=== PATIENT | male | born 1945 | race Caucasian/White ===

== ENCOUNTER 2024-06-13 14:41 | Inpatient (IN) | payer MEDICARE, SELFPAY ==
--- NOTE | ~2024-06-13 | CT_ITS ---
CTA brain carotid Ordering provider: Winnie Becerra APRN History: . seizure . Comparison: 06/13/2024 Technique: CT angiogram head and neck was performed following timed intravenous injection of contrast . Thin slice axial images and reformatted coronal images were obtained. Three dimensional reformatted images of the brain were also obtained using a [employer] workstation. Radiation reduction technique ut ilized. DLP is 1884.42 mGy-cm. 100 mL Omnipaque 350 was given IV. FINDINGS: HEAD: --ANTERIOR AND MIDDLE CEREBRAL ARTERIES AND BRANCHES: Normal caliber and contour. --INTERNAL CAROTID ARTERIES: Mild atheromatous disease but no significant stenosis. No occlusion. --BASILAR ARTERY AND BRANCHES: Mild atheromatous disease but no stenosis or occlusion. --POSTERIOR CEREBRAL ARTERIES: Normal caliber and contour --POSTERIOR COMMUNICATING ARTERIES: Not visualized which is probably related to congenital absence or small size. --ANEURYSM: None visualized. --BRAIN: Brain atrophy with deep white matter ischemic changes. Old lacunar infarct in the right basa l ganglia. Mild ventricular dilatation. --BONES AND SUPERFICIAL SOFT TISSUES: Normal. --PARANASAL SINUSES AND MASTOIDS: Normal. NECK: --RIGHT CERVICAL CAROTID SYSTEM: No significant atherosclerotic changes. Narrowing at the origin of t he right internal carotid artery is seen. Percent stenosis per NASCET criteria is 50%. No carotid dis section. Otherwise, no significant atheromatous disease or stenosis of the cervical carotid system. --LEFT CERVICAL CAROTID SYSTEM: Tortuosity in the left internal carotid artery with severe angulation . Mild atheromatous disease of the carotid bulb and proximal internal carotid artery without signific ant stenosis. Percent stenosis per NASCET criteria is 50%. No carotid dissection. Otherwise, no significant atheromatous disease or stenosis of the cervical carotid system. --VERTEBRAL ARTERIES: Dominant left vertebral artery. The right is very small in caliber. --VISUALIZED AORTIC ARCH AND BRANCHING VESSELS: Normal caliber and contour. No significant atheromato us disease. --SOFT TISSUES: Normal. --CERVICAL SPINE: Age appropriate degenerative changes. IMPRESSION: 1. CTA head and neck. Percent stenosis per NASCET criteria is 50% on the right most likely due to n oncalcified plaques and 50% on the left side due to significant kinking. 2. Tiny caliber of the right vertebral artery with nonvisualization of the intracranial portion. . Reviewed, dictated and finalized at location A. IMPRESSION: 1. CTA head and neck. Percent stenosis per NASCET criteria is 50% on the righ t most likely due to noncalcified plaques and 50% on the left side due to signi ficant kinking. 2. Tiny caliber of the right vertebral artery with nonvisualization of the int racranial portion. .
--- NOTE | ~2024-06-13 | XR_ITS ---
EXAMINATION: XR lumbar puncture diagnostic DATE: 06/16/2024 13:39 INDICATION: Meningitis. TECHNIQUE: The procedure including the risks, benefits, and alternatives was discussed with the patie nt. Risks discussed included spinal headache, cerebrospinal fluid leak, bleeding, and infection. The patient understood the risks and agreed to proceed. A timeout was performed to verify the patient' s name, date of , and procedure to be performed. The skin overlying the L3-L4 level was prepped and draped in usual sterile fashion. Subcutaneous 1% lidocaine was used for local anesthesia. A 20 gauge spinal needle was advanced under fluoroscopic guidance. The needle was removed and the entry s ite was cleaned and dressed. There were no immediate complications. Fluoroscopy exposure time was 0. 1 minutes. The total number of images was 2. FINDINGS: Real-time fluoroscopy demonstrates the needle at the L3-L4 level. The opening pressure was 13 cm water (Normal range is variably defined as 6-20 cm water and up to 25 cm water in obese patient s. Pressure >25 cm water is one of the modified Dandy criteria for idiopathic intracranial hypertensi on). 13 mL of orange fluid was collected in 4 tubes. IMPRESSION: 1. Successful fluoro-guided lumbar puncture. Reviewed, dictated and finalized at location A.
--- NOTE | ~2024-06-13 | CT_ITS ---
EXAMINATION: CT brain wo con DATE: 06/13/2024 15:44 INDICATION: Seizure TECHNIQUE: Computed tomography (CT) of the head was performed without intravenous contrast. Sagittal and coronal reconstructions were performed. The mA was adjusted according to patient size. Iterative reconstruction technique was employed. The dose-length product was 756.67 mGy-cm. COMPARISON: None FINDINGS: Chronic infarct at the anterior right basal ganglia. No acute intracranial hemorrhage, acute infarcti on or abnormal extra axial fluid collection. There is mild scattered white matter hypoattenuation con sistent with chronic small vessel ischemic disease. Symmetric prominence of the sulci and ventricles consistent with moderate to severe age-appropriate diffuse cerebral volume loss. No mass/mass effect . Small left mastoid effusion. The orbits and paranasal sinuses are normal. IMPRESSION: 1. Old infarct at the right basal ganglia. No acute intracranial process. 2. Age-related changes including moderate to severe diffuse volume loss and mild scattered white ravi er hypoattenuation consistent with chronic small vessel ischemic disease. Reviewed, dictated and finalized at location A. IMPRESSION: 1. Old infarct at the right basal ganglia. No acute intracranial process. 2. Age-related changes including moderate to severe diffuse volume loss and mil d scattered white matter hypoattenuation consistent with chronic small vessel i schemic disease.
--- NOTE | ~2024-06-13 | MR_ITS ---
EXAMINATION: MR brain/brain stem wo/w con DATE: 06/16/2024 14:48 INDICATION: Seizure disorder. TECHNIQUE: Magnetic resonance imaging (MRI) of the brain and brainstem was performed without and with 16 mL MultiHance intravenous contrast. COMPARISON: Head CT 06/16/2024 FINDINGS: There is an old infarct in the right basal ganglia. There are scattered areas of nonspecifi c increased T2-weighted signal intensity in the cerebral white matter and gen. There is no intracran ial hemorrhage, acute infarction, or abnormal intracranial mass lesion. There is ex vacuo dilatation of body of right lateral ventricle. There is a small left mastoid effusion. The orbits are normal. Th ere is mild mucosal thickening in the ethmoid sinuses. IMPRESSION: 1. Old infarct in the right basal ganglia. 2. Mild nonspecific cerebral white matter disease and pontine disease, which likely represents chroni c small vessel ischemic disease. Reviewed, dictated and finalized at location A. IMPRESSION: 1. Old infarct in the right basal ganglia. 2. Mild nonspecific cerebral white matter disease and pontine disease, which dwight killian represents chronic small vessel ischemic disease.
[2024-06-13 14:56] VITALS: BP 130/66; PULSE 68; RESP 18; TEMP 36.6; O2SAT 96
--- NOTE | 2024-06-13 14:59 | ECG_ITS ---
Test Date: 2024-06-13 15:10:22 Measurements Intervals [place] Rate: 64 P: 12 ME: 149 QRS: 12 QRSD: 88 T: 82 QT: 425 QTc: 439 Interpretive Statements SINUS RHYTHM NONSPECIFIC ST & T-WAVE ABNORMALITY BORDERLINE ECG No previous ECG available for comparison Electronically Signed On 06-13-2024 18:21:07 CDT by Benjie Elliott M.D.
--- NOTE | 2024-06-13 15:00 | ED.GENADULT ---
HPI - General Adult General Chief complaint: Skin/Abscess/Foreign Body <Arvind Leyva APRN - Last Filed: 06/13/24 15:02> Stated complaint: rash <Arvind Leyva APRN - Last Filed: 06/13/24 15:02> Time Seen by Provider: 06/13/24 15:00 <Arvind Leyva APRN - Last Filed: 06/13/24 15:02> Patient was waiting for triage and had a witness seizure by nursing staffing coordinator. patient is A&Ox1. patient states he does not have a hx of seizures. patient initial complaint was for a rash to BUE. patient is from [place] PE: A&OX1, BS CTA, HR RRR with no murmur, BUE erythema <Arvind Leyva APRN - Last Filed: 06/13/24 15:02> Patient was waiting for triage and had a witness seizure by nursing staffing coordinator. patient is A&Ox1. patient states he does not have a hx of seizures. patient initial complaint was for a rash to BUE. patient is from [place] PE: A&OX1, BS CTA, HR RRR with no murmur, BUE erythema This is a 78-year-old male with dementia presenting for a rash in itching in his hands. This symptoms started yesterday. He does not have any difficulty breathing throat swelling abdominal pain nausea vomiting or diarrhea. No history of allergic reactions. No known allergen triggers. While the patient was sitting in our lobby there was concern that he had a seizure. Per the triage nurse he flexed his arms, turned his head to the right and had either tremors and/or tonic clonic movement. He was then brought back to a room. No tongue biting, no loss of urinary continence. No history of seizures. Patient did not have any postictal period. Patient does not have any chest pain difficulty breathing or history of cardiac dysrhythmia. Patient himself does not remember the event at all. <Pablo Sparks MD - Last Filed: 06/13/24 20:29> Related Data Home medications: Home Medications Medication Instructions Recorded Confirmed fluoxetine 20 mg capsule mg 06/13/24 rosuvastatin 10 mg tablet mg 06/13/24 <Arvind Leyva APRN - Last Filed: 06/13/24 15:02> Allergies/adverse reactions: Allergies Allergy/AdvReac Type Severity Reaction Status Date / Time No Known Allergies Allergy Verified 06/13/24 15:48 <Arvind Leyva APRN - Last Filed: 06/13/24 15:02> Exam Narrative: APPEARANCE: No apparent distress. A&O x2 Head: atraumatic. EYES: EOMI, NOSE: Atraumatic NECK: Trachea midline RESPIRATORY: No increased rate of breathing, clear to auscultation CARDIOVASCULAR: RRR, ABDOMINAL: Non-distended MUSCULOSKELETAl: No obvious deformities NEURO: Alert. Cranial nerves 2-12 grossly intact. Sensation light touch, motor function cerebellar function intact for 4 extremities. Gait exam was deferred SKIN:: Margarita erythematous rash over the patient's hands and forearms. No warmth to touch does not appear infectious, mild edema of the hands PSYCHIATRIC: Normal affect <Pablo Sparks MD - Last Filed: 06/13/24 20:29> Course Vital Signs Vital signs: Vital Signs Temperature 97.8 F 06/13/24 14:56 Pulse Rate 68 06/13/24 14:56 Respiratory Rate 18 06/13/24 14:56 Blood Pressure 130/66 06/13/24 14:56 Pulse Oximetry 96 06/13/24 14:56 Temperature 97.8 F 06/13/24 14:56 Pulse Rate 85 06/13/24 18:59 Respiratory Rate 18 06/13/24 18:59 Blood Pressure 130/73 06/13/24 18:59 Pulse Oximetry 97 06/13/24 18:59 <Arvind Leyva APRN - Last Filed: 06/13/24 15:02> Vital Signs Temperature 97.8 F 06/13/24 14:56 Pulse Rate 68 06/13/24 14:56 Respiratory Rate 18 06/13/24 14:56 Blood Pressure 130/66 06/13/24 14:56 Pulse Oximetry 96 06/13/24 14:56 Temperature 97.8 F 06/13/24 14:56 Pulse Rate 85 06/13/24 18:59 Respiratory Rate 18 06/13/24 18:59 Blood Pressure 130/73 06/13/24 18:59 Pulse Oximetry 97 06/13/24 18:59 <Pablo Sparks MD - Last Filed: 06/13/24 20:29> Medical Decision Making MDM Narrative Medical decision making narrative: -Course: 78-year-old mal
[2024-06-13 15:11] LABS: Basophils Percent Auto 0.2 % (0.2-1.2); Eosinophils Absolute Auto 0.1 K/mm3 (0-0.3); Hematocrit 40.8 % (42.0-52.0); Hemoglobin 13.7 g/dL (14.0-18.0); Immature Granulocyte Absolute 0.05 K/mm3 (0.00-0.031); Immature Granulocyte Percent A 0.4 % (0-0.5); Lymphocytes Absolute Auto 2.57 K/mm3 (0.9-3.2); Lymphocytes Percent Auto 19.6 % (18.3-44.2); Mean Corpuscular HGB Conc 33.6 g/dl (32-36); Mean Corpuscular Hemoglobin 31.5 pg (26-34); Mean Corpuscular Volume 93.8 fl (80-100); Mean Platelet Volume 10.6 fl (7.4-10.4); Monocytes Absolute Auto 0.8 K/mm3 (0.1-0.6); Monocytes Percent Auto 6.2 % (2.6-8.5); Neutrophils Absolute Auto 9.6 K/mm3 (1.3-6.7); Neutrophils Percent Auto 72.6 % (45.5-73.1); Platelet Count Result 258 k/mm3 (150-375); Red Blood Count 4.35 M/mm3 (4.6-6.20); Red Cell Distribution Width 13.4 % (11.5-14.5); White Blood Count 13.1 K/mm3 (4.5-10.0)
[2024-06-13 15:16] LABS: Glucose Point of Care 110 mg/dl (65-105)
[2024-06-13 15:26] LABS: Lactic Acid Reflex 2.7 mmol/L (0.7-2.0)
[2024-06-13 15:27] LABS: Alanine Aminotransferase 21 U/L (6-50); Albumin Level 4.4 g/dL (3.5-5.1); Alkaline Phosphatase 47 U/L (38-126); Anion Gap 13 mmol/L (4-12); Aspartate Amino Transferase 30 U/L (17-59); Bilirubin,Total 1.1 mg/dL (0.2-1.3); Blood Urea Nitrogen 8 mg/dL (9-20); Calcium 9.2 mg/dL (8.4-10.2); Carbon Dioxide 24 mmol/L (22-30); Chloride 94 mmol/L (98-107); Estimated CRCL calculation 51 ml/min; Estimated Glomerular Filt Rate > 60; Glucose 116 mg/dL (65-110); Potassium 4.1 mmol/L (3.4-5.0); Sodium 131 mmol/L (137-145)
[2024-06-13 15:32] LABS: Partial Thromboplastin Time 28.1 Seconds (22.3-36.8); Prothrombin Time 13.9 Seconds (11.1-14.7)
[2024-06-13 15:39] LABS: Troponin I < 0.012 ng/mL (0.000-0.034)
--- NOTE | 2024-06-13 15:44 | PC.NURSE ---
Patient in cat scan
[2024-06-13] MEDS: dexAMETHasone SOD PHOS INJ 10 MG/ML 1 ML VIAL IV PUSH (15:48)
[2024-06-13] MEDS: SODIUM CHLORIDE 0.9% IV 1,000 ML 999 ML IV CONT (15:48)
[2024-06-13] MEDS: diphenhydrAMINE HCl INJ 50 MG/ML VIAL 25 MG IV PUSH (15:49)
[2024-06-13] MEDS: FAMOTIDINE 20 MG/2 ML VIAL 40 MG IV PUSH (15:49)
[2024-06-13 15:57] VITALS: BP 133/83; PULSE 78; RESP 20; O2SAT 96
--- NOTE | 2024-06-13 17:32 | PC.NURSE ---
Patient assisted in using urinal Provider at bedside for update
[2024-06-13 17:59] LABS: Add Urine Microscopic? NO; Appearance Urine Clear (Clear); Bilirubin Urine Negative (Negative); Blood Urine Negative (Negative); Color Urine Yellow (Yellow); Glucose Urine UA Negative (Negative); Ketones Urine Negative (Negative); Leukocyte Esterase Ur Negative LEU/UL (Negative); Nitrate Urine Negative (Negative); Protein Urine Negative (Negative); Specific Grav Ur 1.009 (1.001-1.035); Urobilinogen Urine 0.2 mg/dL (<2.0)
[2024-06-13 18:08] LABS: Reflex Lactic Acid Yes or No Add Lactic
[2024-06-13] MEDS: levETIRAcetam 1500MG/NACL100ML 1,500 MG/100 ML BAG 400 MG IVPB (18:10)
[2024-06-13 18:16] LABS: Amphetamine Screen Urine Negative (Negative); Barbiturate Screen Urine Negative (Negative); Benzodiazepines Screen Urine Negative (Negative); Cannabinoid Screen Urine Negative (Negative); Cocaine Screen Urine Negative (Negative); Methadone Screen Urine Negative (Negative); Opiate Screen Urine Negative (Negative); Phencyclidine Screen Urine Negative (Negative)
[2024-06-13 18:32] LABS: Lactic Acid 1.7 mmol/L (0.7-2.0)
[2024-06-13 18:59] VITALS: BP 130/73; PULSE 85; RESP 18; O2SAT 97
[2024-06-13 19:10] LABS: Influenza A QL RT-PCR Negative (Negative); Influenza B QL RT-PCR Negative (Negative); RSV RNA, RT-PCR Negative (Negative); SARS-CoV-2 RNA PCR Negative (Negative)
[2024-06-13 20:30] VITALS: BP 138/80; PULSE 79; RESP 18; O2SAT 97
--- NOTE | 2024-06-13 22:24 | ADMGEN ---
This patient, Zander Rodriguez, was admitted to Medical Room 341-01. Patient/family oriented to hospital policies and general routines including ID bracelet, bed and alarms, visiting hours, pain management, procedures, bathroom and other care routines, personal items, smoking policy, room service/diet, and visiting hours. Information on how to activate the Rapid Response Team has been discussed. Patient/Family are encouraged to report perceived risks to care and to ask questions if they do not understand what they are told or what they should do.
[2024-06-13 22:41] VITALS: BMI 28.3
[2024-06-13 22:56] VITALS: PULSE 72
[2024-06-13 23:01] VITALS: BP 105/53; PULSE 82; RESP 18; TEMP 36.4; O2SAT 96
--- NOTE | 2024-06-13 23:40 | PM.IMHP ---
H&P: HPI History of Present Illness Date/Time: 06/13/24 23:10 Chief Complaint: Rash Narrative: 78-year-old male with past medical history of dementia, depression and COPD who presented to the ER from [facility] due to rash. The day prior to presentation patient developed rash to his medial right wrist at an extended up his arms to his elbows and across his torso and trunk. The rash was pruritic in nature. He denies any known eliciting symptoms. It is unknown if is facility may have changed detergents. He it does have. Patient was started on fluoxetine last month but otherwise no other known medication changes. The patient is alert orient x3 currently but tends to have disproportionate recall of prior events. He states that he was just discharged from [facility] last week in his daughter actually reports that he has not been hospitalized since September of last year. Patient did receive Decadron and Benadryl in the ER was significant improvement in his rash. However while patient was in the waiting room awaiting triage patient did turn his head to the right and flexed his arms. It is unclear if he had tremors or tonic clonic movement. Patient did not have any mouth trauma loss of bladder or bowel control. He did not have a postictal period and was back to his baseline immediately. Patient did not recall the event and is frustrated that staff keeps asking him about possibly having a seizure. His only concern was his recent rash. He denies any chest pain. He was not noted have any arrhythmia but was not placed on the monitor in still after he event had occurred. CT scan was performed in the ER demonstrated no acute intercranial process. Patient did receive a dose of Keppra in the ER. Patient was admitted for observation and evaluation by Neurology. Review of Systems Review of Systems: Review of systems was attempted but limited due to patient's dementia [facility] Past Medical History Medical History (Updated 06/13/24 @ 23:50 by Raven Francis DO) COPD (chronic obstructive pulmonary disease) Dementia Depression Hyperlipidemia Surgical History Surgical History (Updated 06/13/24 @ 23:48 by Raven Francis DO) History of two vessel coronary artery bypass graft Status post full thickness skin graft Left forearm Family History Family History Mother Heart disease Father Heart disease Social History Social History (Updated 06/14/24 @ 02:22 by Raven Francis, DO) Social History: Patient reports that 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 He reports that he used to smoke a pack of cigarettes per day for ?a few years? but quit when he was quite young. He used to drink alcohol episodically but quit doing so many years ago. He denies any illicit substance use. Code status: DNR/DNI Surrogate decision maker: Edward Nice (Daughter) Smoking packs per day: 1 Smoking cigarettes per day: 20.0 Smoking status: Former smoker Alcohol intake: former Substance use: never Do You Feel Safe in your Home?: Yes Lack of Transportation: No Lack of Food: Never True Current Housing: I Have Housing Concerned About Future Housing: No Difficulty Paying Gas/Electric Bills: No Difficulty Paying for Meds: No Currently Unemployed: No Education: High School Diploma/GED Difficulty w/ Childcare or Family Care: No Spiritual care concerns: No Meds Home Medications and Allergies Home Medications Medication Instructions Recorded Confirmed Type Antacid 650 mg PO Q8-10H PRN Indigestion 06/13/24 06/13/24 History acetaminophen 650 mg 650 mg PO Q6-8H PRN Pain 06/13/24 06/13/24 History tablet,extended release albuterol sulfate 90 mcg/actuation 2 inh inhalation Q6-8H PRN Wheezing 06/13/24 06/13/24 History aerosol inhaler aspirin 81 mg capsule 81 mg PO DAILY 06/13/24 06/13/24 History fluoxetine 20 mg capsule
[2024-06-14] VITALS (14 sets, daily range): BP systolic 107–141; BP diastolic 62–73; PULSE 71–83; RESP 18; TEMP 36.3–36.5; O2SAT 94–97
[2024-06-14] MEDS: MULTIVITAMINS /C LUTEIN (CENTRUM SILVER) TABLET *BKC 1 TAB PO (09:13)
[2024-06-14] MEDS: ENOXAPARIN 40 MG/0.4 ML SYRINGE SUB-Q (09:13)
[2024-06-14] MEDS: guaiFENesin 12 HR 600 MG TABCR PO ×2 (09:14→20:53)
[2024-06-14] MEDS: ASPIRIN 81 MG ENTERIC TABLET PO (09:14)
[2024-06-14] MEDS: FOLIC ACID 1 MG TABLET PO (09:14)
[2024-06-14] MEDS: ROSUVASTATIN 10 MG TABLET PO (09:14)
[2024-06-14 10:01] LABS: Hematocrit 35.5 % (42.0-52.0); Mean Corpuscular HGB Conc 33.8 g/dl (32-36); Mean Corpuscular Hemoglobin 31.3 pg (26-34); Mean Corpuscular Volume 92.7 fl (80-100); Mean Platelet Volume 11.3 fl (7.4-10.4); Platelet Count Result 227 k/mm3 (150-375); Red Blood Count 3.83 M/mm3 (4.6-6.20); Red Cell Distribution Width 13.5 % (11.5-14.5); White Blood Count 10.7 K/mm3 (4.5-10.0)
[2024-06-14 10:13] LABS: Alanine Aminotransferase 18 U/L (6-50); Albumin Level 3.9 g/dL (3.5-5.1); Alkaline Phosphatase 42 U/L (38-126); Anion Gap 10 mmol/L (4-12); Aspartate Amino Transferase 25 U/L (17-59); Bilirubin,Total 0.7 mg/dL (0.2-1.3); Blood Urea Nitrogen 12 mg/dL (9-20); Calcium 9.1 mg/dL (8.4-10.2); Carbon Dioxide 23 mmol/L (22-30); Chloride 100 mmol/L (98-107); Estimated CRCL calculation 63 ml/min; Estimated Glomerular Filt Rate > 60; Glucose 109 mg/dL (65-110); Magnesium 1.9 mg/dL (1.6-2.3); Potassium 3.9 mmol/L (3.4-5.0); Sodium 133 mmol/L (137-145)
--- NOTE | 2024-06-14 17:05 | WPDPN ---
Progress Note: A&P Assessment and Plan (1) Allergic reaction: Qualifiers: Encounter type: subsequent encounter Qualified Code(s): T78.40XD - Allergy, unspecified, subsequent encounter Code(s): T78.40XA - Allergy, unspecified, initial encounter Status: Acute (2) Consciousness loss, transient: Code(s): R55 - Syncope and collapse Status: Acute (3) Dementia: Qualifiers: Dementia type: unspecified type Dementia severity: mild Dementia behavioral or psychological symptom: with mood disturbance Qualified Code(s): F03.A3 - Unspecified dementia, mild, with mood disturbance Code(s): F03.90 - Unspecified dementia, unspecified severity, without behavioral disturbance, psychotic disturbance, mood disturbance, and anxiety Status: Acute (4) Hyponatremia: Code(s): E87.1 - Hypo-osmolality and hyponatremia Status: Acute (5) Leukocytosis: Qualifiers: Leukocytosis type: unspecified Qualified Code(s): D72.829 - Elevated white blood cell count, unspecified Code(s): D72.829 - Elevated white blood cell count, unspecified Status: Acute (6) Lactic acidosis: Code(s): E87.20 - Acidosis, unspecified Status: Acute Plan 06/14/2024 interval history: patient has not had seizures like activities while on the floor, patient was loaded with levetiracetam 1500mg IV x1. and this morning his rash on his hand nearly resolved, unclear if the rash was allergic or infectious however patient was given one time dose of dexamethasone, Famotidine, and diphenhydramine. he his eating his breakfast and has no complaints, however patient has dementia and poor historian. to further evaluate patient will be seen by a neurologist on Sunday, will have PT/OT. Later patient daughter arrived and gave updates, will wait until Sunday for recommendation from the neurologist Subjective Date/time seen: 06/14/24 17:05 Interval history: Chief Complaint: Rash H&H-JNA-Cyewdgqgd: 78-year-old male with past medical history of dementia, depression and COPD who presented to the ER from [facility] due to rash. The day prior to presentation patient developed rash to his medial right wrist at an extended up his arms to his elbows and across his torso and trunk. The rash was pruritic in nature. He denies any known eliciting symptoms. It is unknown if is facility may have changed detergents. He it does have. Patient was started on fluoxetine last month but otherwise no other known medication changes. The patient is alert orient x3 currently but tends to have disproportionate recall of prior events. He states that he was just discharged from [facility] last week in his daughter actually reports that he has not been hospitalized since September of last year. Patient did receive Decadron and Benadryl in the ER was significant improvement in his rash. However while patient was in the waiting room awaiting triage patient did turn his head to the right and flexed his arms. It is unclear if he had tremors or tonic clonic movement. Patient did not have any mouth trauma loss of bladder or bowel control. He did not have a postictal period and was back to his baseline immediately. Patient did not recall the event and is frustrated that staff keeps asking him about possibly having a seizure. His only concern was his recent rash. He denies any chest pain. He was not noted have any arrhythmia but was not placed on the monitor in still after he event had occurred. CT scan was performed in the ER demonstrated no acute intercranial process. Patient did receive a dose of Keppra in the ER. Patient was admitted for observation and evaluation by Neurology. 06/14/2024 interval history: patient has not had seizures like activities while on the floor, patient was loaded with levetiracetam 1500mg IV x1. and this morning his rash on his hand nearly resolved, unclear if the rash was allergic or i
[2024-06-15] VITALS (10 sets, daily range): BP systolic 95–155; BP diastolic 51–77; PULSE 62–94; RESP 16–18; TEMP 36–36.4; O2SAT 93–96
[2024-06-15 05:24] LABS: Hematocrit 34.6 % (42.0-52.0); Hemoglobin 11.6 g/dL (14.0-18.0); Mean Corpuscular HGB Conc 33.5 g/dl (32-36); Mean Corpuscular Hemoglobin 31.4 pg (26-34); Mean Corpuscular Volume 93.5 fl (80-100); Mean Platelet Volume 10.5 fl (7.4-10.4); Platelet Count Result 215 k/mm3 (150-375); Red Cell Distribution Width 13.5 % (11.5-14.5); White Blood Count 11.1 K/mm3 (4.5-10.0)
[2024-06-15 05:38] LABS: Anion Gap 9 mmol/L (4-12); Blood Urea Nitrogen 15 mg/dL (9-20); Calcium 8.8 mg/dL (8.4-10.2); Carbon Dioxide 25 mmol/L (22-30); Chloride 100 mmol/L (98-107); Estimated CRCL calculation 63 ml/min; Estimated Glomerular Filt Rate > 60; Glucose 93 mg/dL (65-110); Magnesium 1.8 mg/dL (1.6-2.3); Potassium 4.2 mmol/L (3.4-5.0); Sodium 134 mmol/L (137-145)
[2024-06-15] MEDS: ENOXAPARIN 40 MG/0.4 ML SYRINGE SUB-Q (09:00)
[2024-06-15] MEDS: MULTIVITAMINS /C LUTEIN (CENTRUM SILVER) TABLET *BKC 1 TAB PO (09:00)
[2024-06-15] MEDS: guaiFENesin 12 HR 600 MG TABCR PO ×2 (09:00→20:42)
[2024-06-15] MEDS: ROSUVASTATIN 10 MG TABLET PO (09:01)
[2024-06-15] MEDS: FOLIC ACID 1 MG TABLET PO (09:01)
[2024-06-15] MEDS: ASPIRIN 81 MG ENTERIC TABLET PO (09:02)
--- NOTE | 2024-06-15 14:05 | WPDPN ---
Progress Note: A&P Assessment and Plan (1) Allergic reaction: Qualifiers: Encounter type: subsequent encounter Qualified Code(s): T78.40XD - Allergy, unspecified, subsequent encounter Code(s): T78.40XA - Allergy, unspecified, initial encounter Status: Acute (2) Consciousness loss, transient: Code(s): R55 - Syncope and collapse Status: Acute (3) Dementia: Qualifiers: Dementia type: unspecified type Dementia severity: mild Dementia behavioral or psychological symptom: with mood disturbance Qualified Code(s): F03.A3 - Unspecified dementia, mild, with mood disturbance Code(s): F03.90 - Unspecified dementia, unspecified severity, without behavioral disturbance, psychotic disturbance, mood disturbance, and anxiety Status: Acute (4) Hyponatremia: Code(s): E87.1 - Hypo-osmolality and hyponatremia Status: Acute (5) Leukocytosis: Qualifiers: Leukocytosis type: unspecified Qualified Code(s): D72.829 - Elevated white blood cell count, unspecified Code(s): D72.829 - Elevated white blood cell count, unspecified Status: Acute (6) Lactic acidosis: Code(s): E87.20 - Acidosis, unspecified Status: Acute Plan 06/15/2024 interval history: patient has not had seizures like activities while on the floor, patient was loaded with levetiracetam 1500mg IV x1. upon arrival in ER and this morning his rash on his hand nearly resolved, unclear if the rash was allergic or infectious however patient was given one time dose of dexamethasone, Famotidine, and diphenhydramine. patient has dementia and poor historian. to further evaluate patient will be seen by a neurologist on Sunday, will have PT/OT. on 06/14 patient daughter arrived and gave updates, will wait until Sunday for recommendation from the neurologist. Subjective Date/time seen: 06/15/24 14:05 Interval history: Chief Complaint: Rash H&E-UMI-Hsdqogbhy: 78-year-old male with past medical history of dementia, depression and COPD who presented to the ER from [facility] due to rash. The day prior to presentation patient developed rash to his medial right wrist at an extended up his arms to his elbows and across his torso and trunk. The rash was pruritic in nature. He denies any known eliciting symptoms. It is unknown if is facility may have changed detergents. He it does have. Patient was started on fluoxetine last month but otherwise no other known medication changes. The patient is alert orient x3 currently but tends to have disproportionate recall of prior events. He states that he was just discharged from [facility] last week in his daughter actually reports that he has not been hospitalized since September of last year. Patient did receive Decadron and Benadryl in the ER was significant improvement in his rash. However while patient was in the waiting room awaiting triage patient did turn his head to the right and flexed his arms. It is unclear if he had tremors or tonic clonic movement. Patient did not have any mouth trauma loss of bladder or bowel control. He did not have a postictal period and was back to his baseline immediately. Patient did not recall the event and is frustrated that staff keeps asking him about possibly having a seizure. His only concern was his recent rash. He denies any chest pain. He was not noted have any arrhythmia but was not placed on the monitor in still after he event had occurred. CT scan was performed in the ER demonstrated no acute intercranial process. Patient did receive a dose of Keppra in the ER. Patient was admitted for observation and evaluation by Neurology. 06/15/2024 interval history: patient has not had seizures like activities while on the floor, patient was loaded with levetiracetam 1500mg IV x1. upon arrival in ER and this morning his rash on his hand nearly resolved, unclear if the rash was allergic or infectious however
[2024-06-15] MEDS: diphenhydrAMINE HCl CAP 25 MG CAPSULE PO (20:42)
[2024-06-15] MEDS: HYDROCORTISONE 1% 30 GM CREAM 1 APPLIC TOPICAL (20:42)
[2024-06-16] VITALS (13 sets, daily range): BP systolic 133–152; BP diastolic 61–84; PULSE 56–76; RESP 16–20; TEMP 36.3–36.4; O2SAT 94–96
--- NOTE | 2024-06-16 | ECHO_ITS ---
Patient Info Name: Zander Rodriguez Age: 78 years : 1945 Gender: Male Ht: 67 in Wt: 181 lbs BSA: 1.99 m2 HR: 69 bpm BP: 152 / 70 mmHg Heart Rhythm: Sinus Rhythm Technical Quality: Good Exam Date: 06/16/2024 3:59 PM Exam Location: Echo Lab Patient Status: Inpatient Admit Date: 06/15/2024 Staff Ordering Physician: Winnie Becerra APRN Director Biology: Salome Miller RDCS Attending Provider: Winnie Becerra APRN Referring Physician: Mariam DANIELS; Exam Type: CA echo doppler w bubble study Study Info Indications - seizure/TIA Complete two-dimensional, color flow and Doppler transthoracic echocardiogram is performed with agitated saline. Summary 1. Left ventricular chamber dimension is normal. 2. Left ventricular systolic function is normal, estimated at 50-55%. 3. There is mildly increased left ventricular wall thickness. 4. The left ventricular diastolic function is grade I diastolic dysfunction. 5. Right ventricular systolic function is normal. 6. Left atrial chamber dimension is mildly enlarged. 7. Intact interatrial septum visualized by color flow and agitated saline imaging. Negative bubble study. 8. There is mild to moderate mitral valve regurgitation. Left Ventricle Left ventricular chamber dimension is normal. Left ventricular systolic function is normal, estimated at 50-55%. There is mildly increased left ventricular wall thickness. The left ventricular diastolic function is grade I diastolic dysfunction. Right Ventricle Right ventricular chamber dimension is normal. Right ventricular systolic function is normal. Left Atria Left atrial chamber dimension is mildly enlarged. Right Atria Right atrial chamber dimension is normal. Atrial Septum Intact interatrial septum visualized by color flow and agitated saline imaging. Negative bubble study. Aortic Valve The aortic valve is not well visualized. There is no aortic valve stenosis. There is trace aortic valve regurgitation. Pulmonic Valve The pulmonic valve is not well visualized. Mitral Valve There is mild to moderate mitral valve regurgitation. The mitral valve annulus is moderately calcified. Tricuspid Valve There is trace tricuspid valve regurgitation. Pericardium/Pleural The pericardium appears epicardial fat pad. There is no pericardial effusion. Inferior Vena Cava Inferior vena cava is not well visualized. Aorta The aortic root size at the sinus of Valsalva is normal. Left Ventricular Outflow Tract Name Value Normal LVOT 2D LVOT Diameter 2.1 cm LVOT Doppler LVOT Peak Gradient 3 mmHg LVOT Mean Gradient 2 mmHg LVOT VTI 22 cm LVOT VTI/AV VTI Ratio 0.9 LVOT Stroke Volume 78 ml LVOT CO 4.3 l/min LVOT CI 2.2 l/min/m2 Pulmonic Valve Name Value Normal PV Doppler
[2024-06-16 05:37] LABS: Hematocrit 36.9 % (42.0-52.0); Hemoglobin 12.5 g/dL (14.0-18.0); Mean Corpuscular HGB Conc 33.9 g/dl (32-36); Mean Corpuscular Hemoglobin 31.1 pg (26-34); Mean Corpuscular Volume 91.8 fl (80-100); Mean Platelet Volume 10.3 fl (7.4-10.4); Platelet Count Result 233 k/mm3 (150-375); Red Blood Count 4.02 M/mm3 (4.6-6.20); Red Cell Distribution Width 13.2 % (11.5-14.5); White Blood Count 8.6 K/mm3 (4.5-10.0)
[2024-06-16 05:49] LABS: Anion Gap 9 mmol/L (4-12); Blood Urea Nitrogen 11 mg/dL (9-20); Calcium 9.4 mg/dL (8.4-10.2); Carbon Dioxide 25 mmol/L (22-30); Chloride 97 mmol/L (98-107); Estimated CRCL calculation 63 ml/min; Estimated Glomerular Filt Rate > 60; Glucose 93 mg/dL (65-110); Magnesium 1.7 mg/dL (1.6-2.3); Potassium 3.8 mmol/L (3.4-5.0); Sodium 131 mmol/L (137-145)
--- NOTE | 2024-06-16 08:38 | PM.IMPN ---
Progress Note: A&P Assessment and Plan (1) Consciousness loss, transient: Code(s): R55 - Syncope and collapse Status: Acute Assessment and Plan: 06/16/24: While in the ED patient had witnessed seizure-like activity without postictal state Patient was given a loading dose of Keppra 1500 mg IV x1 Continue Keppra for now Neurology was consulted Neurochecks q.4 hour Continue cardiac monitoring Spinal tap ordered Will get MRI of brain/brainstem today as well as CTA of Brain and carotid EEG ordered PT and OT ordered (2) Allergic reaction: Qualifiers: Encounter type: subsequent encounter Qualified Code(s): T78.40XD - Allergy, unspecified, subsequent encounter Code(s): T78.40XA - Allergy, unspecified, initial encounter Status: Acute Assessment and Plan: 06/16/24: Continue hydrocortisone cream Patient was given Benadryl while in the ED (3) Dementia: Qualifiers: Dementia behavioral or psychological symptom: with mood disturbance Dementia severity: mild Dementia type: unspecified type Qualified Code(s): F03.A3 - Unspecified dementia, mild, with mood disturbance Code(s): F03.90 - Unspecified dementia, unspecified severity, without behavioral disturbance, psychotic disturbance, mood disturbance, and anxiety Status: Chronic Assessment and Plan: 06/16/24: Not currently on any home medications (4) Hyponatremia: Code(s): E87.1 - Hypo-osmolality and hyponatremia Status: Acute Assessment and Plan: 06/16/24: Sodium 131 today (5) Leukocytosis: Qualifiers: Leukocytosis type: unspecified Qualified Code(s): D72.829 - Elevated white blood cell count, unspecified Code(s): D72.829 - Elevated white blood cell count, unspecified Status: Acute Assessment and Plan: 06/16/24: White blood cell count down to 8.6 today Elevation of white blood cell count likely due to drug reaction/rash, inflammatory change Will get spinal tap today (6) Lactic acidosis: Code(s): E87.20 - Acidosis, unspecified Status: Acute Assessment and Plan: 06/16/24: Initial lactate was 2.7, now down to 1.7 Time Spent With Patient Time with patient: Greater than 35 minutes Subjective Date/time seen: 06/16/24 08:38 Interval history: Interval history: This is a 78-year-old male presented to the hospital on 06/13/[address] [facility] for evaluation of a rash. While in the ER waiting room patient had seizure-like activity that was witnessed, however no postictal state as he returned back to his baseline. 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 Initial labs showed a white blood cell count of 13.1, hemoglobin 13.7, sodium 131, lactic acid 2.7> 1.7 troponin was negative. UA was obtained and was negative. Urine drug screen was negative. Respiratory panel was negative for influenza a and B, RSV, COVID. Patient was started on hydrocortisone cream. 06/16/24: Patient denies any fever, chills, nausea, vomiting, diarrhea, abdominal pain, chest pain, shortness a breath. Labs and test results reviewed. Review of Systems Review of Systems: All systems reviewed & are unremarkable except as noted in HPI and below Constitutional: Constitutional: Reports as per HPI and Reports no additional constitutional complaints Eyes: Eyes: Reports as per HPI and Reports no additional eye complaints ENT: Reports system reviewed and no additional complaints, except as documented and Reports as per HPI Cardiovascular: Cardiovascular: Reports as per HPI and Reports no additional cardiovascular complaints Respiratory: Respiratory: Reports as per HPI and Reports no additional respiratory complaints Gastrointestinal: Gastrointestinal: Reports as per HPI and Reports no additional gastrointestinal complaints Genitourinary: Genitourinary: Reports no
[2024-06-16] MEDS: ENOXAPARIN 40 MG/0.4 ML SYRINGE SUB-Q (08:49)
[2024-06-16] MEDS: guaiFENesin 12 HR 600 MG TABCR PO ×2 (08:49→20:52)
[2024-06-16] MEDS: FOLIC ACID 1 MG TABLET PO (08:49)
[2024-06-16] MEDS: MULTIVITAMINS /C LUTEIN (CENTRUM SILVER) TABLET *BKC 1 TAB PO (08:49)
[2024-06-16] MEDS: ASPIRIN 81 MG ENTERIC TABLET PO (08:49)
[2024-06-16] MEDS: ROSUVASTATIN 10 MG TABLET PO (08:50)
[2024-06-16] MEDS: ACETAMINOPHEN 325 MG TABLET 650 MG PO (08:54)
[2024-06-16] MEDS: diphenhydrAMINE HCl CAP 25 MG CAPSULE PO (08:54)
[2024-06-16] MEDS: levETIRAcetam Tablet 250 MG, levETIRAcetam Tablet 500 MG 750 MG PO ×2 (10:20→20:51)
--- NOTE | 2024-06-16 10:40 | WPDNEURCNPN ---
Assessment and Plan Assessment and plan (1) Seizure: Code(s): R56.9 - Unspecified convulsions Status: Acute (2) Rash: Code(s): R21 - Rash and other nonspecific skin eruption Status: Acute (3) Dementia: Qualifiers: Dementia type: unspecified type Dementia severity: mild Dementia behavioral or psychological symptom: with mood disturbance Qualified Code(s): F03.A3 - Unspecified dementia, mild, with mood disturbance Code(s): F03.90 - Unspecified dementia, unspecified severity, without behavioral disturbance, psychotic disturbance, mood disturbance, and anxiety Status: Chronic Plan Single episode of seizure was witnessed in the emergency room by the raised her nurse. Daughter found him confused 2 hours after he was here although there was no postictal state described by the nurse who saw him at the spell. The rash in fact is getting better. He does not have the appearance of meningeal call infection however that should be considered in the differential diagnosis given the time of the year with a rash and single spell of seizure and hence a spinal tap would be recommended. Thereafter MRI of the brain an EEG would also be recommended. I should follow-up with results of these. In the meanwhile should keep him anticonvulsants. Fifty precautions should be maintained. I spoke to the nursing staff and also with the nurse practitioner on the case Winnie made her aware of these and I shall get follow-up. Consult date: 06/16/24 HPI: Zander Rodriguez is a 78 year old male presented to the hospital with a rash which started about 24 hours prior to presentation. While he was in the waiting area he had a seizure witnessed by a registered nurse. Apparently he had jerking of the body and he did not have any postictal state. However his daughter states that she came here about 2 hours or so after he was in the emergency room and found him to be confused. The patient has history of dementia and he used to drink alcohol until September 2023 and after that he apparently does not drink heavy however via not sure whether he is still trying some at times. The patient did not have any history of seizures or any head trauma. He has not been sick recently. No nausea vomiting or headache or photophobia described. He is in fact getting better in terms of rash as mental status is also stable. He is currently not on antibiotics. 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 Review of Systems Review of Systems: Patient denies any nausea vomiting. The rash started from the hand the left side than he also has a rash on the right side. He has some redness around the waistline no rash on the trunk or in the legs. No lesions in the mouth reported. No fever or chills or any other illness in the recent time. He denies any head trauma. No other symptoms reported. All systems reviewed & are unremarkable except as noted in HPI and below PMFSH Past Medical History Medical History (Updated 06/16/24 @ 10:44 by Rosette Jeter MD) COPD (chronic obstructive pulmonary disease) Dementia Depression Hyperlipidemia Rash Seizure Surgical History Surgical History History of two vessel coronary artery bypass graft Status post full thickness skin graft Left forearm Family History Family History Mother Heart disease Father Heart disease Social History Social History Social History: Patient reports that he used to work for [employer] and for the [employer]. He reports that he used to smoke a pack of cigarettes per day for ?a few years? but quit when he was quite young. He used to drink alcohol episodically but quit doing so many years ago. He denies any illicit substance use. Code status: DNR/DNI Surrogate deci
--- NOTE | 2024-06-16 12:47 | WPDNEUROLOGY ---
Neurology EEG Report General Information Date of Study: 06/16/24 TEST 21 channel electroencephalogram DIAGNOSIS Dizziness and collapse CONDITION OF RECORDING 21 channel EEG recording done by the patient's bedside using 10-20 system electrode placement. EEG NUMBER [id number] CLINICAL HISTORY episode of confusion and unresponsiveness and seizure disorder EEG DESCRIPTION At the beginning of the recording the background activity consists of posterior dominant alpha rhythm at 8 hertz with an amplitude of 15-30 microvolts. This appears moderately formed and reactive drive knee. Anteriorly low amplitude mixed frequency activity was seen. There is a mild anteroposterior gradient. Hyperventilation was not performed. During drowsiness attenuation of background activity and intermittent rhythmic delta activity and diffuse slowing was noted however patient did not progress to stage 2 sleep. Photic stimulation was not performed. IMPRESSION This is a normal EEG obtained during awake and drowsy states.
[2024-06-16 13:44] LABS: Glucose CSF 51 mg/dL (40-70); Total Protein CSF 116 mg/dL (12-60)
[2024-06-16 14:03] LABS: Lymphocytes CSF 37 % (40-80); Monocytes CSF 5 % (15-45); Neutrophils CSF 56 % (0-6)
[2024-06-16 14:04] LABS: Appearance CSF Cloudy (Clear); CSF source CSF
[2024-06-16 14:05] LABS: Color CSF Red (Colorless); Nucleated Cell CSF 15 /uL (0-5); Red Blood Cell CSF 3525 (0-2)
[2024-06-16] MEDS: dexAMETHasone SOD PHOS INJ 10 MG/ML 1 ML VIAL 12.5 MG IV PUSH ×2 (18:41→23:44)
[2024-06-16] MEDS: cefTRIAXone 2 GM/NS 100 ML 2 GM/100 ML BAG IVPB (19:37)
[2024-06-16] MEDS: VANCOMYCIN 2,000 MG/NS 500 ML 2,000 MG/500 ML BAG 250 MG IVPB (20:49)
[2024-06-16 21:30] LABS: Glucose Point of Care 125 mg/dl (65-105)
[2024-06-17] VITALS (10 sets, daily range): BP systolic 117–144; BP diastolic 60–81; PULSE 65–86; RESP 16–20; TEMP 36.1–37.1; O2SAT 92–96
[2024-06-17] MEDS: dexAMETHasone SOD PHOS INJ 10 MG/ML 1 ML VIAL 12.5 MG IV PUSH ×4 (05:28→23:32)
[2024-06-17] MEDS: cefTRIAXone 2 GM/NS 100 ML 2 GM/100 ML BAG IVPB ×2 (05:29→19:17)
[2024-06-17 05:53] LABS: Hemoglobin 13.2 g/dL (14.0-18.0); Mean Corpuscular HGB Conc 33.8 g/dl (32-36); Mean Corpuscular Hemoglobin 31.4 pg (26-34); Mean Corpuscular Volume 92.9 fl (80-100); Mean Platelet Volume 10.9 fl (7.4-10.4); Platelet Count Result 267 k/mm3 (150-375); Red Cell Distribution Width 13.2 % (11.5-14.5); White Blood Count 5.2 K/mm3 (4.5-10.0)
[2024-06-17 06:03] LABS: Anion Gap 11 mmol/L (4-12); Blood Urea Nitrogen 14 mg/dL (9-20); Calcium 9.4 mg/dL (8.4-10.2); Carbon Dioxide 23 mmol/L (22-30); Chloride 98 mmol/L (98-107); Estimated CRCL calculation 63 ml/min; Estimated Glomerular Filt Rate > 60; Glucose 153 mg/dL (65-110); Potassium 4.3 mmol/L (3.4-5.0); Sodium 132 mmol/L (137-145)
[2024-06-17 08:20] LABS: Glucose Point of Care 142 mg/dl (65-105)
[2024-06-17] MEDS: levETIRAcetam Tablet 250 MG, levETIRAcetam Tablet 500 MG 750 MG PO ×2 (09:16→20:31)
[2024-06-17] MEDS: guaiFENesin 12 HR 600 MG TABCR PO ×2 (09:16→20:31)
[2024-06-17] MEDS: ASPIRIN 81 MG ENTERIC TABLET PO (09:16)
[2024-06-17] MEDS: MULTIVITAMINS /C LUTEIN (CENTRUM SILVER) TABLET *BKC 1 TAB PO (09:16)
[2024-06-17] MEDS: ENOXAPARIN 40 MG/0.4 ML SYRINGE SUB-Q (09:16)
[2024-06-17] MEDS: FOLIC ACID 1 MG TABLET PO (09:16)
[2024-06-17] MEDS: ROSUVASTATIN 10 MG TABLET PO (09:19)
--- NOTE | 2024-06-17 10:49 | P.PNIM_ITS ---
Progress Note: A&P Assessment and Plan (1) Consciousness loss, transient: Code(s): R55 - Syncope and collapse Status: Acute Assessment and Plan: 06/16/24: * While in the ED patient had witnessed seizure-like activity without postictal state * Patient was given a loading dose of Keppra 1500 mg IV x1 * Continue Keppra for now * Neurology was consulted * Neurochecks q.4 hour * Continue cardiac monitoring * Spinal tap ordered * Will get MRI of brain/brainstem today as well as CTA of Brain and carotid * EEG ordered * PT and OT ordered 06/17/24: * Spinal tap showing 3525 RBC, 56 neutrophil, 37 lymphocytes, 5 monocytes, total protein 116 * Culture is pending * Neurology following * EEG was normal * 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, age-related changes * Patient was started on 2 g of Rocephin, vancomycin, and dexamethasone 12.5 mg IV push q.6 hours * Echo results are pending * PT and OT (2) Allergic reaction: Qualifiers: Encounter type: subsequent encounter Qualified Code(s): T78.40XD - Allergy, unspecified, subsequent encounter Code(s): T78.40XA - Allergy, unspecified, initial encounter Status: Acute Assessment and Plan: 06/16/24: * Continue hydrocortisone cream * Patient was given Benadryl while in the ED 06/17/24: * No change to current treatment plan (3) Hyponatremia: Code(s): E87.1 - Hypo-osmolality and hyponatremia Status: Acute Assessment and Plan: 06/16/24: * Sodium 131 today * Continue to trend 06/17/24: * Sodium 132 * Continue to trend (4) Leukocytosis: Qualifiers: Leukocytosis type: unspecified Qualified Code(s): D72.829 - Elevated white blood cell count, unspecified Code(s): D72.829 - Elevated white blood cell count, unspecified Status: Acute Assessment and Plan: 06/16/24: * White blood cell count down to 8.6 today * Elevation of white blood cell count likely due to drug reaction/rash, inflammatory change * Will get spinal tap today 06/17/24: * Spinal tap showing 3525 RBC, 56 neutrophil, 37 lymphocytes, 5 monocytes, total protein 116 * CSF culture is pending * Patient started on Rocephin 2 g, vancomycin, dexamethasone (5) Lactic acidosis: Code(s): E87.20 - Acidosis, unspecified Status: Acute Assessment and Plan: 06/16/24: * Initial lactate was 2.7, now down to 1.7 06/17/24: * Patient currently on Rocephin 2 g, vancomycin, dexamethasone for meningitis coverage Time Spent With Patient Time with patient: Greater than 35 minutes Subjective Date/time seen: 06/17/24 10:49 Interval history: Interval history: This is a 78-year-old male presented to the hospital on 06/13/2024 from [facility] for evaluation of a rash. While in the ER waiting room patient had seizure-like activity that was witnessed, however no postictal state as he returned back to his baseline. 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 Initial labs showed a white blood cell count of 13.1, hemoglobin 13.7, sodium 131, lactic acid 2.7> 1.7 troponin was negative. UA was obtained and was negative. Urine drug screen was negative. Respiratory panel was negative for influenza a and B, RSV, COVID. Patient was started on hydrocortisone cream. Patient had spinal tap done 06/16/24 and CSF is showing 3525 RBC, 56 neutrophil, 37 lymphocytes, 116 total protein. He also had an EEG which was normal. Brain MRI on 06/16/2024 sh
--- NOTE | 2024-06-17 10:49 | PM.IMPN ---
Progress Note: A&P Assessment and Plan (1) Consciousness loss, transient: Code(s): R55 - Syncope and collapse Status: Acute Assessment and Plan: 06/16/24: While in the ED patient had witnessed seizure-like activity without postictal state Patient was given a loading dose of Keppra 1500 mg IV x1 Continue Keppra for now Neurology was consulted Neurochecks q.4 hour Continue cardiac monitoring Spinal tap ordered Will get MRI of brain/brainstem today as well as CTA of Brain and carotid EEG ordered PT and OT ordered 06/17/24: Spinal tap showing 3525 RBC, 56 neutrophil, 37 lymphocytes, 5 monocytes, total protein 116 Culture is pending Neurology following EEG was normal 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, age-related changes Patient was started on 2 g of Rocephin, vancomycin, and dexamethasone 12.5 mg IV push q.6 hours Echo results are pending PT and OT (2) Allergic reaction: Qualifiers: Encounter type: subsequent encounter Qualified Code(s): T78.40XD - Allergy, unspecified, subsequent encounter Code(s): T78.40XA - Allergy, unspecified, initial encounter Status: Acute Assessment and Plan: 06/16/24: Continue hydrocortisone cream Patient was given Benadryl while in the ED 06/17/24: No change to current treatment plan (3) Hyponatremia: Code(s): E87.1 - Hypo-osmolality and hyponatremia Status: Acute Assessment and Plan: 06/16/24: Sodium 131 today Continue to trend 06/17/24: Sodium 132 Continue to trend (4) Leukocytosis: Qualifiers: Leukocytosis type: unspecified Qualified Code(s): D72.829 - Elevated white blood cell count, unspecified Code(s): D72.829 - Elevated white blood cell count, unspecified Status: Acute Assessment and Plan: 06/16/24: White blood cell count down to 8.6 today Elevation of white blood cell count likely due to drug reaction/rash, inflammatory change Will get spinal tap today 06/17/24: Spinal tap showing 3525 RBC, 56 neutrophil, 37 lymphocytes, 5 monocytes, total protein 116 CSF culture is pending Patient started on Rocephin 2 g, vancomycin, dexamethasone (5) Lactic acidosis: Code(s): E87.20 - Acidosis, unspecified Status: Acute Assessment and Plan: 06/16/24: Initial lactate was 2.7, now down to 1.7 06/17/24: Patient currently on Rocephin 2 g, vancomycin, dexamethasone for meningitis coverage Time Spent With Patient Time with patient: Greater than 35 minutes Subjective Date/time seen: 06/17/24 10:49 Interval history: Interval history: This is a 78-year-old male presented to the hospital on 06/13/2024 from [facility] for evaluation of a rash. While in the ER waiting room patient had seizure-like activity that was witnessed, however no postictal state as he returned back to his baseline. 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 Initial labs showed a white blood cell count of 13.1, hemoglobin 13.7, sodium 131, lactic acid 2.7> 1.7 troponin was negative. UA was obtained and was negative. Urine drug screen was negative. Respiratory panel was negative for influenza a and B, RSV, COVID. Patient was started on hydrocortisone cream. Patient had spinal tap done 06/16/24 and CSF is showing 3525 RBC, 56 neutrophil, 37 lymphocytes, 116 total protein. He also had an EEG which was normal. Brain MRI on 06/16/2024 showed old infarct in the right basal ganglia, age-related changes. Patient was started on 2 g of Rocephin, vancomycin, and dexamethasone per neurology recommendation. 06/17/24: Patient denies any new complaints today. Labs and test results reviewed. Review of Systems Review of Systems: Review of systems was attempted but limited due to patient's dementia All systems reviewed & are unremarkable except as noted in HPI and below ROS unobtaina
[2024-06-17 11:59] LABS: Glucose Point of Care 218 mg/dl (65-105)
[2024-06-17] MEDS: VANCOMYCIN 1,500 MG/NS 500 ML 1,500 MG/500 ML BAG 250 MG IVPB (15:50)
[2024-06-18] VITALS (9 sets, daily range): BP systolic 116–136; BP diastolic 67–81; PULSE 63–97; RESP 17–20; TEMP 36.2–36.8; O2SAT 94–98
[2024-06-18] MEDS: cefTRIAXone 2 GM/NS 100 ML 2 GM/100 ML BAG IVPB ×2 (05:41→17:27)
[2024-06-18] MEDS: dexAMETHasone SOD PHOS INJ 10 MG/ML 1 ML VIAL 12.5 MG IV PUSH (05:41)
[2024-06-18] MEDS: ENOXAPARIN 40 MG/0.4 ML SYRINGE SUB-Q (08:18)
[2024-06-18 08:19] LABS: Basophils Percent Auto 0.1 % (0.2-1.2); Hematocrit 34.7 % (42.0-52.0); Hemoglobin 11.9 g/dL (14.0-18.0); Immature Granulocyte Percent A 0.6 % (0-0.5); Lymphocytes Absolute Auto 1.13 K/mm3 (0.9-3.2); Lymphocytes Percent Auto 6.9 % (18.3-44.2); Mean Corpuscular HGB Conc 34.3 g/dl (32-36); Mean Corpuscular Hemoglobin 31.7 pg (26-34); Mean Corpuscular Volume 92.5 fl (80-100); Mean Platelet Volume 10.7 fl (7.4-10.4); Monocytes Absolute Auto 0.4 K/mm3 (0.1-0.6); Monocytes Percent Auto 2.3 % (2.6-8.5); Neutrophils Absolute Auto 14.8 K/mm3 (1.3-6.7); Neutrophils Percent Auto 90.1 % (45.5-73.1); Platelet Count Result 279 k/mm3 (150-375); Red Blood Count 3.75 M/mm3 (4.6-6.20); White Blood Count 16.5 K/mm3 (4.5-10.0)
[2024-06-18] MEDS: guaiFENesin 12 HR 600 MG TABCR PO ×2 (08:19→20:10)
[2024-06-18] MEDS: FOLIC ACID 1 MG TABLET PO (08:19)
[2024-06-18] MEDS: ASPIRIN 81 MG ENTERIC TABLET PO (08:19)
[2024-06-18] MEDS: ROSUVASTATIN 10 MG TABLET PO (08:19)
[2024-06-18] MEDS: MULTIVITAMINS /C LUTEIN (CENTRUM SILVER) TABLET *BKC 1 TAB PO (08:19)
[2024-06-18] MEDS: levETIRAcetam Tablet 250 MG, levETIRAcetam Tablet 500 MG 750 MG PO ×2 (08:19→20:11)
[2024-06-18 08:29] LABS: Alanine Aminotransferase 31 U/L (6-50); Albumin Level 3.8 g/dL (3.5-5.1); Alkaline Phosphatase 41 U/L (38-126); Anion Gap 12 mmol/L (4-12); Aspartate Amino Transferase 29 U/L (17-59); Bilirubin,Total 0.2 mg/dL (0.2-1.3); Blood Urea Nitrogen 16 mg/dL (9-20); Calcium 9.2 mg/dL (8.4-10.2); Carbon Dioxide 23 mmol/L (22-30); Chloride 99 mmol/L (98-107); Estimated CRCL calculation 71 ml/min; Estimated Glomerular Filt Rate > 60; Glucose 149 mg/dL (65-110); Magnesium 1.9 mg/dL (1.6-2.3); Potassium 3.7 mmol/L (3.4-5.0); Sodium 134 mmol/L (137-145)
[2024-06-18 09:41] LABS: Vancomycin Trough 8.5 ug/mL (10.0-20.0)
[2024-06-18] MEDS: VANCOMYCIN 1,750 MG/NS 500 ML 1,750 MG/500 ML BAG 250 MG IVPB (10:00)
--- NOTE | 2024-06-18 11:06 | P.PNIM_ITS ---
Progress Note: A&P Assessment and Plan (1) Consciousness loss, transient: Code(s): R55 - Syncope and collapse Status: Acute Assessment and Plan: 06/16/24: * While in the ED patient had witnessed seizure-like activity without postictal state * Patient was given a loading dose of Keppra 1500 mg IV x1 * Continue Keppra for now * Neurology was consulted * Neurochecks q.4 hour * Continue cardiac monitoring * Spinal tap ordered * Will get MRI of brain/brainstem today as well as CTA of Brain and carotid * EEG ordered * PT and OT ordered 06/17/24: * Spinal tap showing 3525 RBC, 56 neutrophil, 37 lymphocytes, 5 monocytes, total protein 116 * Culture is pending * Neurology following * EEG was normal * 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, age-related changes * Patient was started on 2 g of Rocephin, vancomycin, and dexamethasone 12.5 mg IV push q.6 hours * Echo results are pending * PT and OT 06/18/24: * HISTOPATHOLOGY TECHNICIAN culture is still pending * Neurology following * Continue PT and OT * Continue IV antibiotics * Will decrease dexamethasone down to 6 mg q.6 hour (2) Allergic reaction: Qualifiers: Encounter type: subsequent encounter Qualified Code(s): T78.40XD - Allergy, unspecified, subsequent encounter Code(s): T78.40XA - Allergy, unspecified, initial encounter Status: Acute Assessment and Plan: 06/16/24: * Continue hydrocortisone cream * Patient was given Benadryl while in the ED 06/17/24: * No change to current treatment plan (3) Hyponatremia: Code(s): E87.1 - Hypo-osmolality and hyponatremia Status: Acute Assessment and Plan: 06/16/24: * Sodium 131 today * Continue to trend 06/17/24: * Sodium 132 * Continue to trend 06/18/24: * Sodium 134 * Continue to trend (4) Leukocytosis: Qualifiers: Leukocytosis type: unspecified Qualified Code(s): D72.829 - Elevated white blood cell count, unspecified Code(s): D72.829 - Elevated white blood cell count, unspecified Status: Acute Assessment and Plan: 06/16/24: * White blood cell count down to 8.6 today * Elevation of white blood cell count likely due to drug reaction/rash, inflammatory change * Will get spinal tap today * 06/17/24: * Spinal tap showing 3525 RBC, 56 neutrophil, 37 lymphocytes, 5 monocytes, total protein 116 * CSF culture is pending * Patient started on Rocephin 2 g, vancomycin, dexamethasone 06/18/24: * Will transition to oral antibiotics tomorrow * Decrease dexamethasone * CSF culture is still pending * White blood cell count 16.5 today likely reactive to the dexamethasone (5) Lactic acidosis: Code(s): E87.20 - Acidosis, unspecified Status: Acute Assessment and Plan: 06/16/24: * Initial lactate was 2.7, now down to 1.7 06/17/24: * Patient currently on Rocephin 2 g, vancomycin, dexamethasone for meningitis coverage 06/18/24: * Continue IV antibiotics Time Spent With Patient Time with patient: Greater than 35 minutes Subjective Date/time seen: 06/18/24 11:06 Interval history: Interval history: This is a 78-year-old male presented to the hospital on 06/13/2024 from [facility] for evaluation of a rash. While in the ER waiting room patient had seizure-like activity that was witnessed, however no postictal state as he returned back to his baseline. Workup in the hospital included CT of the head which showed an old infarct at the right ba
--- NOTE | 2024-06-18 11:06 | PM.IMPN ---
Progress Note: A&P Assessment and Plan (1) Consciousness loss, transient: Code(s): R55 - Syncope and collapse Status: Acute Assessment and Plan: 06/16/24: While in the ED patient had witnessed seizure-like activity without postictal state Patient was given a loading dose of Keppra 1500 mg IV x1 Continue Keppra for now Neurology was consulted Neurochecks q.4 hour Continue cardiac monitoring Spinal tap ordered Will get MRI of brain/brainstem today as well as CTA of Brain and carotid EEG ordered PT and OT ordered 06/17/24: Spinal tap showing 3525 RBC, 56 neutrophil, 37 lymphocytes, 5 monocytes, total protein 116 Culture is pending Neurology following EEG was normal 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, age-related changes Patient was started on 2 g of Rocephin, vancomycin, and dexamethasone 12.5 mg IV push q.6 hours Echo results are pending PT and OT 06/18/24: SOFTWARE SUPPORT TECHNICIAN culture is still pending Neurology following Continue PT and OT Continue IV antibiotics Will decrease dexamethasone down to 6 mg q.6 hour (2) Allergic reaction: Qualifiers: Encounter type: subsequent encounter Qualified Code(s): T78.40XD - Allergy, unspecified, subsequent encounter Code(s): T78.40XA - Allergy, unspecified, initial encounter Status: Acute Assessment and Plan: 06/16/24: Continue hydrocortisone cream Patient was given Benadryl while in the ED 06/17/24: No change to current treatment plan (3) Hyponatremia: Code(s): E87.1 - Hypo-osmolality and hyponatremia Status: Acute Assessment and Plan: 06/16/24: Sodium 131 today Continue to trend 06/17/24: Sodium 132 Continue to trend 06/18/24: Sodium 134 Continue to trend (4) Leukocytosis: Qualifiers: Leukocytosis type: unspecified Qualified Code(s): D72.829 - Elevated white blood cell count, unspecified Code(s): D72.829 - Elevated white blood cell count, unspecified Status: Acute Assessment and Plan: 06/16/24: White blood cell count down to 8.6 today Elevation of white blood cell count likely due to drug reaction/rash, inflammatory change Will get spinal tap today 06/17/24: Spinal tap showing 3525 RBC, 56 neutrophil, 37 lymphocytes, 5 monocytes, total protein 116 CSF culture is pending Patient started on Rocephin 2 g, vancomycin, dexamethasone 06/18/24: Will transition to oral antibiotics tomorrow Decrease dexamethasone CSF culture is still pending White blood cell count 16.5 today likely reactive to the dexamethasone (5) Lactic acidosis: Code(s): E87.20 - Acidosis, unspecified Status: Acute Assessment and Plan: 06/16/24: Initial lactate was 2.7, now down to 1.7 06/17/24: Patient currently on Rocephin 2 g, vancomycin, dexamethasone for meningitis coverage 06/18/24: Continue IV antibiotics Time Spent With Patient Time with patient: Greater than 35 minutes Subjective Date/time seen: 06/18/24 11:06 Interval history: Interval history: This is a 78-year-old male presented to the hospital on 06/13/2024 from [facility] for evaluation of a rash. While in the ER waiting room patient had seizure-like activity that was witnessed, however no postictal state as he returned back to his baseline. 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 Initial labs showed a white blood cell count of 13.1, hemoglobin 13.7, sodium 131, lactic acid 2.7> 1.7 troponin was negative. UA was obtained and was negative. Urine drug screen was negative. Respiratory panel was negative for influenza a and B, RSV, COVID. Patient was started on hydrocortisone cream. Patient had spinal tap done 06/16/24 and CSF is showing 3525 RBC, 56 neutrophil, 37 lymphocytes, 116 total protein. He also had an EEG which was normal. Brain MRI on 06/16/2024 showed old infarct in the
[2024-06-18] MEDS: dexAMETHasone SOD PHOS INJ 10 MG/ML 1 ML VIAL 6 MG IV PUSH ×3 (12:35→23:59)
[2024-06-18] MEDS: MIRTAZAPINE 7.5 MG TABLET PO (20:10)
[2024-06-19 04:00] VITALS: BP 137/77; PULSE 57; RESP 20; TEMP 36.6; O2SAT 97
[2024-06-19] MEDS: cefTRIAXone 2 GM/NS 100 ML 2 GM/100 ML BAG IVPB (05:30)
[2024-06-19] MEDS: dexAMETHasone SOD PHOS INJ 10 MG/ML 1 ML VIAL 6 MG IV PUSH (05:30)
[2024-06-19 05:43] LABS: Hematocrit 33.8 % (42.0-52.0); Hemoglobin 11.4 g/dL (14.0-18.0); Mean Corpuscular HGB Conc 33.7 g/dl (32-36); Mean Corpuscular Hemoglobin 31.6 pg (26-34); Mean Corpuscular Volume 93.6 fl (80-100); Mean Platelet Volume 10.4 fl (7.4-10.4); Platelet Count Result 273 k/mm3 (150-375); Red Blood Count 3.61 M/mm3 (4.6-6.20); Red Cell Distribution Width 13.3 % (11.5-14.5); White Blood Count 13.3 K/mm3 (4.5-10.0)
[2024-06-19 05:55] LABS: Anion Gap 8 mmol/L (4-12); Blood Urea Nitrogen 19 mg/dL (9-20); Calcium 9.2 mg/dL (8.4-10.2); Carbon Dioxide 27 mmol/L (22-30); Chloride 102 mmol/L (98-107); Estimated CRCL calculation 63 ml/min; Estimated Glomerular Filt Rate > 60; Glucose 118 mg/dL (65-110); Magnesium 2.2 mg/dL (1.6-2.3); Potassium 4.2 mmol/L (3.4-5.0); Sodium 137 mmol/L (137-145)
[2024-06-19] MEDS: levETIRAcetam Tablet 250 MG, levETIRAcetam Tablet 500 MG 750 MG PO (08:48)
[2024-06-19] MEDS: MULTIVITAMINS /C LUTEIN (CENTRUM SILVER) TABLET *BKC 1 TAB PO (08:48)
[2024-06-19] MEDS: ROSUVASTATIN 10 MG TABLET PO (08:49)
[2024-06-19] MEDS: guaiFENesin 12 HR 600 MG TABCR PO (08:49)
[2024-06-19] MEDS: ASPIRIN 81 MG ENTERIC TABLET PO (08:49)
[2024-06-19] MEDS: FOLIC ACID 1 MG TABLET PO (08:49)
[2024-06-19] MEDS: ENOXAPARIN 40 MG/0.4 ML SYRINGE SUB-Q (08:49)
[2024-06-19 09:19] VITALS: BP 142/82; PULSE 59; RESP 16; TEMP 36.5; O2SAT 93
--- NOTE | 2024-06-19 11:35 | P.PNIM_ITS ---
Progress Note: A&P Assessment and Plan (1) Consciousness loss, transient: Code(s): R55 - Syncope and collapse Status: Acute Assessment and Plan: 06/16/24: * While in the ED patient had witnessed seizure-like activity without postictal state * Patient was given a loading dose of Keppra 1500 mg IV x1 * Continue Keppra for now * Neurology was consulted * Neurochecks q.4 hour * Continue cardiac monitoring * Spinal tap ordered * Will get MRI of brain/brainstem today as well as CTA of Brain and carotid * EEG ordered * PT and OT ordered 06/17/24: * Spinal tap showing 3525 RBC, 56 neutrophil, 37 lymphocytes, 5 monocytes, total protein 116 * Culture is pending * Neurology following * EEG was normal * 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 (2) Allergic reaction: Qualifiers: Encounter type: subsequent encounter Qualified Code(s): T78.40XD - Allergy, unspecified, subsequent encounter Code(s): T78.40XA - Allergy, unspecified, initial encounter Status: Acute Assessment and Plan: 06/16/24: * Continue hydrocortisone cream * Patient was given Benadryl while in the ED 06/17/24: * No change to current treatment plan (3) Hyponatremia: Code(s): E87.1 - Hypo-osmolality and hyponatremia Status: Acute Assessment and Plan: 06/16/24: * Sodium 131 today * Continue to trend 06/17/24: * Sodium 132 * Continue to trend 06/18/24: * Sodium 134 * Continue to trend 06/19/24: * Sodium 137 * Resolved (4) Leukocytosis: Qualifiers: Leukocytosis type: unspecified Qualified Code(s): D72.829 - Elevated white blood cell count, unspecified Code(s): D72.829 - Elevated white blood cell count, unspecified Status: Acute Assessment and Plan: 06/16/24: * White blood cell count down to 8.6 today * Elevation of white blood cell count likely due to drug reaction/rash, inflammatory change * Will get spinal tap today * 06/17/24: * Spinal tap showing 3525 RBC, 56 neutrophil, 37 lymphocytes, 5 monocytes, total protein 116 * CSF culture is pending * Patient started on Rocephin 2 g, vancomycin, dexamethasone 06/18/24: * Will transition to oral antibiotics tomorrow * Decrease dexamethasone * CSF culture is still pending * White blood cell count 16.5 today likely reactive to the dexamethasone 06/19/24: * Transition to oral doxycycline and will need duration of 14 days * Decrease dexamethasone to 6 mg b.i.d. * CSF cultures still pending * Tick-borne panel still pending * White blood cell count down to 13.3 today Time Spent With Patient Time with patient: 25 - 35 minutes Subjective Date/time seen: 06/19/24 11:35 Interval history: Interval history: This is a 78-year-old male presented to the hospital on 06/13/2024 from [facility] for evaluation of a rash. While in the ER waiting room patient had seizure-like acti
--- NOTE | 2024-06-19 11:35 | PM.IMPN ---
Progress Note: A&P Assessment and Plan (1) Consciousness loss, transient: Code(s): R55 - Syncope and collapse Status: Acute Assessment and Plan: 06/16/24: While in the ED patient had witnessed seizure-like activity without postictal state Patient was given a loading dose of Keppra 1500 mg IV x1 Continue Keppra for now Neurology was consulted Neurochecks q.4 hour Continue cardiac monitoring Spinal tap ordered Will get MRI of brain/brainstem today as well as CTA of Brain and carotid EEG ordered PT and OT ordered 06/17/24: Spinal tap showing 3525 RBC, 56 neutrophil, 37 lymphocytes, 5 monocytes, total protein 116 Culture is pending Neurology following EEG was normal 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 (2) Allergic reaction: Qualifiers: Encounter type: subsequent encounter Qualified Code(s): T78.40XD - Allergy, unspecified, subsequent encounter Code(s): T78.40XA - Allergy, unspecified, initial encounter Status: Acute Assessment and Plan: 06/16/24: Continue hydrocortisone cream Patient was given Benadryl while in the ED 06/17/24: No change to current treatment plan (3) Hyponatremia: Code(s): E87.1 - Hypo-osmolality and hyponatremia Status: Acute Assessment and Plan: 06/16/24: Sodium 131 today Continue to trend 06/17/24: Sodium 132 Continue to trend 06/18/24: Sodium 134 Continue to trend 06/19/24: Sodium 137 Resolved (4) Leukocytosis: Qualifiers: Leukocytosis type: unspecified Qualified Code(s): D72.829 - Elevated white blood cell count, unspecified Code(s): D72.829 - Elevated white blood cell count, unspecified Status: Acute Assessment and Plan: 06/16/24: White blood cell count down to 8.6 today Elevation of white blood cell count likely due to drug reaction/rash, inflammatory change Will get spinal tap today 06/17/24: Spinal tap showing 3525 RBC, 56 neutrophil, 37 lymphocytes, 5 monocytes, total protein 116 CSF culture is pending Patient started on Rocephin 2 g, vancomycin, dexamethasone 06/18/24: Will transition to oral antibiotics tomorrow Decrease dexamethasone CSF culture is still pending White blood cell count 16.5 today likely reactive to the dexamethasone 06/19/24: Transition to oral doxycycline and will need duration of 14 days Decrease dexamethasone to 6 mg b.i.d. CSF cultures still pending Tick-borne panel still pending White blood cell count down to 13.3 today Time Spent With Patient Time with patient: 25 - 35 minutes Subjective Date/time seen: 06/19/24 11:35 Interval history: Interval history: This is a 78-year-old male presented to the hospital on 06/13/2024 from [facility] for evaluation of a rash. While in the ER waiting room patient had seizure-like activity that was witnessed, however no postictal state as he returned back to his baseline. 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 Initial labs showed a white blood cell count of 13.1, hemoglobin 13.7, sodium 131, lactic acid 2.7> 1.7 troponin was negative. UA was obtained and was negative. Urine drug screen was negative. Respiratory panel was negative for influenza a and B, RSV, COVID. Patient was started on hydrocortisone cream. Patient had spinal tap done 06/16/24 and
[2024-06-19 12:00] VITALS: BP 107/62; PULSE 65; RESP 18; TEMP 36.6; O2SAT 95
--- NOTE | 2024-06-19 12:12 | PM.DS ---
DS: Admitting Diagnosis Discharge Date 06/19/24 Admitting Diagnosis Allergic reaction Consciousness loss, transient Dementia hyponatremia Leukocytosis Lactic acidosis DS: Discharge Diagnosis Discharge Diagnosis (1) Consciousness loss, transient: Code(s): R55 - Syncope and collapse Status: Acute (2) Allergic reaction: Qualifiers: Encounter type: subsequent encounter Qualified Code(s): T78.40XD - Allergy, unspecified, subsequent encounter Code(s): T78.40XA - Allergy, unspecified, initial encounter Status: Acute (3) Hyponatremia: Code(s): E87.1 - Hypo-osmolality and hyponatremia Status: Acute (4) Leukocytosis: Qualifiers: Leukocytosis type: unspecified Qualified Code(s): D72.829 - Elevated white blood cell count, unspecified Code(s): D72.829 - Elevated white blood cell count, unspecified Status: Acute DS: Summary Hospital Course Reason for hospitalization: Allergic reaction Consciousness loss, transient Dementia hyponatremia Leukocytosis Lactic acidosis Hospital Course: This is a 78-year-old male presented to the hospital on 06/13/2024 from [facility] for evaluation of a rash. While in the ER waiting room patient had seizure-like activity that was witnessed, however no postictal state as he returned back to his baseline. 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 Initial labs showed a white blood cell count of 13.1, hemoglobin 13.7, sodium 131, lactic acid 2.7> 1.7 troponin was negative. UA was obtained and was negative. Urine drug screen was negative. Respiratory panel was negative for influenza a and B, RSV, COVID. Patient was started on hydrocortisone cream. Patient had spinal tap done 06/16/24 and CSF is showing 3525 RBC, 56 neutrophil, 37 lymphocytes, 116 total protein. He also had an EEG which was normal. Brain MRI on 06/16/2024 showed old infarct in the right basal ganglia, age-related changes. Patient was started on 2 g of Rocephin, vancomycin, and dexamethasone per neurology recommendation. Today 06/19/2024 Rocephin and vancomycin was discontinued and patient was continued on doxycycline and dexamethasone was decreased. Cultures are coming back negative for meningitis. Tick-borne panel is still pending. We will continue to watch for these labs to come back. He is stable for discharge at this time. Rash is improved. He will stay on Keppra per neurology recommendation and can follow up with his primary care physician in 1 week. Final diagnosis: Seizure, rash unknown origin Status at Discharge Cognitive/behavioral status at discharge: Alert and oriented x3 Functional status at discharge: uses cane/walker Overall status at discharge: patient is progressing back to baseline Time Spent with Patient Time attestation: Total time spent providing and/or coordinating discharge services: Time spent: Greater than 30 minutes Exam Narrative: General: In no acute distress, well nourished Cardiac: Normal S1 and S2. No murmur, gallops or friction rubs, peripheral pulses intact. Respiratory: Lungs clear to auscultation, no adventitious lung sounds, currently on room air Gastrointestinal: soft, non-distended, non-tender, normoactive bowel sounds. : voiding without difficulty. Neuro: Alert and oriented x3 DS: Data Data Completed and Pending Completed studies during hospitalization: Head CT Head/neck CTA Jean MRI Lumbar puncture fluoroscopy Pending studies at discharge: 06/16/24 10:36 Cytology [PTH] Routine Serology labs Labs on day of discharge: Labs from last 24 hours 06/19/24 05:25 WBC 13.3 H RBC 3.61 L Hgb 11.4 L Hct 33.8 L MCV 93.6 MCH 31.6 MCHC 33.7 RDW 13.3 Plt Count 273 MPV 10.4 Sodium 137 Potassium 4.2 Chloride 102 Carbon Dioxide 27 Anion Gap 8 BUN 19 Creatinine 0.80 Estim Creat Clear
[2024-06-19 13:41] LABS: SARS-CoV-2 RNA PCR Negative (Negative)
[2024-06-19 14:14] LABS: CMV DNA Quant PCR IU/mL NOT DETECTED; Cytomegalovirus DNA Quant PCR NOT DETECTED Log IU/mL; Cytomegalovirus DNA Source BLOOD
--- NOTE | 2024-06-19 15:50 | WPDNEUROPN ---
Progress Note: A&P Assessment and Plan (1) Rash: Code(s): R21 - Rash and other nonspecific skin eruption Status: Acute (2) Seizure: Code(s): R56.9 - Unspecified convulsions Status: Acute (3) Dementia: Qualifiers: Dementia type: unspecified type Dementia severity: mild Dementia behavioral or psychological symptom: with mood disturbance Qualified Code(s): F03.A3 - Unspecified dementia, mild, with mood disturbance Code(s): F03.90 - Unspecified dementia, unspecified severity, without behavioral disturbance, psychotic disturbance, mood disturbance, and anxiety Status: Chronic Plan Since the rash is gone and patient has not had any growth in the CSF or blood cultures I suspect that he did not have any evidence for meningitis and we can discontinue antibiotics. The Lyme titer may take some time to come back and hence I shall leave this up to your discretion to keep him on doxycycline for a while. Thereafter the discussion took place regarding anticonvulsants. He had single spell. 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 The age and history of dementia I suggested initially that we should keep him on the medication at least for now until further determination. Thereafter he daughter called me and had a very lengthy arguments since he wants me to put on the record that the patient may have Parkinson disease. I told her that I did not see any evidence for that at least by the bedside examination. Of course a detailed examination including gait except try in the office may sometimes help elucidate that further but she is adamant that he has service related issues that may lead to Parkinson disease. Upon that I do advised that she should seek help from a tertiary care center. At this time however the we keep him on the anti seizure medications also a question. The daughter states that she got anti that he does not drink and based upon that if she wants to stop anticonvulsant I do not have any objection to that since the spell was was single spell described by a nurse in the emergency room. His MRI and EEG did not show any significant abnormalities. The daughter thought that I was being rude in not accepting Parkinson disease and some of the views that she has about it I was being rude and I told her will best her to seek help from another neurologist in view of this lack of agreement. I am afraid I may not be of much help in this situation. The patient should be followed up by primary care provider and can be sent or referred to a tertiary care center or another neurologist for opinion regarding Parkinson disease that her daughter is so much worried about. I also told her that that is definitely not an emergency issue and can be followed up in the clinic by any neurologist that she chooses to go to. Subjective Date/time seen: 06/19/24 15:50 Interval history: The patient is feeling fair and denies any headache nausea vomiting or photophobia. His the CSF and blood cultures are so far negative. His rash is all gone. Antibiotics and steroids and anticonvulsant medications were reviewed and discussed with the hospitalist in charge. Review of Systems Review of Systems: All systems reviewed & are unremarkable except as noted in HPI and below Exam Const: General: comfortable and no acute distress Eyes: General: appearance normal, both eyes and all related structures Neck: Neck: supple Resp: Effort & Inspection: normal respiratory effort Skin: General skin exam: normal color Neuro: Speech: normal speech Motor exam (neuro): 5/5 motor strength present throughout Other: No involuntary movements seen. Gait was not tested at this time. Objective Data Vital Signs Vital Signs: Vital Signs - 24 hr 06/18/24 17:26 06/18/24 19:42 06/18/24 20:00
[2024-06-19 18:19] LABS: West Nile Virus, IgM <0.90 index
[2024-06-20 10:08] LABS: Herpes Simplex Type 1 DNA PCR NOT DETECTED; Herpes Simplex Type 2 DNA PCR NOT DETECTED
[2024-06-21 03:18] LABS: Epstein Barr Virus DNA PCR NOT DETECTED; Source Epstein Barr Virus CEREBROSPINAL FLUID
[2024-06-21 17:59] LABS: Source CEREBROSPINAL FLUID
[2024-06-24 03:19] LABS: Varicella IgM Antibody 0.27
[2024-07-06 20:54] LABS: Cryptococcus Antigen NOT DETECTED; Cryptococcus Specimen Source CEREBROSPINAL FLUID
[2024-07-06 22:50] LABS: Lyme AB IgG, Immunoblot NO BANDS DETECTED; Lyme AB IgM, Immunoblot NO BANDS DETECTED
[2024-07-07 10:00] LABS: Cryptococcus Additional Testin Not Indicated
== END 2024-06-19 14:36 | DRG 101 ==
LOC: ANHED 17:59 → ANH3MED 21:04
PROVIDERS: Family Medicine; Nurse Practitioner Family; Psychiatry & Neurology Neurology; Admitting Provider Internal Medicine; Emergency Provider Emergency Medicine; Visit Provider Nurse Practitioner Acute Care
DX: R56.9 Unspecified convulsions (principal); E87.1 Hypo-osmolality and hyponatremia; E87.20 Acidosis, unspecified; R55 Syncope and collapse; D72.829 Elevated white blood cell count, unspecified; J44.9 Chronic obstructive pulmonary disease, unspecified; E78.5 Hyperlipidemia, unspecified; L29.9 Pruritus, unspecified; T78.40XA Allergy, unspecified, initial encounter; F03.90 Unspecified dementia, unspecified severity, without behavioral disturbance, psychotic disturbance, mood disturbance, and anxiety; F32.A Depression, unspecified; Z20.822 Contact with and (suspected) exposure to COVID-19; Z86.73 Personal history of transient ischemic attack (TIA), and cerebral infarction without residual deficits; Z87.891 Personal history of nicotine dependence; Z79.82 Long term (current) use of aspirin; Z11.52 Encounter for screening for COVID-19
CPT/HCPCS: 36415; 62328; 70450; 70496; 70498; 70553; 80048; 80053; 80202; 80307; 81003; 82945; 82948; 83605; 83735; 84157; 84484; 85025; 85027; 85610; 85730; 86403; 86617; 86787; 86788; 87040; 87070; 87102; 87205; 87206; 87497; 87529; 87635; 87637; 87798; 88108; 89051; 93005; 93306; 95816; 96361; 96365; 96372; 96375; 97161; 97165; 97530; 97535; 99285; A9270; A9577; G0378; J0696; J1100; J1200; J1650; J1953; J3370; J7030; Q9967

== ENCOUNTER 2025-03-26 08:14 | Emergency (ER) | payer MEDICARE, SELFPAY ==
--- NOTE | ~2025-03-26 | XR_ITS ---
Portable chest x-ray Comparison: None Clinical History: Weakness Findings: Lungs are clear, without focal consolidation or pleural effusion. Cardiomediastinal silho uette is unremarkable, status post prior cardiac surgery. Bones and soft tissues are unremarkable. Impression: Clear lungs. Reviewed, dictated and finalized at [facility]. Impression: Clear lungs.
--- NOTE | ~2025-03-26 | XR_ITS ---
AP view of the pelvis and AP and lateral views of the left hip Clinical history: Pain Findings: No acute fracture or dislocation is seen. Osseous alignment is anatomic. There is severe le ft hip joint osteoarthritis with joint space narrowing, sclerosis, and osteophyte formation. Right hi p joint intact. Soft tissues are unremarkable. Impression: Severe left hip joint osteoarthritis. Reviewed, dictated and finalized at location . Impression: Severe left hip joint osteoarthritis.
--- NOTE | ~2025-03-26 | CT_ITS ---
EXAMINATION: CT cervical spine wo con DATE: 03/26/2025 09:23 INDICATION: Fall from bed TECHNIQUE: Computed tomography (CT) of the cervical spine was performed without intravenous contrast. Automated exposure control and iterative reconstruction technique were employed. The dose-length pro duct was 541.97 mGy-cm. COMPARISON: None FINDINGS: Severe osteoarthritis at the atlantoaxial articulation with cystic change at the base of the dens and small amount surrounding calcified pannus. 10 degrees cervical dextrocurvature. 2 mm anterolisthesis C5 on C6. Vertebral body heights are normal. No acute fracture. There is severe disc height loss wit h developing ankylosis across peripheral endplate margins and left uncovertebral joint at C4-C5. Ther e is also fusion across the bilateral C4-C5 and C5-C6 facet joints. Additional severe disc height los s and degenerative endplate changes at C3-C4 and C6-C7. Moderate disc height loss at C7-T1 and T1-T2 and mild disc height loss at C2-C3 and C5-C6. Posterior disc osteophyte complexes resulting in mild c entral canal stenosis most prominent at C3-C4 and to lesser degree at C5-C6 and C6-C7. Mild hypertrop hic bridging posterior endplate osteophytes at C4-C5 also result in mild central canal stenosis at th is level. There is multilevel moderate to severe cervical facet and uncovertebral osteoarthritis. Thi s contributes to multilevel neural foraminal stenosis, severe on the left at C3-C4, moderate to sever e on the left at C4-C5, mild bilaterally at C2-C3 and on the left at C6-C7 and moderate severity at t he remaining cervical and bilateral upper thoracic neural foramina. Visualized apices of lungs are cl ear. Postoperative change of prior median sternotomy and surgical clips and the superior mediastinum consistent with prior coronary artery bypass grafting. Small collection of gas in the prevertebral so ft tissues Posterior to the cricoid suggesting a Zenker's diverticulum. Cervical soft tissues are otherwise unre markable. IMPRESSION: 1. Severe cervical spondylosis. No acute osseous abnormality. 2. Possible Zenker's diverticulum. Reviewed, dictated and finalized at location A.
[2025-03-26 08:16] VITALS: BP 137/78; PULSE 52; RESP 11; TEMP 36.5; O2SAT 93
--- NOTE | 2025-03-26 08:23 | ECG_ITS ---
Test Date: 2025-03-26 08:25:15 Measurements Intervals Benson Rate: 52 P: 33 TX: 165 QRS: 9 QRSD: 97 T: 85 QT: 443 QTc: 414 Interpretive Statements SINUS BRADYCARDIA LOW QRS VOLTAGE IN PRECORDIAL LEADS [QRS DEFLECTION < 1.0 mV IN CHEST LEADS] NONSPECIFIC ST & T-WAVE ABNORMALITY ABNORMAL ECG Electronically Signed On 03-27-2025 09:34:09 CDT by Mayo Galvez M.D.
--- OUTSIDE RECORDS SUMMARY | 2025-03-26 08:31 | XMS_ITS | Continuity of Care Document ---
Author Name [facility] Organization [facility] Care Team Providers Care Email Marketing Executive Name Role Phone [facility] Unavailable Unavailable Problems Combined list of problems from [facility] and [facility] facilities. It does not include entries that were removed or entered in error. 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 facilities. It does not include entries that were removed or entered in error. Substance Category Reaction Severity Reaction type Status Date Reported Comments Source ATORVASTATIN Propensity to adverse reactions to drug (finding) Muscle pain active 5 [facility] LIPITOR Propensity to adverse reactions to drug (finding) Cramp active 7 [facility] RAMIPRIL Propensity to adverse reactions to drug (finding) Swelling active 2 [facility] ZOCOR Propensity to adverse reactions to drug (finding) Cramp active 7 [facility] Immunizations Combined list of available immunizations from the Department of Defense and Veterans Affairs facilities. Immunization Series Date Given Administered By Site Reaction Lot Number CVX Code Drug Cdl A Driver Status Comments Source ZOSTER RECOMBINANT 2 2021 187 complet ed [facility] INFLUENZA, INJECTABLE, QUADRIVALENT, PRESERVATIVE FREE 2018 150 complet ed [facility] ZOSTER RECOMBINANT 1 2018 187 complet ed [facility] INFLUENZA, UNSPECIFIED FORMULATION 2017 88 complet [facility] N INFLUENZA, UNSPECIFIED FORMULATION 2016 88 complet [facility] INFLUENZA, SEASONAL, INJECTABLE, PRESERVATIVE FREE 2015 140 complet ed [facility] INFLUENZA, SEASONAL, INJECTABLE, PRESERVATIVE FREE 2015 140 complet ed [facility] PNEUMOCOCCAL CONJUGATE PCV 13 2014 133 complet ed [facility] TDAP 2014 115 complet ed Left Deltoid [facility] INFLUENZA, SEASONAL, INJECTABLE, PRESERVATIVE FREE 2013 140 complet ed [facility] INFLUENZA, UNSPECIFIED FORMULATION 2012 88 complet ed [facility] ZOSTER LIVE 2012 121 complet ed [facility] INFLUENZA, UNSPECIFIED FORMULATION 2011 88 complet ed [facility] INFLUENZA, UNSPECIFIED FORMULATION 2011 88 complet ed [facility] PNEUMOCOCCAL, UNSPECIFIED FORMULATION 2011 109 complet ed [facility] Results Combined list of recent chemistry, hematology and other laboratory results from Department of Defense and Veterans Affairs, ranging from 15 months to all on record, depending upon the facility. Order Name Results Value Reference Range Date Interpretation Specimen Comments Source PROST. SPECIFIC AG.(PB-ST L) PROSTATE SPECIFIC AG [MASS/VOL UME] IN SERUM OR PLASMA 4.369 ng/mL 0 - 4 01/19 [facility] Specimen Type: SERUM Comment: The listed sex of this patient may not be a typical indication for this test. Therefore, reference ranges or interpretive criteria listed may not be valid. Clinical correlation suggested. Ordering Provider: ELIEZER JACOME Report Released Date/Time: Jan 19, 2025 03:35 PM Reporting Lab: [facility] [address] [facility] [id number] Performing Lab: [facility] [address] [facility] [id number] [facility] Vital Signs Combined list of inpatient and outpatient Vital Signs from Department of Defense and Veterans Affairs, ranging from 12 months to all on record, depending upon the facility. Vital Sign Value Date Comments Source SYSTOLIC BLOOD PRESSURE 123 01/19/2025 14:32:15 [facility] DIASTOLIC BLOOD PRESSURE 72 01/19/2025 14:32:15 [facility] PULSE OXIMETRY 94 01/19/2025 14:32:15 [facility] WEIGHT 172.4 01/19/2025 14:32:15 [facility] BMI 28 kg/m2 01/19/2025 14:32:15 [facility] PAIN 0 01/19/2025 14:32:15 [facility] TEMPERATURE 97.6 01/19/2025 14:32:15 [facility] PULSE 59 01/19/2025 14:32:15 [facility] RESPIRATION 16 01/19/2025 14:32:15 [facility] SYSTOLIC BLOOD PRESSURE 115 12/15/2024 14:32:59 [facility] DIASTOLIC BLOOD PRESSURE 71 12/15/2024 14:32:59 [facility] PULSE OXIMETRY 95 12/15/2024 14:32:59 [facility] WEIGHT 173.5 12/15/2024 14:32:59 [facility] BMI 28 kg/m2 12/15/2024 14:32:59 [facility] PAIN 0 12/15/2024 14:32:59 [facility] TEMPERATURE 97.7 12/15/2024 14:32:59 [facility] PULSE 64 12/15/2024 14:32:59 [facility] RESPIRATION 18 12/15/2024 14:32:59 [facility] Encounters Combined list of: 1) Encounters from Department of [facility] Affairs facilities going backup to the last 18 months, not all [facility] inpatient encounters are included; 2) Encounters from the Department of [place] facilities going backup to 280 months. Location Location Details Encounter Type Encounter Number Reason For Visit Attending Provider ADM Date DC Date Status Disposition Source [facility] Outpatient Encounter [id number] 10/19 [facility] Outpatient Encounter [id number] 10/24 [facility] Outpatient Encounter [id number] TREV NEWSOME A 10/27 [facility] Outpatient Encounter [id number] 11/16 [facility] Outpatient Encounter [id number] 11/17 [facility] Outpatient Encounter [id number] TREV NEWSOME A 11/20 [facility] Outpatient Encounter [id number] Zenaida JACOME 12/11 [facility] N [facility] OFFICE O/P EST MOD 30 MIN [id number] Diagnos is: ICD-10- CM R41.3 Other amnesia Kevin MONTEIRO A 12/15 [facility] N [facility] PH1 ASSMT&MGMT NQHP 21-30 [id number] Diagnos is: ICD-10- CM Z71.0 Prsn encntr hlth serv to consult on behalf of another person RAHAT,TOM ASHTON 01/19 [facility] N [facility] OFFICE O/P EST LOW 20 MIN [id number] Diagnos is: ICD-10- CM I25.10 Athscl heart disease of tribal coronar y artery w/o ang pctrs BECCA RESTREPO A 01/19 [facility] OFF/OP CONSLTJ NEW/[place] HI 55 [id number] Diagnos is: ICD-10- CM G30.1 Alzheim er's disease with late onset Ana Paula BAHENA 02/12 [facility] N [facility] Outpatient Encounter [id number] 02/18 [facility] N [facility] Outpatient Encounter [id number] 02/20 [facility] N [facility] Outpatient Encounter [id number] 03/11 [facility] Social History Combined list of available smoking, tobacco, and other social history from Department of Defense and Veterans Affairs facilities. Social History Type Response Date Comment Sour e Tobacco smoking status NHIS VA-TOBACCO QUIT 15 YRS OR MORE 01/26/2022 [facility] History of tobacco use VA-TOBACCO FORMER USER 01/26/2022 [facility] History of tobacco use MS-TOBACCO QUIT 1 5 YRS OR MORE 02/05/2020 [facility] History of tobacco use MS-TOBACCO NEVER USED 07/11/2018 [facility] History of tobacco use QUIT TOBACCO >7 Y EARS AGO 04/26/2016 [facility] History of tobacco use QUIT TOBACCO >7 Y EARS AGO 04/28/2015 [facility] History of tobacco use QUIT TOBACCO >7 Y EARS AGO 07/22/2014 [facility] History of tobacco use QUIT TOBACCO >7 Y EARS AGO 05/07/2013 [facility] History of tobacco use QUIT TOBACCO >7 Y EARS AGO 02/14/2007 [facility] Plan of Care List of future care activities from [facility] facilities. Additional future care activities may be listed in the Assessment and Plan section. Date/Time Care Activity Care Activity Detail Facili ty 05/06/2025 AMBULATORY - MEDICINE AMBULATORY - MEDICI NE [facility] Advance Directives List of completed, amended, or rescinded Advance Directives on record at [facility] facilities. An actual copy of the Directive is not included. Date Advance Directive Provider Source 02/18/2025 [facility]
--- OUTSIDE RECORDS SUMMARY | 2025-03-26 08:31 | XMS_ITS | Encounter Summary ---
Author Name [facility] [place] Organization [place] Address [address] [facility] [place] [address] Support Name Relationship Address Phone JALEESA PEREZ Next of Kin [address] [place], [place] [id number] LINOJESIKA Gtz Emergency Contact [phone] , [place] [phone] JENNIFER UGARTE Next of Kin Unknown Insurance Providers: All historical and current Section Date Range: From patient's date of to the date document was created. This section includes the names of all active insurance providers for the patient. Insurance Provider Type of Coverage Plan Name Start of Policy Coverage End of Policy Coverage Group Number Member ID Insurance Provider's Telephone Number Policy Cooper's Name Patient's Relationship to Policy Cooper AETNA [facility] (WNR) MEDICARE ADVANTAGE [facility] (WNR) Nov 12, 2019 [id number] [id number] Devang RODRIGUEZ PATIENT Selected Encounter This section includes the information on record at [place] for the Encounter. Date/Time Encounter Type Encounter Description Reason Provider Source Feb 12, 2025 10:00 AM OFF/OP CONSLTJ NEW/EST HI 55 NEUROLOGY ICD-10-CM G30.1 Alzheimer's disease with late onset TWYLA BAHENA Encounter Template Text not used by [place] Assessments - Encounter Diagnoses This section includes the primary and secondary diagnoses documented for the Encounter. Date/Time Primary/Secondary Diagnosis Diagnosis Name Provider Source Feb 12, 2025 01:10 PM PRIMARY Alzheimer's disease with late onset TWYLA BAHENA [facility] Feb 12, 2025 01:10 PM SECONDARY Parkinsonism, unspecified TWYLA BAHENA [facility] Plan of Treatment: Future Appointments (+ 6 months) and Future Tests (+/- 45 days) The Plan of Treatment section includes future care activities for the patient from all [place] [facility] This section includes future appointments and future orders which are active, pending or scheduled. Future Appointments This section includes appointments that were scheduled to occur 6 months from the date of the Encounter, up to a maximum of 20 appointments. The data comes from all [facility]. Appointment Date/Time Appointment Type Appointme nt Facility Name Mar 11, 2025 12:30 PM AMBULATORY - NONE [facility] May 06, 2025 10:00 AM AMBULATORY - MEDICINE [facility] Active, Pending, and Scheduled Orders This section includes a listing of several types of active, pending, and scheduled orders, including clinic medications orders, diagnostic test orders, procedure orders and consult orders; where the start date of the order is 45 days before the date of the Encounter or 45 days after the date of theEncounter. The data comes from all [facility]. Test Date/Time Test Type Test Details Facility Name Feb 12, 2025 12:00 AM Laboratory - Chemi stry Order B12 GOLD/RED SST SERUM [facility] Feb 12, 2025 12:00 AM Laboratory - Chemi stry Order FOLATE (STL-MA) GOLD/RED SST [facility] Feb 12, 2025 12:00 AM Laboratory - Chemi stry Order HGA1C BLOOD [facility] Feb 12, 2025 12:00 AM Laboratory - Chemi stry Order TSH (MA-PB) GOLD/RED SST [facility] Lab Results: +/- 30 days of the encounter This section includes the Chemistry and Hematology Lab Results on record with [place] for the patient. Radiology Reports and Pathology Reports are provided separately, in subsequent sections. Lab Results This section contains the Chemistry/Hematology Results that were resulted 30 days before or 30 daysafter the date of the Encounter. Date/Time Source Result Type Result - Unit Interpretation Reference Range Specimen Type Comment Jan 19, 2025 03:45 PM [facility] PROST. SPECIFIC AG.(PB-STL) SERUM Specimen Ty pe: SERUM Comment: The listed sex of this patient may not be a typical indication for this test. Therefore, reference ranges or interpretive criteria listed may not be valid. Clinical correlation suggested. Ordering Provider: ZARI JACOME Report Released Date/Time: Jan 19, 2025 03:35 PM Reporting Lab: [facility] [address] [facility] [id number] Performing Lab: [facility] [address] [facility] [id number] PROST. SPECIFIC AG.(PB-STL) 4.369 ng/mL HH 0-4 Social History: Smoking Status (Most current) and Tobacco Use (All prior to encounter date) This section includes the most current, and the historical, smoking and tobacco- related health factors from the [place] facility where the Encounter took place. Current Smoking Status This section includes the most current smoking, or tobacco-related health factor, from the [place] facility where the Encounter took place. Date/Time Current Smoking Status Comment Alex joe Jan 26, 2022 03:15 PM [place]-TOBACCO QUIT 15 YRS OR MORE [facility] Tobacco Use History This section includes a history of the smoking, or tobacco-related health factors, that were collected on or before the date of the Encounter. The data comes from the [place] facility where the Encounter took place. Date/Time Smoking Status/Tobacco Use Comment F acchago Jan 26, 2022 03:15 PM VA-TOBACCO QUIT 15 YRS OR MORE [facility] Feb 05, 2020 12:27 PM VA-TOBACCO FORMER USER [facility] Feb 05, 2020 12:27 PM VA-TOBACCO QUIT 15 YRS OR MORE [facility] Jul 11, 2018 09:27 AM VA-TOBACCO NEVER USED [facility] Apr 26, 2016 12:48 PM QUIT TOBACCO >7 YEARS AGO [facility] Apr 28, 2015 01:17 PM QUIT TOBACCO >7 YEARS AGO [facility] Jul 22, 2014 01:15 PM QUIT TOBACCO >7 YEARS AGO [facility] May 07, 2013 01:37 PM QUIT TOBACCO >7 YEARS AGO [facility] Feb 14, 2007 09:05 AM QUIT TOBACCO >7 YEARS AGO [facility] Advance Directives: All historical and current Section Date Range: From patient's date of to the date document was created. This section includes ALL of a patient's completed or amended [place] Advance and Rescinded Directives. The entries below indicate that a directive exists for the patient, but an actual copy is not included with this document. The data comes from all [place] facilities. Date Advance Directives Provider Source Feb 18, 2025 ADVANCE DIRECTIVE GOYO GIANG [facility] Radiology Reports: +/- 30 days of the encounter Radiology Reports For cases when an order for radiology services may have been completed prior to the date of the Encounter, the report list includes the Radiology Reports that were completed up to 30 days before dateof the Encounter. For cases when an order for radiology services may have been completed after the date of the Encounter, the report list also includes the Radiology Reports that were completed up to30 days after date of the Encounter. The data comes from all [place] treatment facilities. Date/Time Radiology Report Provider Source Mar 11, 2025 11:57 AM MRI BRAIN W/O CONT : SUZANNE RODRIGUEZ Ilana [id number] -[id number] M Exm Date: MAR 11, 2025@11:57 Req Phys: WICHO LANGE Loc: [facility] A (Req'g Img Loc: [facility] Service: [address] [address] (Case [id number] COMPLETE) MRI BRAIN W/O CONT (MRI Detailed) CPT:77082 Reason for Study: dementia Clinical History: Responsible Attending: Romero Attending Contact Number: n/a Resident Contact Number: [phone] Does your patient have an implanted device or hardware? (Any prosthesis, implant, shrapnel or bullet fragments) No Does your patient have any of the following (Please check all that apply) [ ] Pacemaker [ ] AICD [ ] Neuro-stimulator [ ] Bone Growth Stimulator [ ] Pain Pump [ ] Insulin Pump [ ] Cochlear Implant [ ] Ocular Implant [ ] Aneurysm Clip [ ] Vascular Clip Any other type of implant, please explain Does your patient have a Coronary Stent: No Does your patient have a an artificial Heart Valve: No Were any of the following intravascular implanted devices inserted less than 6 weeks ago: Stent No IVC Filter No Embolization Coils No Is your patient's weight >350lbs or abdominal and shoulder width >60cm? No Does your patient have Renal Failure, Chronic or Acute Renal Disease? No If ordering a contrasted enhanced MRI, you will be required to complete the order for creatine eGFR which is located at the bottom of the MRI ordering screen. If your patient is 60 years or older, the patient will need a recent eGFR within 30 days prior to the exam. NOTE: Incorrectly answering these questions may result in a delay in the procedure. A patient with a device or implant does not automatically mean the patient cannot receive an MRI. If your patient will have difficulty with a confined space, the provider will be responsible for ordering a sedation prior to the procedure, or to order an alternative procedure. In the event this patient needs referred to Community Care: Does this patient have mobility issues that will require additional assistance at the imaging center? No If yes, please provide specifics: Does this patient require an open bore MRI due to claustrophobia? No Has a close bore MRI with oral sedation been tried? No This order requests: Without Contrast Report Status: Verified Date Reported: MAR 11, 2025 Date Verified: MAR 11, 2025 Ice House Supervisor E-Sig:/ES/GINI OSWALD MD Report: Multiplanar, multisequence images of the brain were performed without gadolinium Comparison: none Findings: No space-occupying lesion, midline shift, or other mass-effect is present. No intracranial hemorrhage or extra-axial fluid collection is present. The ventricles and pattern of cortical sulci and gyri are prominent consistent with central and cortical atrophy. More prominent atrophy of the temporal lobes is noted Areas of increased T2 and FLAIR signal intensity are present in the periventricular white matter tracts bilaterally. Statistically, this is most frequently seen in small vessel disease, and the pattern of distribution is most typical of that condition. While other demyelinating disorders, including multiple sclerosis may demonstrate areas of increased T2 and FLAIR signal in the white matter, the distribution pattern is usually different. No cortical infarcts. Impression: Generalized atrophy with the temporal lobes most affected Primary Interpreting Staff: GINI OSWALD MD, Radiologist (Ice House Supervisor) /GINI MARTINEZ [facility] Encounter Notes: All associated encounter notes This section contains the clinical notes associated to the Encounter. Date/Time Encounter Note(s) Provider Source Feb 12, 2025 09:57 AM NEUROLOGY CONSULT: LOCAL TITLE: NEUROLOGY OUTPATIENT CONSULT ST STANDARD TITLE: NEUROLOGY CONSULT DATE OF NOTE: FEB 12, 2025@09:57 ENTRY DATE: FEB 12, 2025@09:58:13 AUTHOR: WICHO LANGE COSIGNER: TWYLA BAHENA URGENCY: STATUS: COMPLETED NEUROLOGY OUTPATIENT CONSULT ST Has ADDENDA Neurology Consult Follow up Note Date of Visit: 02/12/25 10:00 Mr. Rodriguez is a 79 YO M who presents for concern for potential dementia, particularly a concern for parkinson's. He comes in with his daughter who is POA. Over the last few years he has been more forgetful and has been falling more frequently. Furthermore, he has gotten delirium while hospitalized for infection which left his daugher concerned. He subsequently was diagnosed in 2023 with epilepsy and was started on keppra 750mg BID as well as divalproex 250mg TID. Concerns for dementia include: - difficulty sleeping for years with dream enactment behavior and sleep walking - many years of constipation, on metameusel - difficulty reading and loss of interest in things that used to interest him - frequent dizziness - smaller handwriting compared to previous - poor balance and coordination which often improves with PT but gets worse again when he stops - frequent stiff muscles - shuffling feet when walking - loss of ability to manage own iADLs such as paying bills and cleaning the house His daughter also mentions that he has been told that he has a history of stroke as seen on previous MRI, but she does not have the record of this and we cannot see it in [facility]S. PAST MEDICAL HISTORY: 1) Coronary artery disease (SNOMED CT 30428665) 2) Hyperlipidemia (SNOMED CT 05389076) 3) Allergic Rhinitis 4) Coronary Artery Bypass * (ICD-9-CM V45.81) 5) Hypertension (SNOMED CT 70959527) REVIEW OF SYSTEMS: CONSTITUTIONAL: No fever. No chills. No dizziness. No weakness. EYES: No pain, erythema, or discharge. No blurring of vision. ENT: No sore throat, URI symptoms. No epistaxis. No tinnitus. CARDIOVASCULAR: No chest pain. No palpitations. No lower extremity edema. RESPIRATORY: No shortness of breath, cough, pain with respiration, pleuritic chest pain. No hemoptysis. No dyspnea. No paroxysmal nocturnal dyspnea. GASTROINTESTINAL: Normal appetite. No nausea, vomiting, diarrhea. No pain. No bloating. No melena. GENITOURINARY: No frequency, urgency, nocturia. No hematuria or dysuria. MUSCULOSKELETAL: No arthralgias or myalgias. INTEGUMENTARY: No swelling. No bruising. No contusions. No abrasions. No lymphangitis. NEUROLOGIC: No headache. No neck pain. No numbness or tingling of the extremities. No weakness. PSYCHIATRIC: No confusion. ENDOCRINE: No fatigue. No weakness. No history of thyroid, diabetes or adrenal problems. HEMATOLOGICAL: No bleeding. No petechiae. No bruising. PHYSICAL EXAM: Temperature: 97.6 F [36.4 C] (01/19/2025 14:32) Blood Pressure: 123/72 (01/19/2025 14:32) Pulse: 59 (01/19/2025 14:32) Respirations: 16 (01/19/2025 14:32) Height: 66 in [167.6 cm] (08/07/2019 14:58) Weight: 172.4 lb [78.20 kg] (01/19/2025 14:32) Gen: NAD, appropriate affect, normal built Resp: Normal effort, lungs CTA bilaterally CV: S1 S2 normal, RRR, no murmurs, no carotid bruit Abdo: Soft, NT/ND, +bowel sounds Neurologic: - 79 YO M sitting in clinic, often allows daughter to speak for him but will answer questions when asked - CN's grossly intact - strength 5/5 in all extremities proximally and distally - sensation normal to light touch in all extremities - reflexes 2+ in bilateral brachioradialis, bicep, and patellar - positive palmomental reflex Movement exam: - small amplitude, slow resting tremor which is not seen as strongly with hands outstretched and with FNF. Tremor is predominantly seen as repeated thumb adduction - finger taps are equally bilaterally small and slow - toe taps are slow and uncoordinated on the R and only a minor shuffling without lifting the foot on the left - gait shows bradykinesia of the left arm and leg with shuffling gait, worse on the left - small tremor and uncoordinated movement seen while drawing archimede's spiral - no rigidity noted but with small amount of bilateral spasticity Mental status exam: - performed SLUMS exam. Patient has high school degree as highest education. Got a total of 14 points. ALLERGIES: LIPITOR, ZOCOR, RAMIPRIL, ATORVASTATIN IMPRESSION: Mr. Rodriguez is a 79 YO M who presents as a new evaluation for dementia and concern for parkinson's disease. His SLUMS exam and his history are consistent with dementia, as such he can be diagnosed with dementia as per this visit. This is also further supported by positive palmomental frontal release sign on exam. Will order labs for reversible causes of dementia. He already had a referral to neuropsychological testing before this visit, though, so will keep that referral for more detailed testing. Furthermore, he has some features of depression and the neuropsych testing can help distinguish one from the other. As for movement, his history of dream enactment behavior, constipation, more frequent falls, tremor that is predominantly at rest, and unilateral bradykinesia coupled with shuffling gait are all supportive of a diagnosis of parkinson's disease or parkinsonism. However, there is a confound of concern for previous stroke for which it is unclear if he has structural lesion affecting his gait and his exam lacks cogwheel rigidity, instead finding some spasticity. For these he warrants a new MRI. PLAN/RECS: - reversible causes of dementia labs: TSH, B12, folate, A1c - follow up with neuropsychological testing - MRI brain without contrast to evaluate for stroke and for generalized dementia related atrophy - RTC in 3 months to evaluate results of above tests Discussed and examined patient with attending physician: Dr. Bahena /kimmy/ Wicho Lange M.D. resident physician Signed: 02/12/2025 12:53 /kimmy/ TWYLA BAHENA MD NEUROLOGY STAFF PHYSICIAN Cosigned: 02/12/2025 13:10 02/12/2025 ADDENDUM STATUS: COMPLETED Patient seen and examined with resident physician Dr. Lange. Case discussed and chart reviewed. I agree with the assessment and recommendations as noted. Summary: Briefly, patient is a 79 y.o. gentleman referred for evaluation of possible Parkinson's. His history and findings showed dementia and soft parkinsonism Treatment plan: As outlined by Dr. Lange Follow-up care: 3 months Patient to go to ER if new symptoms develop. Patient call if any questions arise or if patient experiences side effects to any prescribed medication. Totalt time spent: 60 min /es/ TWYLA BAHENA MD NEUROLOGY STAFF PHYSICIAN Signed: 02/12/2025 13:14 [facility]
--- OUTSIDE RECORDS SUMMARY | 2025-03-26 08:31 | XMS_ITS | Encounter Summary ---
Author Name [place] Address [address] [place] [address] Support Name Relationship Address Phone JALEESA PEREZ Next of Kin [address] [place] [address] JESIKA HUYNH Emergency Contact [phone] , [place] [phone] DAYJENNIFER Next of Kin Unknown Insurance Providers: All [...] Name Patient's Relationship to Policy Cooper AETNA [facility] (WNR) MEDICARE ADVANTAGE [facility] (WNR) Nov 12, 2019 [id number] [phone] [employer] PATIENT Selected Encounter This section includes the information on record at [place] for the Encounter. Date/Time Encounter Type Encounter Description Reason Pro vider Source Feb 20, 2025 08:01 AM Outpatient Encounter [facility] Encounter Template Text not used by [place] Plan of Treatment: Future Appointments (+ 6 months) and Future Tests (+/- 45 days) The Plan of Treatment section includes future care activities for the patient from all [place] treatmentfacilities. This section includes future appointments and future orders which are active, pending or scheduled. Future Appointments This section includes appointments that were scheduled to occur 6 months from the date of the Encounter, up to a maximum of 20 appointments. The data comes from all [place] treatment facilities. Appointment Date/Time Appointment Type Appointme nt Facility Name Mar 11, 2025 12:30 PM AMBULATORY - NONE [facility] May 06, 2025 10:00 AM AMBULATORY - MEDICINE [facility] Active, Pending, and Scheduled Orders This section includes a listing of several types of active, pending, and scheduled orders, including clinic medications orders, diagnostic test orders, procedure orders and consult orders; where the start date of the order is 45 days before the date of the Encounter or 45 days after the date of theEncounter. The data comes from all [place] treatment facilities. Test Date/Time Test Type Test Details Facility Name Feb 12, 2025 12:00 AM Laboratory - Chemi stry Order B12 GOLD/RED SST [facility] Feb 12, 2025 12:00 AM Laboratory - Chemi stry Order FOLATE (STL-MA) GOLD/RED SST [facility] Feb 12, 2025 12:00 AM Laboratory - Chemi stry Order HGA1C BLOOD [facility] Feb 12, 2025 12:00 AM Laboratory - Chemi stry Order TSH (MA-PB) GOLD/RED SST [facility] Mar 11, 2025 12:39 PM Imaging - Magnetic Resonance Imaging (MRI) Order MRI BRAIN W/O CONT [facility] Social History: Smoking Status (Most current) and Tobacco Use (All prior to encounter date) This section includes the most current, and the historical, smoking and tobacco- related health factors from the [place] facility where the Encounter took place. Current Smoking Status This section includes the most current smoking, or tobacco-related health factor, from the [place] facility where the Encounter took place. Date/Time Current Smoking Status Comment Facil ity Jan 26, 2022 03:15 PM [place]-TO[place]AC[place] QUIT 15 YRS OR MORE [facility] Tobacco Use History This section includes a history of the smoking, or tobacco-related health factors, that were collected on or before the date of the Encounter. The data comes from the [place] facility where the Encounter took place. Date/Time Smoking Status/Tobacco Use Comment F acility Jan 26, 2022 03:15 PM [place]-TO[place]ACCO QUIT 15 YRS OR MORE [facility] Feb 05, 2020 12:27 PM VA-TOBACCO FORMER USER [facility] Feb 05, 2020 12:27 PM VA-TOBACCO QUIT 15 YRS OR MORE [facility] Jul 11, 2018 09:27 AM VA-TOBACCO NEVER USED [facility] Apr 26, 2016 12:48 PM QUIT TOBACCO >7 YEARS AGO [facility] Apr 28, 2015 01:17 PM QUIT TOBACCO >7 YEARS AGO [facility] Jul 22, 2014 01:15 PM QUIT TOBACCO >7 YEARS AGO [facility] May 07, 2013 01:37 PM QUIT TOBACCO >7 YEARS AGO [facility] Feb 14, 2007 09:05 AM QUIT TOBACCO >7 YEARS AGO [facility] Advance Directives: All historical and current Section Date Range: From patient's date of to the date document was created. This section includes ALL of a patient's completed or amended [place] Advance and Rescinded Directives. The entries below indicate that a directive exists for the patient, but an actual copy is not included with this document. The data comes from all [place] facilities. Date Advance Directives Provider Source Feb 18, 2025 ADVANCE DIRECTIVE RAHATGOYO Hector [facility] Encounter Notes: All associated encounter notes This section contains the clinical notes associated to the Encounter. Date/Time Encounter Note(s) Provider Source Feb 12, 2025 08:01 AM SCANNED NOTE: LOCAL TITLE: SCANNED [place] MEDICAL RECORD ST STANDARD TITLE: SCANNED NOTE DATE OF NOTE: FEB 12, 2025@08:01 ENTRY DATE: FEB 20, 2025@08:02:01 AUTHOR: STEPHANY SHEIKH EXP COSIGNER: URGENCY: STATUS: COMPLETED Attached to this note is a scanned copy of [place] medical record consisting of the following document(s): Progress Note DOS: 02/12/25 UMS EXAMINATION To view the scanned document: 1) You must be logged into [facility] 2) Click on Toolbar 3) Sign on to [facility] /es/ STEPHANY SHEIKH Registered Nurse Signed: 02/20/2025 08:05 STEPHANY SHEIKH [facility]
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
--- OUTSIDE RECORDS SUMMARY | 2025-03-26 08:31 | XMS_ITS | Encounter Summary ---
Author Name [facility] [place] Organization [facility] [place] Address [address], [place] [address] Support Name Relationship Address Phone JALEESA PEREZ Next of Kin [address] [place], [place] [id number] LINOJESIKA Emergency Contact [phone] , [...] Name Patient's Relationship to Policy Cooper [employer] [facility] (WNR) MEDICARE ADVANTAGE [facility] (WNR) Nov 12, 2019 [id number] Devang RODRIGUEZ PATIENT Selected Encounter This section includes the information on record at [place] for the Encounter. Date/Time Encounter Type Encounter Description Reason Provider Source Dec 15, 2024 02:20 PM OFFICE O/P EST MOD 30 MIN PRIMARY CARE/MEDICINE ICD-10-CM R41.3 Other amnesia REGGIE RODRIGUES Richard Encounter Template Text not used by [place] Assessments - Encounter Diagnoses This section includes the primary and secondary diagnoses documented for the Encounter. Date/Time Primary/Secondary Diagnosis Diagnosis Name Provider Source Jan 05, 2025 12:53 PM PRIMARY Other amnesia REGGIE RODRIGUES [facility] Plan of Treatment: Future Appointments (+ 6 months) and Future Tests (+/- 45 days) The Plan of Treatment section includes future care activities for the patient from [facility] This section includes future appointments and future orders which are active, pending or scheduled. Future Appointments This section includes appointments that were scheduled to occur 6 months from the date of the Encounter, up to a maximum of 20 appointments. The data comes from all NE treatment [facility]. Appointment Date/Time Appointment Type Appointme nt Facility Name Jan 19, 2025 02:15 PM AMBULATORY - MEDICINE [facility] Feb 12, 2025 10:00 AM AMBULATORY - MEDICINE [facility] Mar 11, 2025 12:30 PM AMBULATORY - NONE [facility] May 06, 2025 10:00 AM AMBULATORY - MEDICINE [facility] Vital Signs: All taken on the encounter date This section contains inpatient and outpatient Vital Signs collected on the date of the Encounter. Date/Time Temperature Pulse Blood Pressure Respiratory Rate SP02 Pain Height Weight Body Mass Index Source Dec 15, 2024 02:32 PM 97.7 64 115/71 18 95 0 173.5 28 [facility] Social History: Smoking Status (Most current) and Tobacco Use (All prior to encounter date) This section includes the most current, and the historical, smoking and tobacco- related health factors from the NE facility where the Encounter took place. Current Smoking Status This section includes the most current smoking, or tobacco-related health factor, from the NE facility where the Encounter took place. Date/Time Current Smoking Status Comment Alex ity Jan 26, 2022 03:15 PM VA-TOBACCO QUIT 15 YRS OR MORE [facility] Tobacco Use History This section includes a history of the smoking, or tobacco-related health factors, that were collected on or before the date of the Encounter. The data comes from the NE facility where the Encounter took place. Date/Time Smoking Status/Tobacco Use Comment F acility Jan 26, 2022 03:15 PM VA-TOBACCO QUIT 15 YRS OR MORE [facility] Feb 05, 2020 12:27 PM VA-TOBACCO FORMER USER [facility] Feb 05, 2020 12:27 PM VA-TOBACCO QUIT 15 YRS OR MORE [facility] Jul 11, 2018 09:27 AM VA-TOBACCO NEVER USED [facility] Apr 26, 2016 12:48 PM QUIT TOBACCO >7 YEARS AGO [facility] Apr 28, 2015 01:17 PM QUIT TOBACCO >7 YEARS AGO [facility] Jul 22, 2014 01:15 PM QUIT TOBACCO >7 YEARS AGO [facility] May 07, 2013 01:37 PM QUIT TOBACCO >7 YEARS AGO [facility] Feb 14, 2007 09:05 AM QUIT TOBACCO >7 YEARS AGO [facility] Advance Directives: All historical and current Section Date Range: From patient's date of to the date document was created. This section includes ALL of a patient's completed or amended [place] Advance and Rescinded Directives. The entries below indicate that a directive exists for the patient, but an actual copy is not included with this document. The data comes from all [place] facilities. Date Advance Directives Provider Source Feb 18, 2025 ADVANCE DIRECTIVE [address] [facility] Encounter Notes: All associated encounter notes This section contains the clinical notes associated to the Encounter. Date/Time Encounter Note(s) Provider Source Dec 15, 2024 04:02 PM PRIMARY CARE NOTE: LOCAL TITLE: PRIMARY CARE PROVIDER ESTABLISHED VISIT [facility] STANDARD TITLE: PRIMARY CARE NOTE DATE OF NOTE: DEC 15, 2024@16:02 ENTRY DATE: DEC 15, 2024@16:04:08 AUTHOR: RANCHO JOHNSON EXP COSIGNER: REGGIE RODRIGUES URGENCY: STATUS: COMPLETED PRIMARY CARE PROVIDER ESTABLISHED VISIT [facility] Has [facility] WALK[facility] NOTE DATE: 12/15/2024 HPI: Patient is a 79 year old male with a PMHx of HLD, CAD, and HTN, who presents to walk-in clinic with his daughter for evaluation for Parkinson's disease prior to neurology consult as well as 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 Per daughter, patient currently lives in an assisted living facility [place] living conditions. He currently requires assistance with doing his own laundry, and taking his medications. He can dress and bathe himself and is capable of getting out of bed on his own. However, he is sometimes confused in the morning, but this improves throughout the day. She believes that he also has Parkinson's disease since he occasionally has a tremor when reaching for objects and his movements are slower and more abrupt when he takes breaks from attending physical therapy. Daughter requests neurology referral in order to file a claim related to patient's service at [facility]. Per patient, his left hip pain and knee pain have improved since his fall in Jul 2022. MEDICAL HISTORY: 1. Hypertension 2. Coronary artery disease 3. Hyperlipidemia 4. Hx of stroke ACTIVE OUTPATIENT MEDS: 1. Rosuvastatin 10 mg PO twice daily 2. Fluoxetine 20 mg PO once daily 3. Memantine 5 mg PO once daily 4. Levetiracetam 750 mg PO twice daily 5. Oxybutynin 2.5 mg PO twice daily 6. Divalproex 250 mg PO three times a day REVIEW OF SYSTEMS: Negative except where noted above in HPI. Vital Signs: Pulse: 64 bpm BP: 115/71 RESP: 18 respirations per minute Pain: 0 Weight: 173.5 lb PHYSICAL EXAM: General: cooperative, well appearing, no acute distress HEENT: atraumatic, symmetric, sclera anicteric, no pharyngeal erythema/exudate Neck: no JVD, no LAD CV: RRR, normal S1/S2, no murmurs Lungs: CTAB, no rales Abd: nontender, nondistended, normal bowel sounds Skin: no rashes or lesions, warm, dry Neuro: follows commands, no focal deficits, CN II-XII grossly intact, no broad- based shuffling gait, unsteady heel-to-toe gait, fine tremor when hands are extended MSK: Pcat Instructor strength: 5 Shoulder abduction: 5 Arm flexion: 5 Arm extension: 5 Hip flexion: 4 Knee extension: 5 Knee flexion: 4 LAB DATA: No relevant lab data. 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 Given the lack of a tremor at rest, gait abnormalities, and cogwheel rigidity, we explained that Parkinson's disease is likely not the underlying cause of the patient's cognitive symptoms. We discussed the many number of causes of cognitive dysfunction and decline other than Parkinson's disease, including the history of stroke or other idiopathic causes. 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 Rodrigues. Darion Johnson, MS4 /es/ DARION JOHNSON Medical Student Primary Care [facility] Signed: 12/16/2024 08:15 /es/ REGGIE RODRIGUES MD Staff Physician Cosigned: 12/17/2024 08:39 12/17/2024 ADDENDUM STATUS: COMPLETED Chief Complaint: Neurology referral, completion of form for regular aid and attendance History of Present Illness: Mr. Suzanne Rodriguez is a 79 year old MALE with PMH of CAD, HTN, HLD, and left hip osteoarthritis who presents to [facility] with daughter for the following: - Neurology referral to evaluate for Parkinson's - Complete of Aid and Attendance form Pt originally scheduled to see PCP today, however, this appt was cancelled by the clinic unbeknowst to the Pt or daughter. Pt lives 4 hours away, thus was placed int the Same Day Clinc. Daughter states that Pt was exposed to the contaminated water in [place] they are working on filiming claims for disability through the [facility] and looking for Neurology referral for evaluation for Parkinson's. When asked what makes her think the Pt has Parkinson's she notes memory issues (reportedly diagnosed with dementia) and tremor. Daughter states that he was admitted to [facility] in 07/2024 for delirium, rash, and a seizure. Etiology of this is unknown but daughter states that a CT of his brain did show evidence of a stroke in the past. Daughter states that Pt was previously living by himself but was not taking care of himself or cleaing very well, thus he is currently living in an assisted living facility. Daughter requesting completion of Aid and Attendance form so that it could be used to help cover the costs of the assisted living. Pt walking unassisted in clinic today but has a wheeled walker that he uses due to hip pain and pain in other joints. Pt can perform all ADLs but daughter notes the he needs assistance with housekeeping, laundry, and medication management. Past Medical History: 1) Coronary artery disease (SNOMED CT 94426965) 2) Hyperlipidemia (SNOMED CT 18452655) 3) Allergic Rhinitis 4) Coronary Artery Bypass * (ICD-9-CM V45.81) 5) Hypertension (SNOMED CT 86938098) Medications: Active and Recently Outpatient Medications (including Supplies): No Medications Found Allergies: LIPITOR, ZOCOR, RAMIPRIL, ATORVASTATIN Family Medical History: Denies [facility] of Park[facility]'s Physical Exam: Today's Vitals: BP: P: R: WT: T: HT: Gen: Pt is a 79 year old MALE in no acute distress. Pt is well appearing and oriented to person, place, time, and situation. Skin: No skin scars, rashes, or bruises noted Heart: RRR, normal S1 and, S2. No murmur, rub, click, or gallop Lungs: CTAB, no crackles, wheezing, or rhonchi Abd: Soft, nontender, nondistended, no organomegaly, normal bowel sounds Ext: 5/5 strength of BUEs. 4/5 strength with hip flexion and extension at knee bilaterally. ROM of BUE and BLE intact. Neurology: No cogwheel rigidity of extremities. Normal gait slightly slower with mild instability, no shuffling. Unstable gait with heel-to-toe. Mild intention tremor of BUEs. No tremor at rest Assessment / Plan: #Memory issues Daughter reports Pt diagnosed with dementia. No available records Daughter interested in filing claim for Parkinson's given Pt's exposure to contaminated water in [place] - Neurology referral for evaluation of Parkinson's #Intention tremor - Neurology referral /es/ REGGIE RODRIGUES MD Staff Physician Signed: 01/05/2025 12:53 RANCHO JOHNSON [facility] Dec 15, 2024 02:33 PM NURSING NOTE: LOCAL TITLE: V15 PACT FACE TO FACE NOTE [facility] STANDARD TITLE: NURSING NOTE DATE OF NOTE: DEC 15, 2024@14:33 ENTRY DATE: DEC 15, 2024@14:33:43 AUTHOR: TAMMY EMERSON COSIGNER: URGENCY: STATUS: COMPLETED Provider Visit: Patient Identifiers : Full Name Date of Reason for visit: Other: Neurology consult, disability and aid and attendance paper filled out. [place] need and [employer] filled out. Will like an evaluation for Parkinson Mode of Arrival: Ambulatory Allergy Review: LIPITOR, ZOCOR, RAMIPRIL, ATORVASTATIN Allergy list reviewed and remains current. Recent Vital Signs: Temperature: 97.7 F [36.5 C] (12/15/2024 14:32) Pulse: 64 (12/15/2024 14:32) Respiration: 18 (12/15/2024 14:32) B/P: 115/71 (12/15/2024 14:32) Pain: 0 (12/15/2024 14:32) Wt: 173.5 lb [78.70 kg] (12/15/2024 14:32) Ht: 66 in [167.6 cm] (08/07/2019 14:58) BMI: 28.1 POX: 95% (12/15/2024 14:32) PERSONAL HEALTH INVENTORY Notes: No data available for PHI note titles PERSONAL HEALTH INVENTORY - MAP: No data available for PHI MAP What matters most to you in your life right now? --- 's Response: being with friends Would you like to discuss any personal problem, family problem, alcohol use, drug use, or a mental or emotional illness? No My [facility] ([facility]), please select appointment type: Face to face: No- Are you interested in getting this done? No Contact provided Primary Care phone number and encouraged to call if any questions or concerns. Review that after hours nurse line [phone] and emergency room are available 04/06 for patient use. Contact verbalized good understanding. Suicide Screen - V: C-SSRS Screening [place] Suicide Severity Rating Scale (C-SSRS) screener 1. Over the past month, have you wished you were or wished you could go to sleep and not wake up? No 2. Over the past month, have you had any actual thoughts of killing yourself? No 3. Over the past month, have you been thinking about how you might do this? Response not required due to responses to other questions. 4. Over the past month, have you had these thoughts and had some intention of acting on them? Response not required due to responses to other questions. 5. Over the past month, have you started to work out or worked out the details of how to kill yourself? Response not required due to responses to other questions. 6. If yes, at any time in the past month did you intend to carry out this plan? Response not required due to responses to other questions. 7. In your lifetime, have you ever done anything, started to do anything, or prepared to do anything to end your life (for example, collected pills, obtained a gun, gave away valuables, went to the roof but didn't jump)? No 8. If YES, was this within the past 3 months? Response not required due to responses to other questions. /kimmy/ TAMMY EMERSON LPN LICENSED PRACTICAL NURSE Signed: 12/15/2024 14:36 [facility]
--- OUTSIDE RECORDS SUMMARY | 2025-03-26 08:31 | XMS_ITS | Encounter Summary ---
Author Name [facility] [place] Organization [facility] [place] Address [address], [place] [address] Support Name Relationship Address Phone JALEESA PEREZ Next of Kin [address] [place], [place] [id number] LINOJESIKA Emergency Contact [phone] , [...] Name Patient's Relationship to Policy Cooper [employer] (WNR) MEDICARE ADVANTAGE [employer] (WNR) Nov 12, 2019 [id number] [id number] [address]ang ART PATIENT Selected Encounter This section includes the information on record at [place] for the Encounter. Date/Time Encounter Type Encounter Description Reason Provider Source Jan 19, 2025 02:15 PM OFFICE O/P EST LOW 20 MIN PRIMARY CARE/MEDICINE ICD-10-CM I25.10 [place] heart disease of [place] coronary artery w/o CON Jacques Encounter Template Text not used by [place] Assessments - Encounter Diagnoses This section includes the primary and secondary diagnoses documented for the Encounter. Date/Time Primary/Secondary Diagnosis Diagnosis Name Provider Source Jan 19, 2025 04:23 PM PRIMARY Athscl heart disease of [place] coronary artery w/o DEL James [facility] Plan of Treatment: Future Appointments (+ 6 months) and Future Tests (+/- 45 days) The Plan of Treatment section includes future care activities for the patient from [facility] [place] [facility] This section includes future appointments and future orders which are active, pending or scheduled. Future Appointments This section includes appointments that were scheduled to occur 6 months from the date of the Encounter, up to a maximum of 20 appointments. The data comes from all [facility]. Appointment Date/Time Appointment Type Appointme nt Facility Name Feb 12, 2025 10:00 AM AMBULATORY - MEDICINE [facility] Mar 11, 2025 12:30 PM AMBULATORY - [facility] May 06, 2025 10:00 AM AMBULATORY - MEDICINE [facility] Active, Pending, and Scheduled Orders This section includes a listing of several types of active, pending, and scheduled orders, including clinic medications orders, diagnostic test orders, procedure orders and consult orders; where the start date of the order is 45 days before the date of the Encounter or 45 days after the date of theEncounter. The data comes from all [facility]. Test Date/Time Test Type Test Details Facility Name Feb 12, 2025 12:00 AM Laboratory - Chemi stry Order B12 GOLD/RED SST SERUM [facility] Feb 12, 2025 12:00 AM Laboratory - Chemi stry Order HGA1C BLOOD [facility] Feb 12, 2025 12:00 AM Laboratory - Chemi stry Order FOLATE (STL-MA) GOLD/RED SST SERUM [facility] Feb 12, 2025 12:00 AM Laboratory - Chemi stry Order TSH (MA-PB) GOLD/RED SST SERUM [facility] Lab Results: +/- 30 days of the encounter This section includes the Chemistry and Hematology Lab Results on record with [place] for the patient. Radiology Reports and Pathology Reports are provided separately, in subsequent sections. Lab Results This section contains the Chemistry/Hematology Results that were resulted 30 days before or 30 daysafter the date of the Encounter. Date/Time Source Result Type Result - Unit Interpretation Reference Range Specimen Type Comment Jan 19, 2025 03:45 PM [facility] PROST. SPECIFIC AG.(PB-STL) SERUM Specimen Ty pe: SERUM Comment: The listed sex of this patient may not be a typical indication for this test. Therefore, reference ranges or interpretive criteria listed may not be valid. Clinical correlation suggested. Ordering Provider: ZARI BOOKER Report Released Date/Time: Jan 19, 2025 03:35 PM Reporting Lab: [place] [address] [address] Performing Lab: [place] [address] [facility] [address] PROST. SPECIFIC AG.(PB-STL) 4.369 ng/mL HH 0-4 Vital Signs: All taken on the encounter date This section contains inpatient and outpatient Vital Signs collected on the date of the Encounter. Date/Time Temperature Pulse Blood Pressure Respiratory Rate SP02 Pain Height Weight Body Mass Index Source Jan 19, 2025 02:46 PM 0 [facility] Jan 19, 2025 02:32 PM 97.6 59 123/72 16 94 0 172.4 28 [facility] Social History: Smoking Status (Most current) and Tobacco Use (All prior to encounter date) This section includes the most current, and the historical, smoking and tobacco- related health factors from the [place] facility where the Encounter took place. Current Smoking Status This section includes the most current smoking, or tobacco-related health factor, from the [place] facility where the Encounter took place. Date/Time Current Smoking Status Comment Alex joe Jan 26, 2022 03:15 PM VA-TOBACCO FORMER USER [facility] Tobacco Use History This section includes a history of the smoking, or tobacco-related health factors, that were collected on or before the date of the Encounter. The data comes from the [place] facility where the Encounter took place. Date/Time Smoking Status/Tobacco Use Comment F acchago Jan 26, 2022 03:15 PM VA-TOBACCO QUIT 15 YRS OR MORE [facility] Feb 05, 2020 12:27 PM VA-TOBACCO FORMER USER [facility] Feb 05, 2020 12:27 PM VA-TOBACCO QUIT 15 YRS OR MORE [facility] Jul 11, 2018 09:27 AM VA-TOBACCO NEVER USED [facility] Apr 26, 2016 12:48 PM QUIT TOBACCO >7 YEARS AGO [facility] Apr 28, 2015 01:17 PM QUIT TOBACCO >7 YEARS AGO [facility] Jul 22, 2014 01:15 PM QUIT TOBACCO >7 YEARS AGO [facility] May 07, 2013 01:37 PM QUIT TOBACCO >7 YEARS AGO [facility] Feb 14, 2007 09:05 AM QUIT TOBACCO >7 YEARS AGO [facility] Advance Directives: All historical and current Section Date Range: From patient's date of to the date document was created. This section includes ALL of a patient's completed or amended [place] Advance and Rescinded Directives. The entries below indicate that a directive exists for the patient, but an actual copy is not included with this document. The data comes from all [place] facilities. Date Advance Directives Provider Source Feb 18, [address] [facility] Encounter Notes: All associated encounter notes This section contains the clinical notes associated to the Encounter. Date/Time Encounter Note(s) Provider Source Jan 19, 2025 04:12 PM PRIMARY CARE NOTE: LOCAL TITLE: PRIMARY CARE PROVIDER ESTABLISHED VISIT [facility] STANDARD TITLE: PRIMARY CARE NOTE DATE OF NOTE: JAN 19, 2025@16:12 ENTRY DATE: JAN 19, 2025@16:12:31 AUTHOR: ZARI BOOKER COSIGNER: CON KOO URGENCY: STATUS: COMPLETED PRIMARY CARE PROVIDER ESTABLISHED VISIT [facility] Has ADDENDA PRIMARY CARE PROVIDER ESTABLISHED VISIT [facility] CLINIC NOTE ASSESSMENT/PLAN: SUZANNE ART is a 79 year old MALE with history of dementia, CAD s/p CABG in , seizure disorder who [facility]. Has PCP at assisted living facility as well. #CAD S/p CABG per report as well as multiple stent placements, no anginal symptoms Will continue ASA/statin/BB as prescribed by assisted living facility #Seizure disorder #Movement disorder #Tremor #Dementia Continue keppra and depakote as prescribed by assisted living; recently prescribed, also has concern for tremor for which he has neurology [facility]. Per daughter has had shuffling gait and tremors which have improved since starting seizure medications. #Mood disorder Takes fluoxetine as prescribed by assisted living #Social Also discussed with daughter and with patient some difficult Health Care Maintenance Screenings: --Colon Ca: N/A --AAA: N/A --Lung Cancer: N/A, not a smoker for > 20 years --PSA: not indicated, family requesting at this time even after discussing potential harm of carrying out test but they wish to check due to exposure at [facility] - will check today and follow up RTC in 6 months Return to clinic in 6 months. Patient seen and discussed with Dr. Koo. Dr. Yaw Booker Internal Medicine Resident Subjective Information SUZANNE ART is a 79 year old MALE with a PMHx of CAD, dementia, HLD, HTN who presents to clinic on JAN 19, 2025 [facility]. MEDICAL HISTORY: 1) Coronary artery disease (SNOMED CT 80262240) 2) Hyperlipidemia (SNOMED CT 52440479) 3) Allergic Rhinitis 4) Coronary Artery Bypass * (ICD-9-CM V45.81) 5) Hypertension (SNOMED CT 37191872) ALLERGIES: LIPITOR, ZOCOR, RAMIPRIL, ATORVASTATIN ACTIVE OUTPATIENT MEDS: Active Outpatient Medications (including Supplies): No Medications Found REVIEW OF SYSTEMS: 10 point ROS obtained and negative unless otherwise stated in HPI OBJECTIVE Vital Signs: Pulse: 59 (01/19/2025 14:32) BP: 123/72 (01/19/2025 14:32) RESP: 16 (01/19/2025 14:32) Pain: 0 (01/19/2025 14:46) Weight: 172.4 lb [78.20 kg] (01/19/2025 14:32) BMI: 27.9 PHYSICAL EXAM: General: cooperative, well appearing, no acute distress HEENT: atraumatic, symmetric, sclera anicteric, no pharyngeal erythema/exudate Neck: No JVD, no LAD CV: RRR, normal S1/S2, no murmurs Lungs: CTAB, no rales Abd: nontender, nondistended, nml bowel sounds Skin: no rashes or lesions, warm, dry Neuro: A&O x3, follows commands, no focal deficits, CN II-XII grossly intact Ext: 5/5 strength in all extremities, 2+ pulses, good sensation throughout LAB DATA: No COMPREHENSIVE METABOLIC PANEL EO data found No CBC EO data found IMAGING: No data available /kimmy/ Zari Booker MD Internal Medicine Resident Signed: 01/19/2025 16:23 /kimmy/ CON KOO MD, MD Cosigned: 01/27/2025 15:24 01/27/2025 ADDENDUM STATUS: COMPLETED CLINIC ATTENDING I have personally seen and evaluated patient, reviewed CPRS and discussed case with resident whom I supervised during this visit. Detailed history and findings as noted by resident. I agree with the plan as outlined in the resident note which I discussed with the patient. He was advised to contact us or RTC/ER for interim problems. /kimmy/ CON KOO MD, MD Signed: 01/27/2025 15:25 ZARI BOOKER [facility] Jan 19, 2025 02:37 PM NURSING NOTE: LOCAL TITLE: V15 PACT FACE TO FACE NOTE STL STANDARD TITLE: NURSING NOTE DATE OF NOTE: JAN 19, 2025@14:37 ENTRY DATE: JAN 19, 2025@14:37:10 AUTHOR: CIRA GATES EXP COSIGNER: URGENCY: STATUS: COMPLETED Provider Visit: Patient Identifiers : Full Name Date of Reason for visit: Daughter(POA) with , expressed concerns of patient mental status. Danielson currently [facility] in [facility], doesn't want to live there any longer. According to daughter is unable to care for himself. Danielson has Dementia present's well during day, confused at night. Former along with other family members are attempting to assist in seeking legal guidance regarding his ability to live on his own. Daughter feels there's ulterior motive. Established Follow-Up Establish care Mode of Arrival: Ambulatory Allergy Review: LIPITOR, ZOCOR, RAMIPRIL, ATORVASTATIN Allergy list reviewed and remains current. Recent Vital Signs: Temperature: 97.6 F [36.4 C] (01/19/2025 14:32) Pulse: 59 (01/19/2025 14:32) Respiration: 16 (01/19/2025 14:32) B/P: 123/72 (01/19/2025 14:32) Pain: 0 (01/19/2025 14:32) Wt: 172.4 lb [78.20 kg] (01/19/2025 14:32) Ht: 66 in [167.6 cm] (08/07/2019 14:58) BMI: 27.9 POX: 94% (01/19/2025 14:32) PERSONAL HEALTH INVENTORY Notes: No data available for PHI note titles PERSONAL HEALTH INVENTORY - MAP: 12/15/2024 Personal Health Plan [place], [place], [place] (MAP) being with friends What matters most to you in your life right now? --- Danielson's Response: family Would you like to discuss any personal problem, family problem, alcohol use, drug use, or a mental or emotional illness? No Pain Interview Verbal patient Pain Rating Score: 0 Plan of Care: Will inform physician/provider of patient's pain. Contact provided Primary Care phone number and encouraged to call if any questions or concerns. Review that after hours nurse line [phone] and emergency room are available 04/06 for patient use. Contact verbalized good understanding. /kimmy/ CIRA GATES LICENSED PRACTICAL NURSE Signed: 01/19/2025 14:55 CIRA GATES [facility]
--- OUTSIDE RECORDS SUMMARY | 2025-03-26 08:31 | XMS_ITS | Clinical Summary ---
Author Organization [facility] Address [address] [address] Phone Care Team Providers Care Group Program Manager Name Role Phone Kwasi Mustafa MD Primary Care Provider [phone] Allergies Active Allergy Reactions Criticality Noted Date Comments Kristian Inhibitors Swelling 07/23/2023 Angioedema Medications rosuvastatin (CRESTOR) 20 MG Tablet Take 10 mg by mouth daily. Take half of 20mg tab once daily. Active albuterol 108 (90 Base) MCG/ACT Aerosol Solution take 2 Puffs by inhalation every 6 hours as needed for Wheezing or Cough. 8 g 3 Active calcium carbonate (TUMS) 500 MG Chewable Tablet Take 2 Tablets by mouth every 8 hours as needed for Heartburn or Indigestion. 30 Tablet 3 Active folic acid (FOLVITE) 1 MG Tablet Take 1 Tablet by mouth daily. 30 Tablet 3 Active guaiFENesin (MUCINEX) 600 MG TABLET SR 12 HR Take 1 Tablet by mouth 2 times daily. 180 Tablet 3 Active Multivitamin-Mi nerals Tablet Take 1 Tablet by mouth daily. 90 Tablet 3 Active ondansetron (ZOFRAN-ODT) 4 MG TABLET DISPERSIBLE Take 1 Tablet by mouth every 6 hours as needed for Nausea - 1st line. 10 Tablet 3 Active polyethylene glycol (GLYCOLAX, MIRALAX) 17 g PackIndications :Constipation Take 1 Packet by mouth 2 times daily as needed for Constipation - 1st line. Dissolve in 4-8 oz of liquid. Indications: Constipation 90 Packet 3 Active senna (SENOKOT) 8.6 MG Tablet Take 1 Tablet by mouth 2 times daily as needed for Constipation - 2nd line. 30 Tablet 3 Active Active Problems Problem Noted Date Diagnosed Date Alzheimer's disease with late onset (CODE) 03/06 Other amnesia 03/06/2025 Allergic rhinitis 12/30/2024 Recurrent falls 10/13/2023 Chronic alcoholism 10/13/2023 COVID-19 10/11/2023 Hypertension, essential 11/27/2015 Mixed hyperlipidemia 11/27/2015 ASHD (arteriosclerotic heart disease) 11/27/2015 Resolved Problems Problem Noted Date Diagnosed Date Resolved Date History of coronary artery bypass surgery 12/30/2024 12/30/2024 Statin intolerance 11/27/2015 7 KRISTIAN inhibitor intolerance 11/27/2015 Angioedema 11/27/2015 07/23/2023 Encounters Date Type Department Care Team Description 03/06/2025 10:30 AM CDT Office Visit [facility] [address] [place] [address] Sheila Aguayo APRN, [place] Alzheimer's disease with late onset (CODE) (Primary Dx); Hypertension, essential; Mixed hyperlipidemia; ASHD (arteriosclerotic heart disease) Discharge Disposition: Discharged to home or Selfcare 03/06/[address] [facility] [address] [place] [address] Kwasi Mustafa MD 03/06/2025 Travel 01/08/2025 Telephone [facility] [address] [place] [address] Kwasi Mustafa MD Appointment 01/08/2025 Telephone [facility] [address] [place] [phone] Kwasi Mustafa MD Advice Only from Last 3 Months Immunizations Immunization Administration Dates Next Due Influenza Vaccine greater than 3 yrs 09/11/2019, 11/12/2010 Influenza Vaccine, Quadrivalent, PF 08/07/2019,1 Influenza Vaccine,unspecifie d Formulation 08/17/2017,10/02/2013,09/19/2012,2011 Influenza, High-dose, Quadrivalent 09/26/2022, Influenza, Quadrivalent, Adjuvanted 07/23/2023 Influenza, high-dose, trivalent, PF 08/11/2016 Influenza,Split Virus,Trivalent,Injectable,PF 08/30/2016,12/22/2015,10/22/2014 PUR PCV-13 12/12/2016 Pneumococcal Vaccine - 13 Valent 04/28/2015 Pneumococcal Vaccine Adult - 23 Valent 11/12/2011 Pneumococcal Vaccine, Unspec ified Formulation 11/14/2011 TD VACCINE 04/12/2006 TDAP Vaccine 04/28/2015 Zoster Vaccine Recombinant 01/26/2022,08/07/2019 Zoster Vaccine, live 01/29/2013 Family History Relation Name Status Comments Father Mother Social History Tobacco Use Types Packs/Day Years Used Date Smoking Tobacco: Never Smokeless Tobacco: Never Alcohol Use Standard Drinks/Week Comments No 0 (1 standard drink = 0.6 oz pur e alcohol) PHQ-2 Answer Date Recorded Total Score - Questions 1-9 0 02/11 Sexually Active Control Partners Comments Never Sex and Gender Information Value Date Recorded Sex Assigned at Not on file Legal Sex Male 7:22 PM CDT Gender Identity Not on file Sexual Orientation Not on file Last Filed Vital Signs Vital Sign Reading Time Taken Comments Blood Pressure 122/78 03/06/2025 10:32 AM CDT Pulse 69 03/06/2025 10:32 AM CDT Temperature 36.7 C (98.1 F) 03/06/2025 10:32 AM CDT Respiratory Rate 16 03/06/2025 10:32 AM CDT Oxygen Saturation 95% 03/06/2025 10:32 AM CDT Inhaled Oxygen Concentration - - Weight 79.4 kg (175 lb 1.6 oz) 03/06/2025 10:32 AM CDT Height 167.6 cm (5' 6 ) 03/06/2025 10:32 AM CDT Body Mass Index 28.26 03/06/2025 10:32 AM CDT Plan of Treatment Health Maintenance Due Date Last Done Comments Hepatitis C Virus (HCV) Screening 1945 Respiratory Syncytial Virus (RSV) Immunization (Adult) (1 - 1-dose 75+ series) 2021 SARS-COV-2 Immunization ( season) 2024 10/30/2022, 11/08/2021, 02/03/2021, Additional history exists Td Immunization Every 10 Years (Adults With 1 Tdap) 04/28/2025 04/28/2015, 04/12/2006 Influenza Immunization (Season Ended) 2025 07/23/2023, 09/26/2022, 08/25/2021, Additional history exists Colonoscopy High Risk Discontinued 08/29/2013 Colonoscopy Discontinued 08/29/2013 Colorectal Cancer Screening Discontinued TdaP Immunization Discontinued 04/28/2015 Pneumococcal Immunization (50+ years) Completed 12/12/2016, 04/28/2015, 11/14/2011, Additional history exists Pneumococcal Immunization Combined Discontinued 12/12/2016, 04/28/2015, 11/14/2011, Additional history exists Zoster Immunization Completed 01/26/2022, 08/07/2019, 01/29/2013 Cologuard Discontinued Hepatitis B Immunization Aged Out No longer eligible based on patient's age to complete this topic Immunochemical Fecal Occult Blood Discontinued Meningococcal Immunization (ACWY) Aged Out No longer eligible based on patient's age to complete this topic Rotavirus Immunization Aged Out No lo nger eligible based on patient's age to complete this topic Procedures Procedure Name Priority Date/Time Associated Diagnosis Comments COLONOSCOPY Routine 08/29/2013 from Last 3 Months or Most Recently Relevant to Health Maintenance Results * COLONOSCOPY (08/29/2013) Jaylon Vaughn Jr., MD PROCEDURE/MINOR ARSENIO GICAL ORDERABLES Final Result from Last 3 Months or Most Recently Relevant to Health Maintenance Insurance MEDICARE C [employer] Advance Directives Documents on File Type Date Recorded Patient Customer Project Manager Expl anation Power of Artistic Director for Health Care 03/05/2025 4:02 PM POA-HC, 02/24/2025 * Full Code (Latest Code Status on File) Date Activated Date Inactivated Comments 10/11/2023 5:45 PM 10/19/2023 4:19 PM CPR-Full Tr eatment: FULL ARREST: Attempt Resuscitation/CPR wit intubation and mechanical ventilation. PRE-ARREST: Use entire range of life support measures to stabilize the patient. Care Teams Group Program Manager Relationship Specialty Start Date End Date Kwasi uMstafa MD [address] [place] [address] PCP - General Internal Medicine 08/02/16
--- OUTSIDE RECORDS SUMMARY | 2025-03-26 08:31 | XMS_ITS | Clinical Summary ---
Author Organization [facility] Address [address] [place] [address] Phone Care Team Providers Care Transmission Superintendent Name Role Phone Unavailable Primary Care Provider Unavailabl e Social History Tobacco Use Types Packs/Day Years Used Date Smoking Tobacco: Never Assessed Sex and Gender Information Value Date Recorded Sex Assigned at Not on file Legal Sex Male 5:36 AM VACATION PLANNER Gender Identity Not on file Sexual Orientation Not on file Plan of Treatment Health Maintenance Due Date Last Done Comments DTAP/TDAP/TD VACCINES (1 - Tdap) 1964 PNEUMOCOCCAL VACCINE 50+ YEARS (1 of 1 - PCV) 11/10/19 96 ZOSTER VACCINE (1 of 2) 1996 RSV VACCINE (60+ or ) (1 - 1-dose 75+ series) 2021 INFLUENZA VACCINE (#1) 2024 Insurance E-Sign [facility] OPEN ACCESS
[2025-03-26 08:42] LABS: Basophils Absolute Auto 0.1 K/mm3 (0.0-0.1); Basophils Percent Auto 0.8 % (0.2-1.2); Eosinophils Absolute Auto 0.2 K/mm3 (0-0.3); Eosinophils Percent Auto 2.7 % (0-4.4); Hemoglobin 11.6 g/dL (14.0-18.0); Immature Granulocyte Absolute 0.02 K/mm3 (0.00-0.031); Immature Granulocyte Percent A 0.3 % (0-0.5); Lymphocytes Absolute Auto 2.89 K/mm3 (0.9-3.2); Mean Corpuscular HGB Conc 33.1 g/dl (32-36); Mean Corpuscular Hemoglobin 30.8 pg (26-34); Mean Corpuscular Volume 92.8 fl (80-100); Mean Platelet Volume 10.4 fl (7.4-10.4); Monocytes Absolute Auto 0.5 K/mm3 (0.1-0.6); Neutrophils Absolute Auto 2.3 K/mm3 (1.3-6.7); Neutrophils Percent Auto 38.2 % (45.5-73.1); Platelet Count Result 172 k/mm3 (150-375); Red Blood Count 3.77 M/mm3 (4.6-6.20); Red Cell Distribution Width 13.5 % (11.5-14.5); White Blood Count 5.9 K/mm3 (4.5-10.0)
[2025-03-26 08:47] LABS: Alanine Aminotransferase 30 U/L (6-50); Albumin Level 3.4 g/dL (3.5-5.1); Alkaline Phosphatase 45 U/L (38-126); Anion Gap 7 mmol/L (4-12); Aspartate Amino Transferase 36 U/L (17-59); Bilirubin,Total 0.6 mg/dL (0.2-1.3); Blood Urea Nitrogen 8 mg/dL (9-20); Calcium 8.6 mg/dL (8.4-10.2); Carbon Dioxide 24 mmol/L (22-30); Chloride 102 mmol/L (98-107); Estimated CRCL calculation 61 ml/min; Estimated Glomerular Filt Rate > 60; Glucose 83 mg/dL (65-110); Potassium 3.8 mmol/L (3.4-5.0); Sodium 133 mmol/L (137-145)
[2025-03-26 09:53] VITALS: BP 124/69; BP 137/82; BP 139/75; PULSE 50; PULSE 53; PULSE 66
[2025-03-26 09:54] VITALS: BP 124/69; PULSE 66; RESP 18; O2SAT 99
--- NOTE | 2025-03-26 10:22 | ED_ITS ---
HPI - Fall General Chief Complaint: Fall Stated Complaint: glf, hip pain without deformity Time Seen by Provider: 03/26/25 08:20 History of Present Illness HPI Narrative: Patient went to bed last night as usual and woke up on the floor. His bed is about 2-3 feet off the floor, he does have some pain to his left hip however this is chronic for him. Does not have any pain anywhere else. No chest pain, shortness of breath, dizziness, nausea or vomiting. Related Data Home Medications Medication Instructions Recorded Confirmed Last Taken Type Antacid 650 mg PO Q8-10H PRN Indigestion 06/13/24 06/13/24 Unknown History acetaminophen 650 mg 650 mg PO Q6-8H PRN Pain 06/13/24 06/13/24 Unknown History tablet,extended release albuterol sulfate 90 mcg/actuation 2 inh inhalation Q6-8H PRN Wheezing 06/13/24 06/13/24 Unknown History aerosol inhaler aspirin 81 mg capsule 81 mg PO DAILY 06/13/24 06/13/24 Unknown History fluoxetine 20 mg capsule 20 mg PO DAILY 06/13/24 06/13/24 Unknown History folic acid 1 mg tablet 1 mg PO DAILY 06/13/24 06/13/24 Unknown History guaifenesin 600 mg tablet, 600 mg PO BID 06/13/24 06/13/24 Unknown History extended release 12 hr [id number]-[id number]-[id number] 150 mcg-vit K1 2 tablet PO DAILY 06/13/24 06/13/24 Unknown History 30 mcg-lycop 300 mcg-lutein tablet (Centrum Minis Men 50 Plus) ondansetron 4 mg disintegrating 4 mg PO Q6H PRN Nausea 06/13/24 06/13/24 Unknown History tablet polyethylene glycol 3350 17 17 g PO BID PRN Constipation 06/13/24 06/13/24 Unknown History gram/dose oral powder (ClearLax) rosuvastatin 10 mg tablet 10 mg PO DAILY 06/13/24 06/13/24 Unknown History sennosides 8.6 mg tablet (senna) 8.6 mg PO BID PRN Constipation 06/13/24 06/13/24 Unknown History Allergies Allergy/AdvReac Type Severity Reaction Status Date / Time KIRA Inhibitors Allergy Unknown Verified 06/13/24 23:11 Review of Systems 2 Review of Systems: All systems reviewed & are unremarkable except as noted in HPI and below PMFSH Past Medical History Medical History (Updated 03/26/25 @ 10:12 by Serenity Villavicencio MD) Rash Seizure Dementia Hyperlipidemia Depression COPD (chronic obstructive pulmonary disease) Surgical History Surgical History Status post full thickness skin graft Left forearm History of two vessel coronary artery bypass graft Family History Family History Mother Heart disease Father Heart disease Social History Social History Social History: Patient reports that 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 He reports that he used to smoke a pack of cigarettes per day for “a few years” but quit when he was quite young. He used to drink alcohol episodically but quit doing so many years ago. He denies any illicit substance use. Code status: DNR/DNI Surrogate decision maker: Edward Nice (Daughter) Smoking packs per day: 1 Smoking cigarettes per day: 20.0 Smoking status: Former smoker Alcohol intake: former Substance use: never Do You Feel Safe in your Home?: Yes Lack of Transportation: No Lack of Food: Never True Current Housing: I Have Housing Concerned About Future Housing: No Difficulty Paying Gas/Electric Bills: No Difficulty Paying for Meds: No Currently Unemployed: No Education: High School Diploma/GED Difficulty w/ Childcare or Family Care: No Spiritual care concerns: No Exam 2 Narrative: EXAMINATION OF ORGAN SYSTEMS/BODY AREAS: Constitutional: Vital signs per nursing GENERAL:[No acute distress, non-toxic appearing.] HEAD: Normal with no signs of head trauma. EYES: EOMI, conjunctiva normal ENT: Hearing grossly intact LUNGS: Nonlabored breathing. HEART: [Regular rate and rhythm] ABD: [Soft], [nontender to palpation] EXT: Normal range of motion SKIN: [No rashes or lesions.] NEURO: [Alert and oriented x 3. No gross focal sensory or strength deficits.] PSYCH: Normal affect Course Vital Signs Vital signs: Vital Signs Temperature 97.7 F 03/26/25 08:16 Pulse Rate 52 L 03/26/25 08:16 Respiratory Rate 11 L 03/26/25 08:16 Blood Pressure 137/78 03/26/25 08:16 Pulse Oximetry 93 03/26/25 08:16 Oxygen Delivery Room Air 03/26/25 08:16 Temperature 97.7 F 03/26/25 08:16 Pulse Rate 66 03/26/25 09:54 Respiratory Rate 18 03/26/25 09:54 Blood Pressure 124/69 03/26/25 09:54 Pulse Oximetry 99 03/26/25 09:54 Oxygen Delivery Room Air 03/26/25 08:16 MDM - Fall MDM Narrative Medical decision making narrative: A 71-year-old male presents here after being found on the floor at his [place] [facility], he cannot recall what happened before he went to sleep that night, he is denying complaints of pain pain to his left hip though this has been ongoing for a long while. Given his age I did obtained for workup and imaging in thankfully he has no acute abnormality on his CT head, C-spine, chest x-ray and x-ray. He continues to deny any complaints, [facility] would like did have a urinalysis which is negative. Labs within acceptable limits. He is agreeable to outpatient management and return precautions Lab Data 03/26/25 08:31 03/26/25 08:31 Labs: Lab Results 03/26/25 03/26/25 Range/Units 08:31 10:42 WBC 5.9 (4.5-10.0) K/mm3 RBC 3.77 L (4.6-6.20) M/mm3 Hgb 11.6 L (14.0-18.0) g/dL Hct 35.0 L (42.0-52.0) % MCV 92.8 (80-100) fl MCH 30.8 (26-34) pg MCHC 33.1 (32-36) g/dl RDW 13.5 (11.5-14.5) % Plt Count 172 (150-375) k/mm3 MPV 10.4 (7.4-10.4) fl Immature Gran % (Auto) 0.3 (0-0.5) % Neut % (Auto) 38.2 L (45.5-73.1) % Lymph % (Auto) 49.0 H (18.3-44.2) % Leslie % (Auto) 9.0 H (2.6-8.5) % Eos % (Auto) 2.7 (0-4.4) % Baso % (Auto) 0.8 (0.2-1.2) % Lymph # (Auto) 2.89 (0.9-3.2) K/mm3 Leslie # (Auto) 0.5 (0.1-0.6) K/mm3 Eos # (Auto) 0.2 (0-0.3) K/mm3 Baso # (Auto) 0.1 (0.0-0.1) K/mm3 Abs Immat Gran (auto) 0.02 (0.00-0.031) K/mm3 Absolute Neuts (auto) 2.3 (1.3-6.7) K/mm3 Absolute Nucleated RBC 0.000 (0.0-0.012) K/mm3 Nucleated RBC % 0.0 (0.0-0.2) % Sodium 133 L (137-145) mmol/L Potassium 3.8 (3.4-5.0) mmol/L Chloride 102 (98-107) mmol/L Carbon Dioxide 24 (22-30) mmol/L Anion Gap 7 (4-12) mmol/L BUN 8 L D (9-20) mg/dL Creatinine 0.82 (0.7-1.3) mg/dL Estim Creat Clear Calc 61 ml/min Estimated GFR > 60 (59 - ) Glucose 83 (65-110) mg/dL Calcium 8.6 (8.4-10.2) mg/dL Total Bilirubin 0.6 (0.2-1.3) mg/dL AST 36 (17-59) U/L ALT 30 (6-50) U/L Alkaline Phosphatase 45 (38-126) U/L Total Protein 6.0 L (6.3-8.2) g/dL Albumin 3.4 L (3.5-5.1) g/dL Urine Color Yellow (Yellow) Urine Appearance Clear (Clear) Urine pH 7.0 (5.0-9.0) Ur Specific [place] 1.006 (1.001-1.035) Urine Protein Negative (Negative) mg/dL Urine Glucose (UA) Negative (Negative) mg/dL Urine Ketones Negative (Negative) mg/dL Ur Blood (Man) Negative (Negative) Urine Nitrate Negative (Negative) Urine Bilirubin Negative (Negative) Urine Urobilinogen 0.2 (<2.0) mg/dL Leukocyte Esterase Rfl Negative (Negative) BRIELLE/UL Discharge Plan Discharge Clinical Impression: Fall Patient Disposition: Home Condition: Stable Instructions: Fall Prevention for Older Adults (ED) Additional Instructions: Your imaging today thankfully does not show anything broken, and your labs were normal. Please follow up with your doctor; you can always return for any further issues. Patient Language: [place] Prescriptions: No Action fluoxetine 20 mg capsule 20 mg PO DAILY rosuvastatin 10 mg tablet 10 mg PO DAILY Antacid 650 mg PO Q8-10H PRN (Reason: Indigestion) sennosides [senna] 8.6 mg Tablet 8.6 mg PO BID PRN (Reason: Constipation) acetaminophen 650 mg Tablet Extended Release 650 mg PO Q6-8H PRN (Reason: Pain) folic acid 1 mg Tablet 1 mg PO DAILY polyethylene glycol 3350 [ClearLax] 17 gram/dose Powder 17 g PO BID PRN (Reason: Constipation) albuterol sulfate 90 mcg/actuation HFA aerosol inhaler 2 inh INHALATION Q6-8H PRN (Reason: Wheezing) ondansetron 4 mg Tablet,Disintegrating 4 mg PO Q6H PRN (Reason: Nausea) guaifenesin 600 mg Tablet Extended Release 12hr 600 mg PO BID aspirin 81 mg Capsule 81 mg PO DAILY Centrum Minis Men 50 Plus [id number] mcg Tablet 2 tablet PO DAILY hydrocortisone 1 % Cream 1 applic topical Q12HR PRN (Reason: Rash) Qty: 1 0RF levetiracetam 750 mg Tablet 750 mg PO Q12HR Qty: 60 0RF doxycycline hyclate 100 mg Tablet 100 mg BYMOUTH Q12H Qty: 20 0RF Follow-up/Referrals: UNKNOWN,DOCTOR [Primary Care Provider] -
[2025-03-26 10:50] LABS: Add Urine Microscopic? NO; Appearance Urine Clear (Clear); Bilirubin Urine Negative (Negative); Blood Urine Negative (Negative); Color Urine Yellow (Yellow); Glucose Urine UA Negative (Negative); Ketones Urine Negative (Negative); Leukocyte Esterase Ur Negative LEU/UL (Negative); Nitrate Urine Negative (Negative); Protein Urine Negative (Negative); Specific Grav Ur 1.006 (1.001-1.035); Urobilinogen Urine 0.2 mg/dL (<2.0)
[2025-03-26 11:24] VITALS: BP 148/74; PULSE 51; RESP 18; O2SAT 97
== END 2025-03-26 11:26 | disposition home or self-care (01) ==
PROVIDERS: Emergency Provider Emergency Medicine
DX: M25.552 Pain in left hip (principal); J44.9 Chronic obstructive pulmonary disease, unspecified; E78.5 Hyperlipidemia, unspecified; F03.90 Unspecified dementia, unspecified severity, without behavioral disturbance, psychotic disturbance, mood disturbance, and anxiety; Z87.891 Personal history of nicotine dependence; W06.XXXA Fall from bed, initial encounter; Y92.122 Bedroom in nursing home as the place of occurrence of the external cause
CPT/HCPCS: 36415; 70450; 71045; 72125; 73502; 80053; 81003; 85025; 93005; 99284

== ENCOUNTER 2025-06-23 12:51 | Emergency (ER) | payer MEDICARE, SELFPAY ==
--- NOTE | ~2025-06-23 | CT_ITS ---
EXAMINATION: CT brain wo con DATE: 06/23/2025 14:18 INDICATION: Altered mental status TECHNIQUE: Computed tomography (CT) of the head was performed without intravenous contrast. Sagittal and coronal reconstructions were performed. The mA was adjusted according to patient size. Iterative reconstruction technique was employed. The dose-length product was 681.00 mGy-cm. COMPARISON: head CT dated 03/26/2025 FINDINGS: Again seen are old infarcts at the anterior left basal ganglia involving portions of the caudate and lentiform nuclei and intervening anterior limb of the internal capsule. Additional small old infarct at the junction the anterior limb of the left internal capsule and subinsular white matter. No acute intracranial hemorrhage, acute infarction or abnormal extra axial fluid collection. There is mild sca ttered white matter hypoattenuation consistent with chronic small vessel ischemic disease. Symmetric prominence of the sulci and ventricles consistent with moderate age-appropriate diffuse cerebral vol ume loss. Ventricles are normal and symmetric. No mass/mass effect. Chronic small left mastoid effusi on. The orbits are normal. Mild mucosal thickening the bilateral ethmoid sinuses. IMPRESSION: 1. Old infarcts in the bilateral basal ganglia. No acute intracranial process. 2. Age-related changes including moderate diffuse volume loss and mild scattered white matter hypoatt enuation consistent with chronic small vessel ischemic disease. Reviewed, dictated and finalized at location A. IMPRESSION: 1. Old infarcts in the bilateral basal ganglia. No acute intracranial process. 2. Age-related changes including moderate diffuse volume loss and mild scattere d white matter hypoattenuation consistent with chronic small vessel ischemic di sease.
--- NOTE | 2025-06-23 12:56 | ECG_ITS ---
Test Date: 2025-06-23 12:58:52 Measurements Intervals [place] Rate: 57 P: -14 ID: [id number] QRS: 7 QRSD: 104 T: 75 QT: 467 QTc: 456 Interpretive Statements SINUS BRADYCARDIA LEFT VENTRICULAR HYPERTROPHY WITH ST-T CHANGE MINIMAL Q WAVES- HIGH LATERAL LEADS BASELINE ARTIFACT- I, II ,AVR BORDERLINE ECG Compared to ECG 03/26/2025 08:25:15 NO SIGNIFICANT CHANGE Electronically Signed On 06-23-2025 14:07:34 CDT by Vinny Escobar D.O.
[2025-06-23 12:57] VITALS: BP 138/80; PULSE 65; RESP 18; TEMP 36.5; O2SAT 100
[2025-06-23 13:08] LABS: Hematocrit 35.0 % (42.0-52.0); Hemoglobin 11.5 g/dL (14.0-18.0); Immature Granulocyte Percent A 0.5 % (0-0.5); Lymphocytes Absolute Auto 3.52 K/mm3 (0.9-3.2); Mean Corpuscular HGB Conc 32.9 g/dl (32-36); Mean Corpuscular Hemoglobin 30.7 pg (26-34); Mean Corpuscular Volume 93.6 fl (80-100); Nucleated Red Blood Cells Absolute Auto 0.000 K/mm3 (0.0-0.012); Nucleated Red Blood Cells Perc 0.0 % (0.0-0.2); Platelet Count Result 189 k/mm3 (150-375); Red Blood Count 3.74 M/mm3 (4.6-6.20); White Blood Count 8.5 K/mm3 (4.5-10.0)
[2025-06-23 13:19] LABS: INR 1.0; Prothrombin Time 13.8 Seconds (11.1-14.7)
[2025-06-23 13:20] LABS: Partial Thromboplastin Time 34.1 Seconds (22.3-36.8)
[2025-06-23 13:42] LABS: Alanine Aminotransferase 21 U/L (6-50); Albumin Level 3.6 g/dL (3.5-5.1); Alkaline Phosphatase 53 U/L (38-126); Anion Gap 8 mmol/L (4-12); Aspartate Amino Transferase 33 U/L (17-59); Bilirubin,Total 0.4 mg/dL (0.2-1.3); Blood Urea Nitrogen 10 mg/dL (9-20); Calcium 8.9 mg/dL (8.4-10.2); Carbon Dioxide 25 mmol/L (22-30); Chloride 98 mmol/L (98-107); Estimated CRCL calculation 58 ml/min; Estimated Glomerular Filt Rate > 60; Glucose 96 mg/dL (65-110); Potassium 3.7 mmol/L (3.4-5.0); Sodium 131 mmol/L (137-145); Total Protein 6.1 g/dL (6.3-8.2)
[2025-06-23 14:03] LABS: Add Urine Microscopic? NO; Appearance Urine Clear (Clear); Glucose Urine UA Negative (Negative); Leukocyte Esterase Ur Negative LEU/UL (Negative); Nitrate Urine Negative (Negative); Specific Grav Ur 1.011 (1.001-1.035)
--- OUTSIDE RECORDS SUMMARY | 2025-06-23 14:33 | XMS_ITS | Encounter Summary ---
Author Name [facility] [place] Organization [facility] [place] Address [address] [place] [address] Support Name Relationship Address Phone JESIKA HUYNH Emergency Contact [address] , [place] [address] DAYJENNIFER Next of Kin Unknown Insurance Providers: [...] Name Patient's Relationship to Policy Cooper [employer] [facility] (WNR) MEDICARE ADVANTAGE [facility] (WNR) Nov 12, 2019 [id number] [id number] Devang RODRIGUEZ PATIENT Selected Encounter This section includes the information on record at [place] for the Encounter. Date/Time Encounter Type Encounter Description Reason Provider Source May 06, 2025 10:00 AM OFFICE O/P EST HI 40 MIN NEUROLOGY ICD-10-CM G20.C Parkinsonism, unspecified JOSEF,TWYLA E Encounter Template Text not used by [place] Assessments - Encounter Diagnoses This section includes the primary and secondary diagnoses documented for the Encounter. Date/Time Primary/Secondary Diagnosis Diagnosis Name Provider Source May 06, 2025 02:10 PM PRIMARY Parkinsonism, unspecified JOSEF,TWYLA [facility] May 06, 2025 02:10 PM SECONDARY Unsp dementia, moderate, with other behavioral disturb TWYLA BAHENA [facility] Plan of Treatment: Future Appointments (+ 6 months) and Future Tests (+/- 45 days) The Plan of Treatment section includes future care activities for the [facility] [place] [facility] This section includes future appointments and future orders which are active, pending or scheduled. Future Appointments This section includes appointments that were scheduled to occur 6 months from the date of the Encounter, up to a maximum of 20 appointments. The data comes from all [place] treatment [facility]. Appointment Date/Time Appointment Type Appointme nt Facility Name Jul 30, 2025 12:30 PM AMBULATORY - NONE [facility] Oct 21, 2025 11:00 AM AMBULATORY - MEDICINE [facility] Active, Pending, and Scheduled Orders This section includes a listing of several types of active, pending, and scheduled orders, including clinic medications orders, diagnostic test orders, procedure orders and consult orders; where the start date of the order is 45 days before the date of the Encounter or 45 days after the date of theEncounter. The data comes from all [place] treatment [facility]. Test Date/Time Test Type Test Details Facility Name May 06, 2025 11:38 AM Consult Order [facility] Cons Cover Stitch Machine Operator's Choice [facility] Lab Results: +/- 30 days of the encounter This section includes the Chemistry and Hematology Lab Results on record with [place] for the patient. Radiology Reports and Pathology Reports are provided separately, in subsequent sections. Lab Results This section contains the Chemistry/Hematology Results that were resulted 30 days before or 30 daysafter the date of the Encounter. Date/Time Source Result Type Result - Unit Interpretation Reference Range Specimen Type Comment May 06, 2025 11:58 AM [facility] B12 SERUM Specimen Type: SERUM No comment entered. Ordering Provider: WICHO LANGE Report Released Date/Time: May 06, 2025 11:18 AM Reporting Lab: [facility] [address] [address] Performing Lab: [facility] [address] [address] B12 1525 pg/mL H 213-816 May 06, 2025 11:58 AM [facility] FOLATE (STL-MA) SERUM Specimen Type: SERUM No comment entered. Ordering Provider: WICHO LANGE Report Released Date/Time: May 06, 2025 11:18 AM Reporting Lab: [place] [address] [address] Performing Lab: [place] [address] [address] [address] FOLATE (STL-MA) >40.0 ng/mL H 7-20 May 06, 2025 11:58 AM [facility] TSH W/ REFLEX FT4 (STL) PLASMA Specimen Type: PLASMA No comment entered. Ordering Provider: WICHO LANGE Report Released Date/Time: May 06, 2025 11:18 AM Reporting Lab: [address] [address] Performing Lab: [address] [address] TSH 1.512 u[IU]/mL 0.47-5 May 06, 2025 11:58 AM [facility] HGA1C BLOOD Specimen Type: BLOOD No comment entered. Ordering Provider: WICHO LANGE Report Released Date/Time: May 06, 2025 11:18 AM Reporting Lab: [place] [address] [address] Performing Lab: [address] [address] HGA1C 5.6 4.0-6.0 Social History: Smoking Status (Most current) and Tobacco Use (All prior to encounter date) This section includes the most current, and the historical, smoking and tobacco- related health factors from the [place] facility where the Encounter took place. Current Smoking Status This section includes the most current smoking, or tobacco-related health factor, from the [place] facility where the Encounter took place. Date/Time Current Smoking Status Comment Alex joe Jan 26, 2022 03:15 PM VA-TOBACCO QUIT 15 YRS OR MORE [facility] Tobacco Use History This section includes a history of the smoking, or tobacco-related health factors, that were collected on or before the date of the Encounter. The data comes from the [place] facility where the Encounter took place. Date/Time Smoking Status/Tobacco Use Comment [facility] Jan 26, 2022 03:15 PM VA-TOBACCO QUIT 15 YRS OR MORE [facility] Feb 05, 2020 12:27 PM VA-TOBACCO FORMER USER [facility] Feb 05, 2020 12:27 PM VA-TOBACCO QUIT 15 YRS OR MORE [facility] Jul 11, 2018 09:27 AM VA-TOBACCO NEVER USED [facility] Apr 26, 2016 12:48 PM QUIT TOBACCO >7 YEARS AGO [facility] Apr 28, 2015 01:17 PM QUIT TOBACCO >7 YEARS AGO [facility] Jul 22, 2014 01:15 PM QUIT TOBACCO >7 YEARS AGO [facility] May 07, 2013 01:37 PM QUIT TOBACCO >7 YEARS AGO [facility] Feb 14, 2007 09:05 AM QUIT TOBACCO >7 YEARS AGO [facility] Advance Directives: All historical and current Section Date Range: From patient's date of to the date document was created. This section includes ALL of a patient's completed or amended [place] Advance and Rescinded Directives. The entries below indicate that a directive exists for the patient, but an actual copy is not included with this document. The data comes from all [place] facilities. Date Advance Directives Provider Source Feb 18, 2025 ADVANCE DIRECTIVE RAHATGOYO Hector [facility] Encounter Notes: All associated encounter notes This section contains the clinical notes associated to the Encounter. Date/Time Encounter Note(s) Provider Source May 06, 2025 09:44 AM NEUROLOGY OUTPATIE NT NOTE: LOCAL TITLE: NEUROLOGY OUTPATIENT FOLLOW UP [facility] STANDARD TITLE: NEUROLOGY OUTPATIENT NOTE DATE OF NOTE: MAY 06, 2025@09:44 ENTRY DATE: MAY 06, 2025@09:45:17 AUTHOR: WICHO LANGE EXP COSIGNER: TWYLA BAHENA URGENCY: STATUS: COMPLETED NEUROLOGY OUTPATIENT FOLLOW UP [facility] NOTE Date of Visit: 06/02/24 09:00 TYPE OF ASSESSMENT [x] Follow up Outpatient [place] Identified with SSN and Chief Complaint: No active complaint, f/u appt PRIOR IMPRESSION AND PLAN (from visit on February 12, 20[address] Bahena and Nazario): Mr. Rodriguez is a 79 YO M [...] reversible causes of dementia labs: TSH, B12, folate - follow up with neuropsychological testing - MRI brain without contrast to evaluate for stroke and for generalized dementia related atrophy - RTC in 3 months to evaluate results of above tests Brief History: 79 YO gentleman who presents for follow up of dementia. He has a history of hyposmia, constipation, micrographia, and dream enactment behavior that later progressed to generalized issues with cognition and mood changes - particularly as relates to depression - which more recently progressed to include movement issues of small resting tremor and bradykinesia which is worse on the right. Interval History: - TSH, B12, folate, A1c not yet obtained - neuropsychiatric testing: was not able to be completed due to issues with scheduling - MRI: diffuse brain atrophy that is most prominent in the temporal lobes. Did not show evidence of stroke. He has had 4 falls since hte last time he was here and he was also found down and confused at the time so he wsa sent to the hospital for concern that he may have had a seizure. He was more confused for the rest of that day and did not remember the event. Has also had episodes of confusion getting up in the middle of the night at his assisted living facility and asking for breakfast. He has also stopped wanting to do his general cleanliness care. There has furthermore been issues with his mood that he has not wanted to do activities that previously gave him jet and has been worried about getting too far away from his home. His daughter also asked about [facility] paperwork as there is concern for PD and that is on the list of potential complications from exposure at [facility]. Review of Systems: Pt denies vertigo, headaches, sudden visual disturbances, facial droop, dysarthria, weakness, numbness/tingling, urinary/bowel incontinence or gait abnormalities. PHYSICAL EXAM: awake, alert, no apparent distress EOM intact, visual burnett and acuity normal face symmetric. facial sensation intact bilaterally tongue protrusion and trapezius elevation against resistance normal strength 5/5 throughout sensation to light touch intact in all extremities finger to nose intact in both arms 1+ reflexes throughout, flexor plantars movement exam: - walks with a walker, when walking without has a stooped posture and shuffling, unsteady gait - finger taps and toe taps are both bradykinetic, slightly worse on the right - some subtle cogwheel rigidity bilaterally - small resting tremor seen on right hand IMPRESSION: 79 YO gentleman who presents for follow up of dementia. He has a history of hyposmia, constipation, micrographia, and dream enactment behavior that later progressed to generalized issues with cognition and mood changes - particularly as relates to depression - which more recently progressed to include movement issues of small resting tremor and bradykinesia which is worse on the right with some cogwheeling. When last seen this was concerning for parkinson's disease or a parkinson plus disease such as Lewy Body Dementia but there was also a concern that he may have had a stroke in the past that could be a confound so obtained an MRI which has now shown no evidence of stroke but has shown diffuse brain atrophy with the temporal lobes the most atrophied areas. Overall, this picture is highly concerning for Lewy Body Dementia considering he developed mood and cognitive symptoms prior to developing movement symptoms. His history, however, could also be consistent with Alzheimers or other forms of dementia given the relatively minor movement aspect, so will refer for neuropsych testing to help distinguish specific form of dementia. Will also get reversible causes of dementia labwork which could not be obtained at previous visit. Will also start donepezil for cognition. Furthermore, as PD is a diagnoses listed with higher risk after exposure to the contaminated water at [facility], the family asked about legal process for applying for service connection from this aspect, informed them that this is not done through the clinic but that they can speak with the medical front desk specialist to try to get in touch with the correct office. Lastly, as there has been a mood aspect and concern for depression as a factor in Mr. Rodriguez's care, will add his PCP as a cosigner to this note so he can decide if he would like to refer Mr. Rodriguez to psychology/psychiatry at the next PCP appt. Also recommended that they reach out to his office to try to schedule an appt. PLAN: - reversible causes of dementia labs: TSH, B12, folate - follow up with neuropsychological testing - start donepezil 5mg for 4 weeks, then 10mg - will not start sinemet as this could worsen cognitive symptoms - discuss with PCP about potential referral to psychology/psychiatry for mood issues Discussed and examined patient with attending physician: Dr. Bahena /kimmy/ Wicho Lange M.D. resident physician Signed: 05/06/2025 11:57 /kimmy/ TWYLA BAHENA MD NEUROLOGY STAFF PHYSICIAN Cosigned: 05/06/2025 14:10 05/06/2025 ADDENDUM STATUS: COMPLETED Patient seen and examined with resident physician Dr. Lange. Case discussed and chart reviewed. I agree with the assessment and recommendations as noted. Summary: Briefly, patient is a 79 y.o. gentleman seen in follow up. He does suffer from dementia as well as parkinsonism, ? Lewy body ? work up in progress. Already working with PPT for fall prevention. For now will aboid dopamine undtil additional work up is completed and while starting donepezil Treatment plan: As outlined by Dr. Lange Follow-up care: 3 months Patient to go to ER if new symptoms develop. Patient call if any questions arise or if patient experiences side effects to any prescribed medication. Total time: 60 min /kimmy/ TWYLA BAHENA MD NEUROLOGY STAFF PHYSICIAN Signed: 05/06/2025 14:13 WICHO LANGE [facility]
--- OUTSIDE RECORDS SUMMARY | 2025-06-23 14:33 | XMS_ITS | Clinical Summary ---
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 Angioedema 11/27/2015 07/23/2023 Immunizations Immunization Administration Dates Next Due Influenza [...] 10:32 AM CDT Height 167.6 cm (5' 6) 03/06/2025 10:32 AM CDT Body Mass Index [...] 1 Tdap) 04/28/2025 04/28/2015, 04/12/2006 Influenza Immunization (#1) 07/13/202507/13, 09/26/2022, 08/25/2021, Additional history exists Colonoscopy Discontinued 08/29/2013 Colorectal Cancer Screening Discontinued TdaP Immunization Discontinued 04/28/2015 Pneumococcal Immunization (50+ years) Completed 12/12/2016, 04/28/2015, 11/14/2011, Additional history exists Pneumococcal Immunization Combined Discontinued 12/12/2016, 04/28/2015, 11/14/2011, Additional history exists Zoster Immunization Completed 01/26/2022, 08/07/2019, 01/29/2013 Cologuard Discontinued Hepatitis B Immunization Aged Out No longer eligible based on patient's age to complete this topic Human Papillomavirus (HPV) Immunization Aged Out No longer eligible based [...] Documents on File Type Date Recorded Patient Route Agent Expl anation Power of Melter Supervisor [employer] 03/05/2025 4:02 PM POA-HC, 02/24/2025 * Full Code (Latest Code Status on File) Date Activated Date Inactivated Comments 10/11/2023 5:45 PM 10/19/2023 4:19 PM CPR-Full Tr eatment: FULL ARREST: Attempt Resuscitation/CPR wit intubation and mechanical ventilation. PRE-ARREST: Use entire range of life support measures to stabilize the patient. Care Teams Pouncing Machine Operator Relationship Specialty Start Date End Date Kwasi Mustafa MD [address] [place] [address] PCP - General Internal Medicine 08/02/16
--- OUTSIDE RECORDS SUMMARY | 2025-06-23 14:33 | XMS_ITS | Clinical Summary ---
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
--- OUTSIDE RECORDS SUMMARY | 2025-06-23 14:33 | XMS_ITS | Continuity of Care Document ---
Author Name [facility] Organization [facility] Care Team Providers Care Tin Assorter Name Role Phone [facility] Unavailable Unavailable Problems Combined list of problems from [facility] and [facility] facilities. It does not include entries that were removed or entered in error. Problem Status Onset Date Problem Type Date of Resolution Comments Source Allergic Rhinitis Active Condition [facility] Coronary Artery Bypass * (ICD-9-CM V45.81) Active Condition [facility] Coronary artery disease (SNOMED CT 27633897) Active Condition [facility] Hyperlipidemia (SNOMED CT 21578672) Active Condition [facility] Hypertension (SNOMED CT 97159472) Active Condition [facility] Diagnosis: ICD-10-CM G20.C Parkinsonism, unspecified Active Diagnosis [facility] Diagnosis: ICD-10-CM G30.1 Alzheimer's disease with late onset Active Diagnosis [facility] Diagnosis: ICD-10-CM I25.10 Athscl heart disease of [place] coronary artery w/o ang pctrs Active Diagnosis [facility] Diagnosis: ICD-10-CM Z71.0 Prsn encntr hlth serv to consult on behalf of another person Active Diagnosis [facility] Diagnosis: ICD-10-CM R41.3 Other amnesia Active Diagnosis [facility] Medications Combined list of outpatient medications from [facility] and [facility] facilities.Medications provided include 1) outpatient medications from the last 15 months, and 2) patient-reported medications. Medication Details Route Status Patient Instructions Prescription Expires Prescription Number Last Dispense Date Ordering Provider Order Date Order Qty Source DONEPEZIL HCL 10MG TAB TAKE ONE-HALF TABLET BY MOUTH AT BEDTIME FOR 30 DAYS, THEN TAKE ONE TABLET AT BEDTIME FOR DEMENTIA (JUST BEFORE BEDTIME) ORAL ACTIVE 05/07/2026 [id number] WICHO BURK 2024 [facility] Allergies, Adverse Reactions, Alerts Combined list of allergies from [facility] Defense and [facility] facilities. It does not include entries that were removed or entered in error. Substance Category Reaction Severity Reaction type Status Date Reported Comments Source ATORVASTATIN Propensity to adverse reactions to drug (finding) Muscle pain active 5 [facility] LIPITOR Propensity to adverse reactions to drug (finding) Cramp active 7 [facility] RAMIPRIL Propensity to adverse reactions to drug (finding) Swelling active 2 [facility] ZOCOR Propensity to adverse reactions to drug (finding) Cramp active 7 [facility] Immunizations Combined list of available immunizations from the Department of Defense and Veterans Affairs facilities. Immunization Series Date Given Administered By Site Reaction Lot Number CVX Code Drug Maintenance Shop Laborer Status Comments Source ZOSTER RECOMBINANT 2 2021 187 complet ed [facility] INFLUENZA, INJECTABLE, QUADRIVALENT, PRESERVATIVE FREE 2018 150 complet ed [facility] Z[facility] RECOMBIN[facility] 1 2018 187 complet ed [facility] INFLUENZA, UNSPECIFIED FORMULATION 2017 88 complet ed [facility] INFLUENZA, UNSPECIFIED FORMULATION 2016 88 complet ed [facility] INFLUENZA, SEASONAL, INJECTABLE, PRESERVATIVE FREE 2015 140 complet ed [facility] INFLUENZA, SEASONAL, INJECTABLE, PRESERVATIVE FREE 2015 140 complet ed [facility] PNEUMOCO[facility]JUGATE PCV 13 2014 133 complet ed [facility] TDAP 2014 115 complet ed Left Deltoid [facility] INFLUENZA, SEASONAL, INJECTABLE, PRESERVATIVE FREE 2013 140 complet ed [facility] INFLUENZA, UNSPECIFIED FORMULATION 2012 88 complet ed [facility] ZOSTER LIVE 2012 121 complet ed [facility] INFLUENZA, UNSPECIFIED FORMULATION 2011 88 complet ed [facility] INFLUENZA, UNSPECIFIED FORMULATION 2011 88 complet ed [facility] PNEUMOCOCCAL, UNSPECIFIED FORMULATION 2011 109 complet ed [facility] Results Combined list of recent chemistry, hematology and other laboratory results from Department of Defense and Veterans Affairs, ranging from 15 months to all on record, depending upon the facility. Order Name Results Value Reference Range Date Interpretation Specimen Comments Source B12 COBALAMIN (VITAMIN B12) [MASS/VOLUM E] IN SERUM OR PLASMA 1525 pg/mL 213 - 816 05/06 H Specimen Type: SERUM No comment entered. Ordering Provider: SERGIO BURK Report Released Date/Time: May 06, 2025 11:18 AM Reporting Lab: [address] [address] Performing Lab: [address] [address] [facility] FOLATE (STL-AK) FOLATE [MASS/VOLUM E] IN SERUM OR PLASMA >40.0n g/mL 7 - 20 05/06 H Specimen Type: SERUM No comment entered. Ordering Provider: SERGIO BURK Report Released Date/Time: May 06, 2025 11:18 AM Reporting Lab: [address] [address] Performing Lab: [address] [address] [facility] TSH W/ REFLEX FT4 (STL) THYROTROPIN [UNITS/VOLU ME] IN SERUM OR PLASMA 1.512 u[IU]/ mL 0.47 - 5 05/06 Specimen Type: PLASMA No comment entered. Ordering Provider: SERGIO BURK Report Released Date/Time: May 06, 2025 11:18 AM Reporting Lab: [facility] [address] [facility] [address] Performing Lab: [facility] [address] [facility] [address] [facility] HGA1C HEMOGLOBIN A1C/HEMOGLO BIN.TOTAL IN BLOOD 5.6 4.0 - 6.0 05/06 Specimen Type: BLOOD No comment entered. Ordering Provider: SERGIO BURK Report Released Date/Time: May 06, 2025 11:18 AM Reporting Lab: [facility] [address] [facility] [address] Performing Lab: [address] [address] [facility] PROST. SPECIFIC AG.(PB-ST L) PROSTATE SPECIFIC AG [MASS/VOLUM E] IN SERUM OR PLASMA 4.369 ng/mL 0 - 4 01/19 HH Specimen Type: SERUM Comment: The listed sex of this patient may not be a typical indication for this test. Therefore, reference ranges or interpretiv e criteria listed may not be valid. Clinical correlation suggested. Ordering Provider: RADHA JACOME Report Released Date/Time: Jan 19, 2025 03:35 PM Reporting Lab: [facility] [address] [facility] [address] Performing Lab: [address] [address] [facility] Vital Signs Combined list of inpatient and outpatient Vital Signs from Department of Defense and Veterans Affairs, ranging from 12 months to all on record, depending upon the facility. Vital Sign Value Date Comments Source SYSTOLIC BLOOD PRESSURE 123 01/19/2025 14:32:15 [facility] DIASTOLIC BLOOD PRESSURE 72 01/19/2025 14:32:15 [facility] PULSE OXIMETRY 94 01/19/2025 14:32:15 [facility] WEIGHT 172.4 01/19/2025 14:32:15 [facility] BMI 28 kg/m2 01/19/2025 14:32:15 [facility] PAIN 0 01/19/2025 14:32:15 [facility] TEMPERATURE 97.6 01/19/2025 14:32:15 [facility] PULSE 59 01/19/2025 14:32:15 [facility] RESPIRATION 16 01/19/2025 14:32:15 [facility] SYSTOLIC BLOOD PRESSURE 115 12/15/2024 14:32:59 [facility] DIASTOLIC BLOOD PRESSURE 71 12/15/2024 14:32:59 [facility] PULSE OXIMETRY 95 12/15/2024 14:32:59 [facility] WEIGHT 173.5 12/15/2024 14:32:59 [facility] BMI 28 kg/m2 12/15/2024 14:32:59 [facility] PAIN 0 12/15/2024 14:32:59 [facility] TEMPERATURE 97.7 12/15/2024 14:32:59 [facility] PULSE 64 12/15/2024 14:32:59 [facility] RESPIRATION 18 12/15/2024 14:32:59 [facility] Encounters Combined list of: 1) Encounters from Department of [facility] Affairs facilities going backup to the last 18 months, not all [facility] inpatient encounters are included; 2) Encounters from the Department of [facility] facilities going backup to 280 months. Location Location Details Encounter Type Encounter Number Reason For Visit Attending Provider ADM Date DC Date Status Disposition Source [facility] Outpatient Encounter [id number] 10/24 [facility] Outpatient Encounter [id number] TREV NEWSOME 10/27 [facility] Outpatient Encounter [id number] 11/16 [facility] Outpatient Encounter [id number] 11/17 [facility] Outpatient Encounter [id number] TREV NEWSOME A 11/20 [facility] Outpatient Encounter [id number] Zenaida JACOME 12/11 [facility] OFFICE O/P EST MOD 30 MIN [id number] Diagnos is: ICD-10- CM R41.3 Other amnesia Kevin MONTEIRO A 12/15 [facility] PH1 ASSMT&MGMT NQHP 21-30 [id number] Diagnos is: ICD-10- CM Z71.0 Prsn encntr hlth serv to consult on behalf of another person RAHATTOM 01/19 [facility] OFFICE O/P EST LOW 20 MIN [id number] Diagnos is: ICD-10- CM I25.10 Athscl heart disease of [place] coronar y artery w/o ang pctrs BECCA RESTREPO A 01/19 [facility] OFF/OP CONSLTJ NEW/EST HI 55 [id number] Diagnos is: ICD-10- CM G30.1 [place] er's disease with late onset Ana Paula BAHENA 02/12 [facility] Outpatient Encounter [id number] 02/18 [facility] Outpatient Encounter [id number] 02/20 [facility] Outpatient Encounter [id number] 03/11 [facility] OFFICE O/P EST HI 40 MIN [id number] Diagnos is: ICD-10- CM G20.C Idania onism, unspeci Ana Paula Barber 05/06 [facility] N Social History Combined list of available smoking, tobacco, and other social history from Department of Defense and Veterans Affairs facilities. Social History Type Response Date Comment Sour e Tobacco smoking status NHIS [facility]ACCO FORMER USER 01/26/2022 [facility] of [facility] 01/26/2022 [facility] History of tobacco use MS-TOBACCO FORMER USER 02/05/2020 [facility] History of tobacco use MS-TOBACCO NEVER USED 07/11/2018 [facility] History of tobacco use QUIT TOBACCO >7 Y EARS AGO 04/26/2016 [facility] History of tobacco use QUIT TOBACCO >7 Y EARS AGO 04/28/2015 [facility] History of tobacco use QUIT TOBACCO >7 Y EARS AGO 07/22/2014 [facility] History of tobacco use QUIT TOBACCO >7 Y EARS AGO 05/07/2013 [facility] History of tobacco use QUIT TOBACCO >7 Y EARS AGO 02/14/2007 [facility] Plan of Care List of future care activities from Department of [facility] Affairs facilities. Additional future care activities may be listed in the Assessment and Plan section. Date/Time Care Activity Care Activity Detail Facili ty 07/30/2025 AMBULATORY - NONE AMBULATORY - NONE [facility] Advance Directives List of completed, amended, or rescinded Advance Directives on record at Department of [facility] facilities. An actual copy of the Directive is not included. Date Advance Directive Provider Source 02/18/2025 ADVANCE DIRECTIVE GOYO GIANG IS [facility]
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
--- NOTE | 2025-06-23 14:46 | ED_ITS ---
HPI - Altered Mental Status General Chief Complaint: Altered Mental Status Stated Complaint: ALOC Time Seen by Provider: 06/23/25 14:00 Source: patient Mode of arrival: EMS Limitations: dementia History of Present Illness HPI narrative: This is a 79 year old male that presents to the ER for confusion. Ongoing since yesterday. Nursing facility report patient seems generally weak. Patient does not have any complaints. Related Data Home Medications ?Medication ?Instructions ?Recorded ?Confirmed ?Last Taken ?Type Antacid 650 mg PO Q8-10H PRN Indigestion 06/13/24 06/13/24 Unknown History acetaminophen 650 mg 650 mg PO Q6-8H PRN Pain 06/13/24 06/13/24 Unknown History tablet,extended release albuterol sulfate 90 mcg/actuation 2 inh inhalation Q6-8H PRN Wheezing 06/13/24 06/13/24 Unknown History aerosol inhaler aspirin 81 mg capsule 81 mg PO DAILY 06/13/24 06/13/24 Unknown History fluoxetine 20 mg capsule 20 mg PO DAILY 06/13/24 06/13/24 Unknown History folic acid 1 mg tablet 1 mg PO DAILY 06/13/24 06/13/24 Unknown History guaifenesin 600 mg tablet, 600 mg PO BID 06/13/24 06/13/24 Unknown History extended release 12 hr vkkiekge-iap-gecyu 150 mcg-vit K1 2 tablet PO DAILY 06/13/24 06/13/24 Unknown History 30 mcg-lycop 300 mcg-lutein tablet (Centrum Minis Men 50 Plus) ondansetron 4 mg disintegrating 4 mg PO Q6H PRN Nausea 06/13/24 06/13/24 Unknown History tablet polyethylene glycol 3350 17 17 g PO BID PRN Constipation 06/13/24 06/13/24 Unknown History gram/dose oral powder (ClearLax) rosuvastatin 10 mg tablet 10 mg PO DAILY 06/13/24 06/13/24 Unknown History sennosides 8.6 mg tablet (senna) 8.6 mg PO BID PRN Constipation 06/13/24 06/13/24 Unknown History Allergies Allergy/AdvReac Type Severity Reaction Status Date / Time KIRA Inhibitors Allergy Unknown Verified 06/23/25 13:15 Review of Systems 2 Review of Systems: All systems reviewed & are unremarkable except as noted in HPI and below PMFSH Past Medical History Medical History (Updated 06/23/25 @ 16:46 by Barb Modi PA-C) Rash Seizure Dementia Hyperlipidemia Depression COPD (chronic obstructive pulmonary disease) Surgical History Surgical History Status post full thickness skin graft Left forearm History of two vessel coronary artery bypass graft Family History Family History Mother Heart disease Father Heart disease Social History Social History Social History: Patient reports that 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 He reports that he used to smoke a pack of cigarettes per day for ?a few years? but quit when he was quite young. He used to drink alcohol episodically but quit doing so many years ago. He denies any illicit substance use. Code status: DNR/DNI Surrogate decision maker: Edward Nice (Daughter) Smoking packs per day: 1 Smoking cigarettes per day: 20.0 Smoking status: Former smoker Alcohol intake: former Substance use: never Do You Feel Safe in your Home?: Yes Lack of Transportation: No Lack of Food: Never True Current Housing: I Have Housing Concerned About Future Housing: No Difficulty Paying Gas/Electric Bills: No Difficulty Paying for Meds: No Currently Unemployed: No Education: High School Diploma/GED Difficulty w/ Childcare or Family Care: No Spiritual care concerns: No Exam 2 Narrative: GENERAL: Well-appearing, well-nourished, and in no acute distress. HEAD: Normocephalic, atraumatic. EYES: PERRLA and EOMI. ENT: Nares clear, no rhinorrhea or epistaxis. Mucous membranes moist. Oropharynx without tonsillar hypertrophy exudate or other lesions. Bilateral TMs pearly tracy non-bulging NECK: Supple. No adenopathy or masses. CHEST: Clear to auscultation. No respiratory distress. No wheezes rales or rhonchi HEART: Regular rate and rhythm. No murmur heard. Normal peripheral pulses. ABDOMEN: Soft, nontender, nondistended, normal active bowel sounds. EXTREMITIES: Normal range of motion. No edema. Strength equal in bilateral upper and lower extremities (5/5) SKIN: Warm, dry, no rash. NEURO: No focal deficits. Alert and oriented x2. CN II-XII grossly intact PSYCH: Normal mood and affect Course Course Emergency Course: From conversation with family member this seems to be patient's baseline. No concerning findings on workup. Will be discharged back to facility Vital Signs Vital signs: Vital Signs Temperature 97.7 F 06/23/25 12:57 Pulse Rate 65 06/23/25 12:57 Respiratory Rate 18 06/23/25 12:57 Blood Pressure 138/80 06/23/25 12:57 Pulse Oximetry 100 06/23/25 12:57 Oxygen Delivery Room Air 06/23/25 12:57 Temperature 97.7 F 06/23/25 12:57 Pulse Rate 65 06/23/25 12:57 Respiratory Rate 18 06/23/25 12:57 Blood Pressure 138/80 06/23/25 12:57 Pulse Oximetry 100 06/23/25 12:57 Oxygen Delivery Room Air 06/23/25 12:57 MDM - Altered Mental Status MDM Narrative Medical decision making narrative: Patient presents the emergency department for reports of confusion from his nursing facility. He is afebrile and nontoxic appearing. He does not have any complaints. His vitals are stable. CBC shows mild normocytic anemia hemoglobin 11.5. Metabolic panel without concerning findings. Urine without evidence of infection. CT brain without acute findings. From conversation with family member this seems to be patient's baseline. No concerning findings on workup. Will be discharged back to facility Differential Diagnosis Differential diagnosis: Likely altered mental status, dementia and other (infection, dehydration) Lab Data Attestation: I reviewed the patient's lab results. 06/23/25 13:03 06/23/25 13:03 Labs: Lab Results 06/23/25 06/23/25 Range/Units 13:03 13:29 WBC 8.5 (4.5-10.0) K/mm3 RBC 3.74 L (4.6-6.20) M/mm3 Hgb 11.5 L (14.0-18.0) g/dL Hct 35.0 L (42.0-52.0) % MCV 93.6 (80-100) fl MCH 30.7 (26-34) pg MCHC 32.9 (32-36) g/dl RDW 13.6 (11.5-14.5) % Plt Count 189 (150-375) k/mm3 MPV 10.4 (7.4-10.4) fl Immature Gran % (Auto) 0.5 (0-0.5) % Neut % (Auto) 42.7 L (45.5-73.1) % Lymph % (Auto) 41.6 (18.3-44.2) % Dewitt % (Auto) 10.9 H (2.6-8.5) % Eos % (Auto) 3.7 (0-4.4) % Baso % (Auto) 0.6 (0.2-1.2) % Lymph # (Auto) 3.52 H (0.9-3.2) K/mm3 Dewitt # (Auto) 0.9 H (0.1-0.6) K/mm3 Eos # (Auto) 0.3 (0-0.3) K/mm3 Baso # (Auto) 0.1 (0.0-0.1) K/mm3 Abs Immat Gran (auto) 0.04 H (0.00-0.031) K/mm3 Absolute Neuts (auto) 3.6 (1.3-6.7) K/mm3 Absolute Nucleated RBC 0.000 (0.0-0.012) K/mm3 Nucleated RBC % 0.0 (0.0-0.2) % PT 13.8 (11.1-14.7) Seconds INR 1.0 APTT 34.1 (22.3-36.8) Seconds Sodium 131 L (137-145) mmol/L Potassium 3.7 (3.4-5.0) mmol/L Chloride 98 (98-107) mmol/L Carbon Dioxide 25 (22-30) mmol/L Anion Gap 8 (4-12) mmol/L BUN 10 (9-20) mg/dL Creatinine 0.86 (0.7-1.3) mg/dL Estim Creat Clear Calc 58 ml/min Estimated GFR > 60 (59 - ) Glucose 96 (65-110) mg/dL Calcium 8.9 (8.4-10.2) mg/dL Total Bilirubin 0.4 (0.2-1.3) mg/dL AST 33 (17-59) U/L ALT 21 (6-50) U/L Alkaline Phosphatase 53 (38-126) U/L Total Protein 6.1 L (6.3-8.2) g/dL Albumin 3.6 (3.5-5.1) g/dL Urine Color Yellow (Yellow) Urine Appearance Clear (Clear) Urine pH 6.5 (5.0-9.0) Ur Specific [place] 1.011 (1.001-1.035) Urine Protein Negative (Negative) mg/dL Urine Glucose (UA) Negative (Negative) mg/dL Urine Ketones Negative (Negative) mg/dL Ur Blood (Man) Negative (Negative) Urine Nitrate Negative (Negative) Urine Bilirubin Negative (Negative) Urine Urobilinogen 1.0 (<2.0) mg/dL Leukocyte Esterase Rfl Negative (Negative) BRIELLE/UL Imaging Data Radiologist's impression: ITS Impressions Head CT 06/23/25 14:52 IMPRESSION: 1. Old infarcts in the bilateral basal ganglia. No acute intracranial process. 2. Age-related changes including moderate diffuse volume loss and mild scattered white matter hypoattenuation consistent with chronic small vessel ischemic disease. ECG Data EKG #1: ECG completion date: 06/23/25 EKG Interpretation: bradycardia, sinus rhythm and no acute changes (compared to EKG 04/05) Critical Care Time Critical Care Time Critical Care Time: No Discharge Plan Discharge Clinical Impression: Generalized weakness Patient Disposition: NH Senior Care/Asst Living Condition: Stable Instructions: Weakness (ED) Additional Instructions: Return to the emergency department if you experience fever, chest pain, shortness of breath, abdominal pain with nausea and vomiting, focal weakness/numbness, or any other symptoms that are concerning to you. Follow up with primary care doctor Patient Language: Spanish Prescriptions: No Action fluoxetine 20 mg capsule 20 mg PO DAILY rosuvastatin 10 mg tablet 10 mg PO DAILY Antacid 650 mg PO Q8-10H PRN (Reason: Indigestion) sennosides [senna] 8.6 mg Tablet 8.6 mg PO BID PRN (Reason: Constipation) acetaminophen 650 mg Tablet Extended Release 650 mg PO Q6-8H PRN (Reason: Pain) folic acid 1 mg Tablet 1 mg PO DAILY polyethylene glycol 3350 [ClearLax] 17 gram/dose Powder 17 g PO BID PRN (Reason: Constipation) albuterol sulfate 90 mcg/actuation HFA aerosol inhaler 2 inh INHALATION Q6-8H PRN (Reason: Wheezing) ondansetron 4 mg Tablet,Disintegrating 4 mg PO Q6H PRN (Reason: Nausea) guaifenesin 600 mg Tablet Extended Release 12hr 600 mg PO BID aspirin 81 mg Capsule 81 mg PO DAILY Centrum Minis Men 50 Plus 106-09-274-150 mcg Tablet 2 tablet PO DAILY hydrocortisone 1 % Cream 1 applic topical Q12HR PRN (Reason: Rash) Qty: 1 0RF levetiracetam 750 mg Tablet 750 mg PO Q12HR Qty: 60 0RF doxycycline hyclate 100 mg Tablet 100 mg BYMOUTH Q12H Qty: 20 0RF Follow-up/Referrals: UNKNOWN,DOCTOR [Primary Care Provider] - Stand Alone Forms: [facility] Discharge
--- NOTE | 2025-06-23 15:07 | PC.NURSE ---
Christiano, staff at [facility] provided with pt. update.
--- NOTE | 2025-06-23 17:30 | PC.NURSE ---
Spoke with Edward PAN and informed of test results and that pt will be returning to facility.
--- NOTE | 2025-06-23 19:19 | PC.NURSE ---
Assumed care of patient after receiving bedside report from JUAN Zendejas @ [phone]
== END 2025-06-23 20:14 ==
PROVIDERS: Emergency Medicine; Emergency Provider Physician Assistant
DX: R53.1 Weakness (principal); F03.90 Unspecified dementia, unspecified severity, without behavioral disturbance, psychotic disturbance, mood disturbance, and anxiety; J44.9 Chronic obstructive pulmonary disease, unspecified; E78.5 Hyperlipidemia, unspecified; Z87.891 Personal history of nicotine dependence
CPT/HCPCS: 36415; 70450; 80053; 81003; 85025; 85610; 85730; 93005; 99284